=== PATIENT | male | born 1980 | race Caucasian/White ===

== ENCOUNTER → 2020-05-17 | Outpatient (CLI) | payer OTHER ==
[~2020-05-17] MED LIST: BUTA50TA PO; GABA400C PO; HYDR-3363 PO; HYDR7.5T38 PO; LUNE1TAB PO; LUNE2TAB PO; NEXI1CAP3 PO; NICO14DI3 TD; PRAZ2CAP PO; PRAZ5CAP PO; PRAZOSIN PO; PROZAC PO; STRATTERA PO; TOPI200T7 PO; TOPIPOW3 PO; VENL75CA PO; VIAG100T PO; VICO5TAB OR; [UNRECOGNIZED DRUG - OTHER] PO; compound cream TD
== END ==
LOC: M PAIN 08:28
PROVIDERS: ATTEND Family Medicine
DX: M47.817 Spondylosis without myelopathy or radiculopathy, lumbosacral region (principal); F17.200 Nicotine dependence, unspecified, uncomplicated; Z88.6 Allergy status to analgesic agent; Z79.899 Other long term (current) drug therapy

== ENCOUNTER → 2020-05-27 | Outpatient (CLI) | payer OTHER | LOC: M LABSMTC 09:41 | PROVIDERS: ATTEND Anesthesiology | DX: Z11.59 Encounter for screening for other viral diseases (principal) | CPT/HCPCS: C9803; U0003 ==

== ENCOUNTER → 2020-06-01 | Outpatient (CLI) | payer OTHER ==
[~2020-06-01] MED LIST changes: +BUPIVACAINE HCL 0.25% 30ML VIAL As Ordered ONE; +ISOVUE-M 300 61% 15ML VIAL As Ordered ONE; +LIDOCAINE 1% SDV 30ML VIAL As Ordered ONE; +TRIAMCINOLONE ACETONIDE SUSP 40 MG/ML VIAL (J3301) As Ordered ONE; +diazePAM 5 MG TAB As Ordered ONE; +diphenhydrAMINE 25MG CAP As Ordered ONE; +oxyCODONE 5MG TAB As Ordered ONE
--- NOTE | 2020-06-02 16:36 | ECWPNPC ---
PATIENT NAME: AB TURNER : 1980 GENDER: MALE VISIT DATE: 06/01/2020 DISCHARGE DATE: 06/01/20 1122 VISIT LOCKED DATE TIME: PHYSICIAN: CLEMENCIA WU MD RESOURCE: CLEMENCIA WU MD REASON FOR APPOINTMENT 1. BILATERAL LFBT L4-L5,L5-S1 HISTORY OF PRESENT ILLNESS GENERAL: -. FALL RISK SCREENING: SCREENING :TWO OR MORE FALLS WITHOUT INJURY IN THE PAST YEAR PATIENT REPORTS MULTIPLE FALLS WITHOUT INJURY, "KNEES GIVING OUT" 3 WEEKS AGO PAIN SCREENING: PATIENT HAS A COMPLAINT OF ACUTE OR CHRONIC PAIN :YES LOCATION OF PAIN:LOW BACK INTENSITY OF PAIN (SCALE OF 1 TO 10):8 WHAT DOES YOUR PAIN FEEL LIKE:ACHING, SHARP, THROBBING DURATION:CONTINOUS, ALL DAY, AWAKENS FROM SLEEP PAIN IS INCREASED BY:ACTIVITIES, PROLONGED STANDING PAIN IS DECREASED BY:USE OF PAIN MEDICATIONS NURSING NOTE: DISCUSSED RECENT VACCINATIONS OF PNEUMONIA AND INFLUENZA WITHIN LAST TWO WEEKS WITH DR. WU, PROVIDER AWARE AND OKAY WITH PROCEEDING WITH PROCEDURE. PAIN CENTER INTAKE QUESTIONS: DO YOU HAVE A HISTORY OF MRSA? :NO DO YOU TAKE A BLOOD THINNERS? :NO DO YOU HAVE ANY BLEEDING DISORDERS? :NO ANY NEW NUMBNESS OR WEAKNESS IN YOUR LEGS OR ARMS? :NO ANY PACEMAKER,DEFIBRILLATOR, OR DORSAL COLUMN STIMULATOR? :NO DO YOU HAVE ANY RASHES OR OPEN SORES? :YES FRAGILE SKIN ON LEGS, SKIN TEARS SCABBED OVER ARE YOU ALLERGIC TO IV DYE? :NO ARE YOU DIABETIC? :YES BORDERLINE ANY NEW PROBLEMS WITH YOUR MEDICATIONS? :NO HAVE YOU RECEIVED A VACCINE IN THE PAST 30 DAYS? :YES IF SO WHAT VACCINE AND WHEN? 2 WEEKS AGO PNEUMONIA AND INFLUENZA VACCINE (AT [facility] IN [place]) DO YOU PLAN TO RECEIVE A VACCINE IN THE NEXT 21 DAYS? :NO DO YOU TAKE ANY IMMUNOSUPPRESSIVE MEDICATIONS? :NO ANY HISTORY OF SEIZURES? :NO ANY HISTORY OF CARDIAC ISSUES OR EVENTS? :NO DO YOU HAVE SLEEP APNEA? :YES DO YOU WEAR A CPAP?NO BIPAP WITH 3LPM BLEED IN ANY RECENT HEAD INJURY? :NO DO YOU HAVE ANY NEW INFECTIONS? :NO IS THERE A CHANCE YOU COULD BE ? :NO ARE YOU BREAST FEEDING? :NO WHEN DID YOU LAST EAT? : 06/01/2020 0030 WHEN DID YOU LAST DRINK? : 06/01/2020 0400 WHAT DID YOU LAST DRINK? : WATER NAME OF PERSON DRIVING YOU HOME? : ABBIE TURNER (MOTHER) DO YOU HAVE ANY OTHER QUESTIONS OR CONCERNS? : NO CURRENT MEDICATIONS TAKING ARIPIPRAZOLE 20 MG TABLET 1 TABLET ORALLY ONCE A DAY, NOTES: 05/31/2020 0800 TAKING HYDROXYZINE HCL 25 MG TABLET 1 TABLET NEEDED ORALLY EVERY 8 HRS, NOTES: FEW DAYS AGO TAKING SERTRALINE HCL 100 MG TABLET 2 TABLET ORALLY ONCE A DAY, NOTES: 05/31/2020 0800 TAKING BUPROPION HCL ER (SR) 150 MG TABLET EXTENDED RELEASE 12 HOUR 1 TABLET IN THE MORNING ORALLY ONCE A DAY, NOTES: 05/31/2020 0800 TAKING PRAZOSIN HCL 2 MG CAPSULE 4 CAPSULE AT BEDTIME ORALLY ONCE A DAY, NOTES: 05/31/2020 2200 TAKING PREGABALIN 75 MG CAPSULE 1 CAPSULE ORALLY BID, NOTES: 05/31/2020 1400 TAKING ALBUTEROL SULFATE HFA 108 (90 BASE) MCG/ACT AEROSOL SOLUTION 2 PUFFS NEEDED INHALATION EVERY 4 HRS, NOTES: NONE RECENT TAKING CARISOPRODOL 350 MG TABLET 1 TABLET NEEDED ORALLY BID, NOTES: 05/31/2020 1800 TAKING TIOTROPIUM BROMIDE MONOHYDRATE 2.5 MCG/ACT AEROSOL SOLUTION 2 PUFFS INHALATION ONCE A DAY, NOTES: 05/31/2020 0800 TAKING RIBOFLAVIN 100 MG CAPSULE 2 CAPSULES ORALLY BID, NOTES: 05/31/2020 1300 TAKING SILDENAFIL CITRATE 100 MG TABLET 1 TABLET NEEDED ORALLY ONCE A DAY, NOTES: NONE RECENT TAKING OXYCODONE HCL 5 MG TABLET 1 TABLET NEEDED ORALLY BID MDD 2, NOTES: 05/31/2020 2100 TAKING EPINEPHRINE PF 1 MG/ML SOLUTION DIRECTED INJECTION , NOTES: NONE RECENT TAKING MULTIVITAMIN - TABLET 1 TABLET ORALLY ONCE A DAY, NOTES: 05/31/2020 0800 TAKING NICORETTE 2 MG GUM 1 PIECE FOR 30 MINUTE NEEDED MOUTH/THROAT 24 TIME(S) A DAY, NOTES: NONE RECENT TAKING BUDESONIDE-FORMOTEROL FUMARATE 160-4.5 MCG/ACT AEROSOL 2 PUFFS INHALATION TWICE A DAY, NOTES: 05/31/2020 1400 TAKING FAMOTIDINE 20 MG TABLET 1 TABLET AT BEDTIME NEEDED ORALLY ONCE A DAY, NOTES: NONE RECENT TAKING CARBOXYMETHYLCELLULOSE SODIUM 0.5 % SOLUTION 1 DROP OPHTHALMIC TID, NOTES: NONE RECENT TAKING ESZOPICLONE 2 MG TABLET 1 TABLET IMMEDIATELY BEFORE BEDTIME ORALLY ONCE A DAY, NOTES: 05/31/2020 2100 TAKING MAGNESIUM OXIDE 400 MG TABLET 1 TABLET NEEDED ORALLY ONCE A DAY, NOTES: 05/31/2020 0800 TAKING VITAMIN B COMPLEX - TABLET DIRECTED ORALLY DAILY, NOTES: 05/31/2020 0800 NOT-TAKING ZOLOFT 100 MG TABLET 1 TABLET ORALLY ONCE A DAY, NOTES: DUPLICATE MEDICATION LIST REVIEWED AND RECONCILED WITH THE PATIENT PAST MEDICAL HISTORY PTSD BORDERLINE DIABETIC TBI (2010, 2008, 2006) GANESH WITH BIPAP WITH 3 LITER BLEED IN DEPRESSION ANXIETY INSOMNIA ED (DUE TO MEDICATIONS) HYPOXIA (CO2 RETENTION) SECONDARY TO GANESH; TOXIN EXPOSURE WHILE DEPLOYED ALLERGIES KETOROLAC TROMETHAMINE: HIVES - ALLERGY LATEX (FOR ALLERGY USE ONLY): HIVES - ALLERGY WHEAT: HIVES - ALLERGY SURGICAL HISTORY CHEST TUBE PLACEMENT 02/1980 UMBILICAL HERNIA REPAIR 02/1980 APPENDECTOMY 2000 RIGHT INGUINAL HERNAI REPAIR 2012 GALLBLADDER REMOVED 2011 BOTTOM WISDOM TEETH REMOVED 2010 FAMILY HISTORY FATHER: 66 YRS, DIAGNOSED WITH UNSPECIFIED HEART DISEASE MOTHER: ALIVE, HYPERTENSION, UNSPECIFIED HEART DISEASE, DIABETES SIBLINGS: ALIVE SON(S): ALIVE DAUGHTER(S): ALIVE 2019 YRS 4 SONS AND 1 DAUGHTER, ALIVE AND WELL. SOCIAL HISTORY GENERAL: TOBACCO USE ARE YOU A:CURRENT SMOKER ARE YOU INTERESTED IN QUITTING?THINKING ABOUT QUITTING PREVIOUS QUIT ATTEMPTS?YES, WITHIN THE LAST 6 MONTHS. COUNSELED THE PATIENT ON SMOKING CESSATION, EDUCATION [id number]/2020 HOW MANY CIGARETTES A DAY DO YOU SMOKE?5 OR LESS HOW SOON AFTER YOU WAKE UP DO YOU SMOKE YOUR FIRST CIGARETTE?31-60 MIN HOW OFTEN DO YOU SMOKE CIGARETTES?EVERY DAY PATIENT COUNSELED ON THE DANGERS OF TOBACCO USE AND URGED TO QUIT:06/01/2020 LATEX QUESTIONNAIRE LATEX ALLERGY : HAVE YOU EVER DEVELOPED ANY TYPE OF REACTION AFTER HANDLING LATEX PRODUCTS SUCH RUBBER GLOVES, CONDOMS, DIAPHRAGMS, BALLOONS, SOCKS, OR UNDERWEAR?YES - PLEASE INDICATE :RUBBER GLOVES, CONDOMS LATEX ALLERGY : HAVE YOU EVER DEVELOPED ANY TYPE OF REACTION DURING OR AFTER DENTAL APPOINTMENT, VAGINAL/RECTAL EXAMINATION, SURGICAL PROCEDURE, OR ANY OTHER EXPOSURE?NO LATEX RISK : HAVE YOU EVER HAD ANY DIFFICULTY BREATHING OR HIVES AFTER EATING OR HANDLING ANY FRUITS, OR VEGETABLES; SUCH KIWI, BANANAS, STONE FRUITS, OR CHESTNUTSNO LATEX RISK : DO YOU HAVE A PREVIOUS PERSONAL HISTORY OF MORE THAN NINE SURGERIES, SPINA BIFIDA, OR REPEATED CATHERIZATIONS? NO LATEX RISK : ARE YOU FREQUENTLY EXPOSED TO LATEX PRODUCTS IN YOUR OCCUPATION?NO DATE ASKED : 05/31/2020 LUNG CANCER SCREENING SMOKING STATUS:CURRENT SMOKER IS THE PATIENT BETWEEN THE AGE OF 55 AND 77?NO ALCOHOL SCREENING DID YOU HAVE A DRINK CONTAINING ALCOHOL IN THE PAST YEAR?YES HOW OFTEN DID YOU HAVE A DRINK CONTAINING ALCOHOL IN THE PAST YEAR?MONTHLY OR LESS (1 POINT) HOW MANY DRINKS DID YOU HAVE ON A TYPICAL DAY WHEN YOU WERE DRINKING IN THE PAST YEAR?1 OR 2 (0 POINTS) HOW OFTEN DID YOU HAVE SIX OR MORE DRINKS ON ONE OCCASION IN THE PAST YEAR?NEVER (0 POINTS) POINTS1 INTERPRETATIONNEGATIVE RECREATIONAL DRUG USE DRUG USE?NO CAFFEINE CAFFEINE USE?YES 2-3 DAILY LANGUAGE LANGUAGES SPOKEN:SUDANESE LEARNING BARRIERS / SPECIAL NEEDS BARRIERS TO LEARNING?NO HEARING IMPAIRED?YES MINOR HEARING LOSS DUE TO VISION IMPAIRED?YES :CORRECTIVE LENSES COGNITIVELY IMPAIRED?NO READINESS TO LEARN?YES LEARNING PREFERENCES?YES :HANDOUTS, DEMONSTRATION/VERBAL INSTRUCTION, OTHER (PLEASE COMMENT) HANDS ON LEARNING CAPABILITIES PRESENT?YES EMOTIONAL BARRIERS?YES COMMENTSDOCUMENTED IN NOTES SECTION> PTSD SPECIAL DEVICES?YES :CANE SURVEY RESEARCH CENTER DIRECTOR NEEDED?NO DOMESTIC VIOLENCE STATUS: DO YOU FEEL SAFE IN YOUR ENVIRONMENT?YES OCCUPATION: COMBAT , 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 EXERCISE: WALKS, DAILY. MARITAL STATUS: . OTHERS AT HOME: SPOUSE, CHILDREN, MOTHER. PAIN CLINIC PFS, CLERGY, PUBLIC HEALTH REFERRALS HAS THE PATIENT BEEN EDUCATED REGARDING HIS/HER PLAN OF CARE?YES HAS THE PATIENT BEEN EDUCATED REGARDING PAIN, THE RISK FOR PAIN, THE IMPORTANCE OF EFFECTIVE PAIN MANAGEMENT, AND THE PAIN ASSESSMENT PROCESS?YES ADVANCE DIRECTIVE ADVANCE DIRECTIVE DISCUSSED WITH PATIENT:YES PATIENT DENIES ANY ADVANCED DIRECTIVES 05/31/20 REVIEWED WITH PATIENT 06/01/2020 0927 XIAO. HOSPITALIZATION/MAJOR DIAGNOSTIC PROCEDURE FOUR WEEKS VOLUNTARY ADMISSION TO SOLDIERS AND SAILORS [facility] 2011 VITAL SIGNS WT 185.4 LBS, HT 60 IN, BMI 36.20 INDEX, BP 121/69 MM HG, HR 85 /MIN, RR 18 /MIN, TEMP 98.0 F, OXYGEN SAT % 97%, SAFE IN ENV? (Y/N) Y, NA INITIALS AW 0859, REVIEWED BY: XIAO. EXAMINATION GENERAL EXAMINATION: THE PATIENT IS ALERT, ORIENTED TIMES THREE AND COOPERATIVE. HEART SHOWS REGULAR RHYTHM, NO MURMURS AND NO GALLOPS. LUNGS ARE CLEAR TO AUSCULTATION. ASSESSMENTS SPONDYLOSIS WITHOUT MYELOPATHY OR RADICULOPATHY, LUMBAR REGION - M47.816 (PRIMARY) SPONDYLOSIS WITHOUT MYELOPATHY OR RADICULOPATHY, LUMBOSACRAL REGION - M47.817 TREATMENT SPONDYLOSIS WITHOUT MYELOPATHY OR RADICULOPATHY, LUMBAR REGION SMC FACET BLOCK (PAIN)[id number] PROCEDURES PN LUMBAR FACET BLOCK THERAPEUTIC PRE PROCEDURE DIAGNOSIS LUMBAR SPONDYLOSIS, LUMBOSACRAL SPONDYLOSIS POST PROCEDURE DIAGNOSIS LUMBAR SPONDYLOSIS, LUMBOSACRAL SPONDYLOSIS PROCEDURE BILATERAL L4-L5 AND BILATERAL L5-S1 LUMBAR FACET THERAPEUTIC BLOCK SURGEON DR. CLEMENCIA WU LAUNDRY AGENT NONE ANESTHESIA LOCAL PRE PROCEDURE NOTE THE PATIENT HAS A HISTORY OF CHRONIC LOW BACK PAIN. I EVALUATED THE PATIENT AND REVIEWED THE CHART. I WENT OVER THE RISKS, ALTERNATIVES, AND BENEFITS ASSOCIATED WITH THIS PROCEDURE. I DISCUSSED THAT THE USE OF STEROIDS MAY CONTRIBUTE TO IMMUNOSUPPRESSION OF THE PATIENT'S BODY AGAINST INFECTIONS SUCH COVID-19. THE PATIENT IS AWARE OF THE POTENTIAL COMPLICATIONS ASSOCIATED WITH THIS VIRUS, INCLUDING, BUT NOT LIMITED TO, . THE PATIENT WOULD LIKE TO PROCEED AND GIVES CONSENT TO PERFORM THE PROCEDURE. THE PATIENT DENIES UNEXPLAINABLE WEIGHT LOSS, FEVER, CHILLS, OR NEW CHANGES IN URINARY OR BOWEL CONTROL. THE PATIENT IS COVID-19 NEGATIVE DESCRIPTION OF PROCEDURE THE PATIENT WAS BROUGHT TO THE PROCEDURE ROOM AND PLACED IN THE PRONE POSITION. THE LUMBOSACRAL AREA WAS CLEANED WITH CHLORAPREP SOLUTION AND DRAPED ASEPTICALLY. THE PROCEDURE WAS DONE UNDER STERILE CONDITIONS. A TIMEOUT WAS PERFORMED WHERE LATERALITY AND THE SITE OF THE PROCEDURE WERE CHECKED AND CONFIRMED WITH EVERYONE IN THE ROOM. UNDER FLUOROSCOPIC GUIDANCE, THE TARGET POINT WAS SELECTED AT THE RIGHT AND LEFT L4-L5 AND RIGHT AND LEFT L5-S1 FACET JOINTS. TARGET POINT WAS SELECTED AFTER LATERAL ROTATION AND TILT OF THE MAGNIFIER OF THE C-ARM. I CONFIRMED AGAIN WITH EVERYONE IN THE ROOM THE LATERALITY OF THE TARGET. LIDOCAINE 0.5% WAS USED TO NUMB THE SKIN AND THE SUBCUTANEOUS TISSUE BELOW IT. SPINAL NEEDLES, 22-GAUGE, WERE ADVANCED UNDER FLUOROSCOPIC GUIDANCE AND FOLLOWING PATIENT FEEDBACK UNTIL THE TARGETS WERE TOUCHED. THE POSITION OF THE NEEDLES WAS VERIFIED WITH AP AND LATERAL VIEWS. AFTER PROPER POSITION OF THE NEEDLES WAS ACHIEVED, ISOVUE-M DYE 30%, 0.1 ML, WAS INJECTED SHOWING ADEQUATE SPREAD OF THE DYE. KENALOG 20 MG WAS INJECTED AT EACH SITE. THEN, A SOLUTION OF 1.0 ML OF BUPIVACAINE 0.125% OF WAS USED TO FLUSH EACH SITE. THE MEDICATION WAS VERIFIED WITH THE NURSE. THERE WAS NO EVIDENCE OF BLOOD, PARESTHESIA OR CEREBROSPINAL FLUID DURING THE PROCEDURE. THE PATIENT WAS SENT TO THE RECOVERY ROOM. THE PATIENT WAS MOVING THE EXTREMITIES AND DOING WELL. THERE WERE NO COMPLICATIONS DURING THE PROCEDURE. ESTIMATED BLOOD LOSS WAS LESS THAN 5 ML. FLUOROSCOPY TIME WAS 33 SECONDS POST PROCEDURE NOTE IN THE RECOVERY ROOM, THE PATIENT ATE SALTINE CRACKERS AND THEN REMEMBERED HE HAS ALLERY TO WHEAT. THE PATIENT WAS GIVEN BENADRYL AND KEPT FOR OBSERVATION FOR A WHILE. THE PATIENT WILL BE SEEN IN A FOLLOW UP IN THE NEXT FEW WEEKS. I AM LOOKING FOR LONG LASTING RELIEF FOR THE PATIENT WITH THIS INTERVENTION. INSTRUCTIONS WERE GIVEN, QUESTIONS WERE ANSWERED, AND THE PATIENT EXPRESSED UNDERSTANDING AND AGREES WITH THE PLAN. I, ROGERS DONALD, DOCUMENTED THE ABOVE INFORMATION ACTING A SCRIBE FOR DR. WU. I HAVE REVIEWED THE ABOVE DOCUMENT, WRITTEN BY ROGERS DONALD, FIRE INVESTIGATION LIEUTENANT, AND I VERIFY THAT IT IS ACCURATE PROCEDURE CODES 46133 INJ PARAVERT F JNT L/S 1 LEV, MODIFIERS: 50 [id number] INJ PARAVERT F JNT L/S 2 LEV, MODIFIERS: 50 DISPOSITION & COMMUNICATION FOLLOW UP FOLLOW UP WITH GUN STOCK CHECKER (REASON: POST BILATERAL THERAPEUTIC FACET BLOCK L4-L5, L5-S1) ELECTRONICALLY SIGNED BY CLEMENCIA WU MD, MD ON 06/02/2020 AT 04:34 PM EDT DISCLAIMER : THIS IS A VISIT SUMMARY EXTRACTED FROM THE [employer] CHART. IT IS NOT A COPY OF THE [employer] PROGRESS NOTE. MTDD
--- NOTE | 2020-06-08 12:59 | REP ---
PARTIAL LUMBAR SPINE SERIES: 2-VIEWS HISTORY: Bilateral lumbar facet injection for pain. 33 seconds of fluoroscopy time is reported. FINDINGS: A sequence of two [id number] fluoroscopically obtained spot radiographs of the lumbar spine document various needle positions associated with lumbar facet injection procedure. MTDD
== END ==
LOC: M PAIN 08:30
PROVIDERS: ATTEND Anesthesiology
DX: M47.816 Spondylosis without myelopathy or radiculopathy, lumbar region (principal); M47.817 Spondylosis without myelopathy or radiculopathy, lumbosacral region; G47.33 Obstructive sleep apnea (adult) (pediatric); G47.00 Insomnia, unspecified; F17.210 Nicotine dependence, cigarettes, uncomplicated; Z86.59 Personal history of other mental and behavioral disorders; Z87.820 Personal history of traumatic brain injury; Z88.6 Allergy status to analgesic agent; Z91.018 Allergy to other foods; Z91.040 Latex allergy status; Z79.899 Other long term (current) drug therapy
CPT/HCPCS: 64493; 64494; J3301; Q9967

== ENCOUNTER → 2020-06-22 | Outpatient (CLI) | payer OTHER ==
[~2020-06-22] MED LIST changes: -BUPIVACAINE HCL 0.25% 30ML VIAL As Ordered ONE; -ISOVUE-M 300 61% 15ML VIAL As Ordered ONE; -LIDOCAINE 1% SDV 30ML VIAL As Ordered ONE; -TRIAMCINOLONE ACETONIDE SUSP 40 MG/ML VIAL (J3301) As Ordered ONE; -diazePAM 5 MG TAB As Ordered ONE; -diphenhydrAMINE 25MG CAP As Ordered ONE; -oxyCODONE 5MG TAB As Ordered ONE
--- NOTE | 2020-06-23 09:40 | ECWPNPC ---
PATIENT NAME: AB TURNER : 1980 GENDER: MALE VISIT DATE: 06/22/2020 DISCHARGE DATE: 06/22/20 0959 VISIT LOCKED DATE TIME: PHYSICIAN: AUGUST HUTCHINS RESOURCE: AUGUST HUTCHINS REASON FOR APPOINTMENT 1. POST BILATERAL THERAPEUTIC FACET BLOCK L4-L5, L5-S1 HISTORY OF PRESENT ILLNESS GENERAL: - 40-YEAR-OLD MALE IN FOR POST FACET BLOCK FOLLOW-UP. PATIENT FEELS THE PROCEDURE HELPED HIM FOR APPROXIMATELY 2 WEEKS. HE RATES HIS PAIN CURRENTLY AT A 7 OUT OF 10 AND DESCRIBES IT ACHING, SHARP, STABBING, AND TENDER. FALL RISK SCREENING: SCREENING :ONE FALL WITHOUT INJURY IN THE PAST YEAR PATEINT FELL IN 2019. PATIENT STATES HIS KNEES GAVE OUT. BRENDA DID NOT SEEK MEDICAL TREATMENT. PAIN SCREENING: PATIENT HAS A COMPLAINT OF ACUTE OR CHRONIC PAIN :YES LOCATION OF PAIN:LOW BACK INTENSITY OF PAIN (SCALE OF 1 TO 10):7 WHAT DOES YOUR PAIN FEEL LIKE:ACHING, SHARP, STABBING, TENDER DURATION:CONSTANT PAIN IS INCREASED BY:ACTIVITIES, PROLONGED STANDING PAIN IS DECREASED BY:USE OF PAIN MEDICATIONS, OTHERS PAIN MEDS , HEAT AND REST HELPS TO REDUCE PAIN. NURSING NOTE: -. PAIN CENTER INTAKE QUESTIONS: DO YOU HAVE A HISTORY OF MRSA? :NO DO YOU TAKE A BLOOD THINNERS? :NO DO YOU HAVE ANY BLEEDING DISORDERS? :NO ANY NEW NUMBNESS OR WEAKNESS IN YOUR LEGS OR ARMS? :NO ANY PACEMAKER,DEFIBRILLATOR, OR DORSAL COLUMN STIMULATOR? :NO DO YOU HAVE ANY RASHES OR OPEN SORES? :NO ARE YOU ALLERGIC TO IV DYE? :NO ARE YOU DIABETIC? :NO ANY NEW PROBLEMS WITH YOUR MEDICATIONS? :NO HAVE YOU RECEIVED A VACCINE IN THE PAST 30 DAYS? :NO DO YOU PLAN TO RECEIVE A VACCINE IN THE NEXT 21 DAYS? :NO DO YOU NEED ANY PRESCRIPTION? :NO DO YOU TAKE ANY IMMUNOSUPPRESSIVE MEDICATIONS? :NO IS THERE A CHANCE YOU COULD BE ? :NO ARE YOU BREAST FEEDING? :NO CURRENT MEDICATIONS TAKING ZOLOFT 100 MG TABLET 1 TABLET ORALLY ONCE A DAY, NOTES: DUPLICATE TAKING ARIPIPRAZOLE 20 MG TABLET 1 TABLET ORALLY ONCE A DAY, NOTES: 05/31/2020 0800 TAKING HYDROXYZINE HCL 25 MG TABLET 1 TABLET NEEDED ORALLY EVERY 8 HRS, NOTES: FEW DAYS AGO TAKING SERTRALINE HCL 100 MG TABLET 2 TABLET ORALLY ONCE A DAY, NOTES: 05/31/2020 0800 TAKING BUPROPION HCL ER (SR) 150 MG TABLET EXTENDED RELEASE 12 HOUR 1 TABLET IN THE MORNING ORALLY ONCE A DAY, NOTES: 05/31/2020 0800 TAKING PRAZOSIN HCL 2 MG CAPSULE 4 CAPSULE AT BEDTIME ORALLY ONCE A DAY, NOTES: 05/31/2020 2200 TAKING PREGABALIN 75 MG CAPSULE 1 CAPSULE ORALLY BID, NOTES: 05/31/2020 1400 TAKING ALBUTEROL SULFATE HFA 108 (90 BASE) MCG/ACT AEROSOL SOLUTION 2 PUFFS NEEDED INHALATION EVERY 4 HRS, NOTES: NONE RECENT TAKING CARISOPRODOL 350 MG TABLET 1 TABLET NEEDED ORALLY BID, NOTES: 05/31/2020 1800 TAKING TIOTROPIUM BROMIDE MONOHYDRATE 2.5 MCG/ACT AEROSOL SOLUTION 2 PUFFS INHALATION ONCE A DAY, NOTES: 05/31/2020 0800 TAKING RIBOFLAVIN 100 MG CAPSULE 2 CAPSULES ORALLY BID, NOTES: 05/31/2020 1300 TAKING SILDENAFIL CITRATE 100 MG TABLET 1 TABLET NEEDED ORALLY ONCE A DAY, NOTES: NONE RECENT TAKING OXYCODONE HCL 5 MG TABLET 1 TABLET NEEDED ORALLY BID MDD 2, NOTES: 05/31/2020 2100 TAKING EPINEPHRINE PF 1 MG/ML SOLUTION DIRECTED INJECTION , NOTES: NONE RECENT TAKING MULTIVITAMIN - TABLET 1 TABLET ORALLY ONCE A DAY, NOTES: 05/31/2020 0800 TAKING NICORETTE 2 MG GUM 1 PIECE FOR 30 MINUTE NEEDED MOUTH/THROAT 24 TIME(S) A DAY, NOTES: NONE RECENT TAKING BUDESONIDE-FORMOTEROL FUMARATE 160-4.5 MCG/ACT AEROSOL 2 PUFFS INHALATION TWICE A DAY, NOTES: 05/31/2020 1400 TAKING FAMOTIDINE 20 MG TABLET 1 TABLET AT BEDTIME NEEDED ORALLY ONCE A DAY, NOTES: NONE RECENT TAKING CARBOXYMETHYLCELLULOSE SODIUM 0.5 % SOLUTION 1 DROP OPHTHALMIC TID, NOTES: NONE RECENT TAKING ESZOPICLONE 2 MG TABLET 1 TABLET IMMEDIATELY BEFORE BEDTIME ORALLY ONCE A DAY, NOTES: 05/31/2020 2100 TAKING MAGNESIUM OXIDE 400 MG TABLET 1 TABLET NEEDED ORALLY ONCE A DAY, NOTES: 05/31/2020 0800 TAKING VITAMIN B COMPLEX - TABLET DIRECTED ORALLY DAILY, NOTES: 05/31/2020 0800 MEDICATION LIST REVIEWED AND RECONCILED WITH THE PATIENT PAST MEDICAL HISTORY PTSD BORDERLINE DIABETIC TBI (2010, 2008, 2006) GANESH WITH BIPAP WITH 3 LITER BLEED IN DEPRESSION ANXIETY INSOMNIA ED (DUE TO MEDICATIONS) HYPOXIA (CO2 RETENTION) SECONDARY TO GANESH; TOXIN EXPOSURE WHILE DEPLOYED ALLERGIES KETOROLAC TROMETHAMINE: HIVES - ALLERGY LATEX (FOR ALLERGY USE ONLY): HIVES - ALLERGY WHEAT: HIVES - ALLERGY SURGICAL HISTORY CHEST TUBE PLACEMENT 02/1980 UMBILICAL HERNIA REPAIR 02/1980 APPENDECTOMY 2000 RIGHT INGUINAL HERNAI REPAIR 2012 GALLBLADDER REMOVED 2011 BOTTOM WISDOM TEETH REMOVED 2010 FAMILY HISTORY FATHER: 66 YRS, DIAGNOSED WITH UNSPECIFIED HEART DISEASE MOTHER: ALIVE, HYPERTENSION, UNSPECIFIED HEART DISEASE, DIABETES SIBLINGS: ALIVE SON(S): ALIVE DAUGHTER(S): ALIVE 2019 YRS 4 SONS AND 1 DAUGHTER, ALIVE AND WELL. SOCIAL HISTORY GENERAL: TOBACCO USE ARE YOU A:CURRENT SMOKER ARE YOU INTERESTED IN QUITTING?THINKING ABOUT QUITTING PREVIOUS QUIT ATTEMPTS?YES, WITHIN THE LAST 6 MONTHS. COUNSELED THE PATIENT ON SMOKING CESSATION, EDUCATION [id number]/2020 HOW MANY CIGARETTES A DAY DO YOU SMOKE?5 OR LESS HOW SOON AFTER YOU WAKE UP DO YOU SMOKE YOUR FIRST CIGARETTE?31-60 MIN HOW OFTEN DO YOU SMOKE CIGARETTES?EVERY DAY PATIENT COUNSELED ON THE DANGERS OF TOBACCO USE AND URGED TO QUIT:06/22/2020 LATEX QUESTIONNAIRE LATEX ALLERGY : HAVE YOU EVER DEVELOPED ANY TYPE OF REACTION AFTER HANDLING LATEX PRODUCTS SUCH RUBBER GLOVES, CONDOMS, DIAPHRAGMS, BALLOONS, SOCKS, OR UNDERWEAR?YES - PLEASE INDICATE :RUBBER GLOVES, CONDOMS LATEX ALLERGY : HAVE YOU EVER DEVELOPED ANY TYPE OF REACTION DURING OR AFTER DENTAL APPOINTMENT, VAGINAL/RECTAL EXAMINATION, SURGICAL PROCEDURE, OR ANY OTHER EXPOSURE?NO LATEX RISK : HAVE YOU EVER HAD ANY DIFFICULTY BREATHING OR HIVES AFTER EATING OR HANDLING ANY FRUITS, OR VEGETABLES; SUCH KIWI, BANANAS, STONE FRUITS, OR CHESTNUTSNO LATEX RISK : DO YOU HAVE A PREVIOUS PERSONAL HISTORY OF MORE THAN NINE SURGERIES, SPINA BIFIDA, OR REPEATED CATHERIZATIONS? NO LATEX RISK : ARE YOU FREQUENTLY EXPOSED TO LATEX PRODUCTS IN YOUR OCCUPATION?NO DATE ASKED : 06/22/2020 LUNG CANCER SCREENING SMOKING STATUS:CURRENT SMOKER IS THE PATIENT BETWEEN THE AGE OF 55 AND 77?NO ALCOHOL SCREENING DID YOU HAVE A DRINK CONTAINING ALCOHOL IN THE PAST YEAR?YES HOW OFTEN DID YOU HAVE A DRINK CONTAINING ALCOHOL IN THE PAST YEAR?MONTHLY OR LESS (1 POINT) HOW MANY DRINKS DID YOU HAVE ON A TYPICAL DAY WHEN YOU WERE DRINKING IN THE PAST YEAR?1 OR 2 (0 POINTS) HOW OFTEN DID YOU HAVE SIX OR MORE DRINKS ON ONE OCCASION IN THE PAST YEAR?NEVER (0 POINTS) POINTS1 INTERPRETATIONNEGATIVE RECREATIONAL DRUG USE DRUG USE?NO CAFFEINE CAFFEINE USE?YES 2-3 DAILY LANGUAGE LANGUAGES SPOKEN:GEORGIAN LEARNING BARRIERS / SPECIAL NEEDS BARRIERS TO LEARNING?NO HEARING IMPAIRED?YES MINOR HEARING LOSS DUE TO VISION IMPAIRED?YES COGNITIVELY IMPAIRED?NO :CORRECTIVE LENSES READINESS TO LEARN?YES LEARNING PREFERENCES?YES :HANDOUTS, DEMONSTRATION/VERBAL INSTRUCTION, OTHER (PLEASE COMMENT) HANDS ON LEARNING CAPABILITIES PRESENT?YES EMOTIONAL BARRIERS?YES COMMENTSDOCUMENTED IN NOTES SECTION> PTSD SPECIAL DEVICES?YES :CANE ASSEMBLY ASSOCIATE NEEDED?NO DOMESTIC VIOLENCE STATUS: DO YOU FEEL SAFE IN YOUR ENVIRONMENT?YES OCCUPATION: COMBAT , 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 EXERCISE: WALKS, DAILY. MARITAL STATUS: . OTHERS AT HOME: SPOUSE, CHILDREN, MOTHER. PAIN CLINIC PFS, CLERGY, PUBLIC HEALTH REFERRALS HAS THE PATIENT BEEN EDUCATED REGARDING HIS/HER PLAN OF CARE?YES HAS THE PATIENT BEEN EDUCATED REGARDING PAIN, THE RISK FOR PAIN, THE IMPORTANCE OF EFFECTIVE PAIN MANAGEMENT, AND THE PAIN ASSESSMENT PROCESS?YES ADVANCE DIRECTIVE ADVANCE DIRECTIVE DISCUSSED WITH PATIENT:YES PATIENT DENIES ANY ADVANCED DIRECTIVES 05/31/20 REVIEWED WITH PATIENT 06/01/2020 0927 JS. HOSPITALIZATION/MAJOR DIAGNOSTIC PROCEDURE FOUR WEEKS VOLUNTARY ADMISSION TO SOLDIERS AND SAILORS [facility] 2011 REVIEW OF SYSTEMS CONSTITUTIONAL: ANY RECENT FEVER NO . CHILLS NO . WEIGHT CHANGE OF UNKNOWN REASONS NO . GASTROENTEROLOGY: NEW UNEXPLAINABLE CHANGES IN BOWEL CONTROL NO . CONSTIPATION NO . GENITOURINARY: ANY NEW CHANGE IN BLADDER CONTROL? NO . NEUROLOGY: NEW ONSET DIZZINESS OR NEUROLOGICAL CHANGES NOT MENTIONED NO . NEW NUMBNESS OR PAIN PATTERNS NOT MENTIONED AND PERTINENT TO TODAY'S VISIT NO . CARDIOLOGY: NEW CHEST PRESSURE NO . NEW CHEST PAIN NO . RESPIRATORY: UNEXPLAINABLE COUGH NO . NEW SHORTNESS OF BREATH NO . VITAL SIGNS WT 179.8 LBS, HT 60 IN, BMI 35.11 INDEX, BP 120/75 MM HG, HR 95 /MIN, RR 18 /MIN, TEMP 97.6 F, OXYGEN SAT % 96%, SAFE IN ENV? (Y/N) YES, NA INITIALS AW 0923, REVIEWED BY: DM. EXAMINATION GENERAL EXAMINATION: GENERALNO ACUTE DISTRESS, WELL NOURISHED AND HYDRATED. PSYCHAPPROPRIATE MOOD AND AFFECT . LUNGS:CLEAR TO AUSCULTATION BILATERALLY, NO WHEEZES, RHONCHI, RALES. HEART:NO MURMURS, REGULAR RATE AND RHYTHM. BACK:POINT TENDER ALONG LUMBAR SPINE, SURROUNDING SKIN SHOWS NO ERYTHEMA, ECCHYMOSIS, INCREASED WARMTH, AND/OR SKIN ERUPTIONS NOTED. PATIENT DOES ENDORSE INCREASED PAIN WITH FACET LOADING. . ASSESSMENTS SPONDYLOSIS OF LUMBOSACRAL REGION WITHOUT MYELOPATHY OR RADICULOPATHY - M47.817 (PRIMARY) OTHER CHRONIC PAIN - G89.29 TREATMENT SPONDYLOSIS OF LUMBOSACRAL REGION WITHOUT MYELOPATHY OR RADICULOPATHY PAIN PROCEDURE LOGDATE OF MTXYRIINP27/30/2020PROCEDURE:BILATERAL THERAPEUTIC FACET BLOCK L4-L5, L5-S1NYYPLW OF PRE SEDATEVALIUM 10MG, OXYCODONE 10MG CLINICAL NOTES: 40-YEAR-OLD MALE IN FOR POST BILATERAL THERAPEUTIC LUMBAR FACET BLOCK FOLLOW-UP. GIVEN PRESENTING SYMPTOMS AND RESULTS OF PHYSICAL EXAMINATION RECOMMENDED BILATERAL THERAPEUTIC LUMBAR FACET BLOCK L4-L5 L5-S1 WITH POSTPROCEDURAL FOLLOW-UP. PATIENT HAS EXPRESSED UNDERSTANDING OF AND WAS IN AGREEMENT WITH TREATMENT PLAN. GIVEN TIME TO ASK QUESTIONS AND EXPRESS CONCERNS. PREVENTIVE MEDICINE PAIN CLINIC TEACHING: THE PATIENT HAS BEEN EDUCATED REGARDING PAIN, THE RISK FOR PAIN, THE IMPORTANCE OF EFFECTIVE PAIN MANAGEMENT, AND THE PAIN ASSESSMENT PROCESS. : DISCUSSED PRE PROCEDURE INSTRUCTIONS, PATIENT CARE PLAN, AND TEACHING FOR: BILATERAL THERAPEUTIC LUMBAR FACET BLOCK L4-L5 L5-S1, PATIENT VERBALIZES UNDERSTANDING. PROCEDURE CODES FA211 ESTABILISHED PATIENT [facility] FAC[facility] CHARGE DISPOSITION & COMMUNICATION FOLLOW UP POSTPROCEDURE (REASON: BILATERAL THERAPEUTIC LUMBAR FACET BLOCK L4-L5 L5-S1) ELECTRONICALLY SIGNED BY REDDY RAE ON 06/23/2020 AT 08:41 AM EDT DISCLAIMER : THIS IS A VISIT SUMMARY EXTRACTED FROM THE [facility] CHART. IT IS NOT A COPY OF THE [facility] PROGRESS NOTE. MTDD
== END ==
LOC: M PAIN 09:30
PROVIDERS: ATTEND Family Medicine
DX: G89.29 Other chronic pain (principal); M47.817 Spondylosis without myelopathy or radiculopathy, lumbosacral region; F43.10 Post-traumatic stress disorder, unspecified; R73.03 Prediabetes; G47.33 Obstructive sleep apnea (adult) (pediatric); F32.9 Major depressive disorder, single episode, unspecified; F41.9 Anxiety disorder, unspecified; F17.210 Nicotine dependence, cigarettes, uncomplicated; Z79.899 Other long term (current) drug therapy; Z91.040 Latex allergy status; Z91.018 Allergy to other foods; Z88.8 Allergy status to other drugs, medicaments and biological substances

== ENCOUNTER → 2020-07-08 | Outpatient (CLI) | payer OTHER | LOC: M LABSMTC 11:02 | PROVIDERS: ATTEND Anesthesiology | DX: Z20.828 Contact with and (suspected) exposure to other viral communicable diseases (principal) | CPT/HCPCS: C9803; U0003 ==

== ENCOUNTER → 2020-07-13 | Outpatient (CLI) | payer OTHER ==
[~2020-07-13] MED LIST changes: +BUPIVACAINE HCL 0.25% 30ML VIAL As Ordered ONE; +ISOVUE-M 300 61% 15ML VIAL As Ordered ONE; +LIDOCAINE 1% SDV 30ML VIAL As Ordered ONE; +TRIAMCINOLONE ACETONIDE SUSP 40 MG/ML VIAL (J3301) As Ordered ONE; +diazePAM 5 MG TAB As Ordered ONE; +oxyCODONE 5MG TAB As Ordered ONE
--- NOTE | 2020-07-13 15:40 | REP ---
INDICATION: BILATERAL THERAPEUTIC LUMBAR FACET BLOCK. COMPARISON: 06/01/2020 TECHNIQUE: Two images from C-arm fluoroscopy provided for the Pain [facility] and bilateral lumbar facet injections. FINDINGS: A single oblique image of for approach reviewed side shows a needle at the L4-5 and L5-S1 facets with contrast adjacent. Both right and left sides were injected at these levels. Fluoroscopy time: 35.4 seconds. IMPRESSION: Status post bilateral lower lumbar facet steroid injection. <Electronically signed by Asher Royal > 07/13/20 [id number]
--- NOTE | 2020-07-19 02:22 | ECWPNPC ---
PATIENT NAME: AB TURNER : 1980 GENDER: MALE VISIT DATE: 07/13/2020 DISCHARGE DATE: 07/13/20 155 VISIT LOCKED DATE TIME: PHYSICIAN: CLEMENCIA WU MD RESOURCE: CLEMENCIA WU MD REASON FOR APPOINTMENT 1. BILAT THERA LUMBAR FACET BLK L4-L5 L5-S1 HISTORY OF PRESENT ILLNESS GENERAL: -. FALL RISK SCREENING: SCREENING :TWO OR MORE FALLS WITHOUT INJURY IN THE PAST YEAR STATES HE FALLS ALMOST DAILY DUE TO KNEES GIVING OUT ON HIM PAIN SCREENING: PATIENT HAS A COMPLAINT OF ACUTE OR CHRONIC PAIN :YES LOCATION OF PAIN:LOW BACK INTENSITY OF PAIN (SCALE OF 1 TO 10):6 AVERAGE 7-04/11 WHAT DOES YOUR PAIN FEEL LIKE:ACHING, BURNING, CONTINOUS, SHARP, TENDER, THROBBING, SORE, SHOOTING OCCASSIONAL SHOOTING DURATION:CONTINOUS PAIN IS INCREASED BY: EVERYTHING PAIN IS DECREASED BY: HEAT HELPS A LITTLE, PAIN MEDS, LYING DOWN WITH HEATED BLANKET NURSING NOTE: -. PAIN CENTER INTAKE QUESTIONS: DO YOU HAVE A HISTORY OF MRSA? :NO DO YOU TAKE A BLOOD THINNERS? :NO DO YOU HAVE ANY BLEEDING DISORDERS? :NO ANY NEW NUMBNESS OR WEAKNESS IN YOUR LEGS OR ARMS? :NO ANY PACEMAKER,DEFIBRILLATOR, OR DORSAL COLUMN STIMULATOR? :NO DO YOU HAVE ANY RASHES OR OPEN SORES? :NO ARE YOU ALLERGIC TO IV DYE? :NO ARE YOU DIABETIC? :YES PRE-DIABETIC ANY NEW PROBLEMS WITH YOUR MEDICATIONS? :NO HAVE YOU RECEIVED A VACCINE IN THE PAST 30 DAYS? :NO DO YOU PLAN TO RECEIVE A VACCINE IN THE NEXT 21 DAYS? :NO DO YOU TAKE ANY IMMUNOSUPPRESSIVE MEDICATIONS? :NO ANY HISTORY OF SEIZURES? :NO ANY HISTORY OF CARDIAC ISSUES OR EVENTS? :NO DO YOU HAVE SLEEP APNEA? :YES DO YOU WEAR A CPAP? BIPAP WITH 3L O2 BLED INTO IT ANY RECENT HEAD INJURY? :NO DO YOU HAVE ANY NEW INFECTIONS? :NO IS THERE A CHANCE YOU COULD BE ? :NO ARE YOU BREAST FEEDING? :NO WHEN DID YOU LAST EAT? : 07/13 530 WHEN DID YOU LAST DRINK? : 07/13 730 WHAT DID YOU LAST DRINK? : WATER NAME OF PERSON DRIVING YOU HOME? : ABBIE-MOM DO YOU HAVE ANY OTHER QUESTIONS OR CONCERNS? : NONE CURRENT MEDICATIONS TAKING ZOLOFT 100 MG TABLET 1 TABLET ORALLY ONCE A DAY, NOTES: 07/13 730 TAKING ARIPIPRAZOLE 20 MG TABLET 1 TABLET ORALLY ONCE A DAY, NOTES: 07/13 730 TAKING HYDROXYZINE HCL 25 MG TABLET 1 TABLET NEEDED ORALLY EVERY 8 HRS, NOTES: 2 WEEKS AGO TAKING SERTRALINE HCL 100 MG TABLET 2 TABLET ORALLY ONCE A DAY, NOTES: 07/13 730 TAKING BUPROPION HCL ER (SR) 150 MG TABLET EXTENDED RELEASE 12 HOUR 1 TABLET IN THE MORNING ORALLY ONCE A DAY, NOTES: 07/13 730 TAKING PRAZOSIN HCL 2 MG CAPSULE 4 CAPSULE AT BEDTIME ORALLY ONCE A DAY, NOTES: 07/12 2200 TAKING PREGABALIN 75 MG CAPSULE 1 CAPSULE ORALLY BID, NOTES: 07/13 730 TAKING ALBUTEROL SULFATE HFA 108 (90 BASE) MCG/ACT AEROSOL SOLUTION 2 PUFFS NEEDED INHALATION EVERY 4 HRS, NOTES: 07/12 2000 TAKING CARISOPRODOL 350 MG TABLET 1 TABLET NEEDED ORALLY BID, NOTES: 07/12 2200 TAKING TIOTROPIUM BROMIDE MONOHYDRATE 2.5 MCG/ACT AEROSOL SOLUTION 2 PUFFS INHALATION ONCE A DAY, NOTES: 07/12 2000 TAKING RIBOFLAVIN 100 MG CAPSULE 2 CAPSULES ORALLY BID, NOTES: 07/13 730 TAKING SILDENAFIL CITRATE 100 MG TABLET 1 TABLET NEEDED ORALLY ONCE A DAY, NOTES: NONE RECENT TAKING OXYCODONE HCL 5 MG TABLET 1 TABLET NEEDED ORALLY BID MDD 2, NOTES: 07/13 730 TAKING EPINEPHRINE PF 1 MG/ML SOLUTION DIRECTED INJECTION , NOTES: NEVER TAKING MULTIVITAMIN - TABLET 1 TABLET ORALLY ONCE A DAY, NOTES: 07/13 730 TAKING NICORETTE 2 MG GUM 1 PIECE FOR 30 MINUTE NEEDED MOUTH/THROAT 24 TIME(S) A DAY, NOTES: 2 WEEKS AGO TAKING BUDESONIDE-FORMOTEROL FUMARATE 160-4.5 MCG/ACT AEROSOL 2 PUFFS INHALATION TWICE A DAY, NOTES: 07/13 730 TAKING FAMOTIDINE 20 MG TABLET 1 TABLET AT BEDTIME NEEDED ORALLY ONCE A DAY, NOTES: 07/12 2200 TAKING CARBOXYMETHYLCELLULOSE SODIUM 0.5 % SOLUTION 1 DROP OPHTHALMIC TID, NOTES: LAST WEEK TAKING ESZOPICLONE 2 MG TABLET 1 TABLET IMMEDIATELY BEFORE BEDTIME ORALLY ONCE A DAY, NOTES: 07/12 2200 TAKING MAGNESIUM OXIDE 400 MG TABLET 1 TABLET NEEDED ORALLY ONCE A DAY, NOTES: 11/11 0730 TAKING VITAMIN B COMPLEX - TABLET DIRECTED ORALLY DAILY, NOTES: 07/13 730 MEDICATION LIST REVIEWED AND RECONCILED WITH THE PATIENT PAST MEDICAL HISTORY PTSD BORDERLINE DIABETIC TBI (2010, 2008, 2006) GANESH WITH BIPAP WITH 3 LITER BLEED IN DEPRESSION ANXIETY INSOMNIA ED (DUE TO MEDICATIONS) HYPOXIA (CO2 RETENTION) SECONDARY TO GANESH; TOXIN EXPOSURE WHILE DEPLOYED LOW BACK PAIN ALLERGIES KETOROLAC TROMETHAMINE: HIVES - ALLERGY LATEX (FOR ALLERGY USE ONLY): HIVES - ALLERGY WHEAT: HIVES - ALLERGY SURGICAL HISTORY CHEST TUBE PLACEMENT 02/1980 UMBILICAL HERNIA REPAIR 02/1980 APPENDECTOMY 2000 RIGHT INGUINAL HERNAI REPAIR 2012 GALLBLADDER REMOVED 2011 BOTTOM WISDOM TEETH REMOVED 2010 FAMILY HISTORY FATHER: 66 YRS, DIAGNOSED WITH UNSPECIFIED HEART DISEASE MOTHER: ALIVE, HYPERTENSION, UNSPECIFIED HEART DISEASE, DIABETES SIBLINGS: ALIVE SON(S): ALIVE DAUGHTER(S): ALIVE 2019 YRS 4 SONS AND 1 DAUGHTER, ALIVE AND WELL. SOCIAL HISTORY GENERAL: TOBACCO USE ARE YOU A:CURRENT SMOKER ARE YOU INTERESTED IN QUITTING?THINKING ABOUT QUITTING PREVIOUS QUIT ATTEMPTS?YES, WITHIN THE LAST 6 MONTHS. COUNSELED THE PATIENT ON SMOKING CESSATION, EDUCATION [id number]/21/2020 HOW MANY CIGARETTES A DAY DO YOU SMOKE?5 OR LESS HOW SOON AFTER YOU WAKE UP DO YOU SMOKE YOUR FIRST CIGARETTE?31-60 MIN HOW OFTEN DO YOU SMOKE CIGARETTES?EVERY DAY PATIENT COUNSELED ON THE DANGERS OF TOBACCO USE AND URGED TO QUIT:07/12/2020 LATEX QUESTIONNAIRE LATEX ALLERGY : HAVE YOU EVER DEVELOPED ANY TYPE OF REACTION AFTER HANDLING LATEX PRODUCTS SUCH RUBBER GLOVES, CONDOMS, DIAPHRAGMS, BALLOONS, SOCKS, OR UNDERWEAR?YES - PLEASE INDICATE :RUBBER GLOVES, CONDOMS LATEX ALLERGY : HAVE YOU EVER DEVELOPED ANY TYPE OF REACTION DURING OR AFTER DENTAL APPOINTMENT, VAGINAL/RECTAL EXAMINATION, SURGICAL PROCEDURE, OR ANY OTHER EXPOSURE?NO LATEX RISK : HAVE YOU EVER HAD ANY DIFFICULTY BREATHING OR HIVES AFTER EATING OR HANDLING ANY FRUITS, OR VEGETABLES; SUCH KIWI, BANANAS, STONE FRUITS, OR CHESTNUTSNO LATEX RISK : DO YOU HAVE A PREVIOUS PERSONAL HISTORY OF MORE THAN NINE SURGERIES, SPINA BIFIDA, OR REPEATED CATHERIZATIONS? NO LATEX RISK : ARE YOU FREQUENTLY EXPOSED TO LATEX PRODUCTS IN YOUR OCCUPATION?NO DATE ASKED : 07/12/2020 LUNG CANCER SCREENING SMOKING STATUS:CURRENT SMOKER IS THE PATIENT BETWEEN THE AGE OF 55 AND 77?NO ALCOHOL SCREENING DID YOU HAVE A DRINK CONTAINING ALCOHOL IN THE PAST YEAR?YES HOW OFTEN DID YOU HAVE SIX OR MORE DRINKS ON ONE OCCASION IN THE PAST YEAR?NEVER (0 POINTS) HOW MANY DRINKS DID YOU HAVE ON A TYPICAL DAY WHEN YOU WERE DRINKING IN THE PAST YEAR?1 OR 2 (0 POINTS) HOW OFTEN DID YOU HAVE A DRINK CONTAINING ALCOHOL IN THE PAST YEAR?MONTHLY OR LESS (1 POINT) POINTS1 INTERPRETATIONNEGATIVE RECREATIONAL DRUG USE DRUG USE?NO CAFFEINE CAFFEINE USE?YES 2-3 DAILY LANGUAGE LANGUAGES SPOKEN:EGYPTIAN LEARNING BARRIERS / SPECIAL NEEDS BARRIERS TO LEARNING?NO HEARING IMPAIRED?YES MINOR HEARING LOSS DUE TO VISION IMPAIRED?YES :CORRECTIVE LENSES COGNITIVELY IMPAIRED?NO READINESS TO LEARN?YES LEARNING PREFERENCES?YES :HANDOUTS, DEMONSTRATION/VERBAL INSTRUCTION, OTHER (PLEASE COMMENT) HANDS ON LEARNING CAPABILITIES PRESENT?YES EMOTIONAL BARRIERS?YES COMMENTSDOCUMENTED IN NOTES SECTION> PTSD SPECIAL DEVICES?YES :CANE TRAUMA MANAGER NEEDED?NO DOMESTIC VIOLENCE STATUS: DO YOU FEEL SAFE IN YOUR ENVIRONMENT?YES OCCUPATION: COMBAT , 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 EXERCISE: WALKS, DAILY. MARITAL STATUS: . OTHERS AT HOME: SPOUSE, CHILDREN, MOTHER. PAIN CLINIC PFS, CLERGY, PUBLIC HEALTH REFERRALS HAS THE PATIENT BEEN EDUCATED REGARDING HIS/HER PLAN OF CARE?YES HAS THE PATIENT BEEN EDUCATED REGARDING PAIN, THE RISK FOR PAIN, THE IMPORTANCE OF EFFECTIVE PAIN MANAGEMENT, AND THE PAIN ASSESSMENT PROCESS?YES ADVANCE DIRECTIVE ADVANCE DIRECTIVE DISCUSSED WITH PATIENT:YES 07/13/2020 PT STATES HE DOES NOT HAVE ANY ADVANCED DIRECTIVES AND HE DECLINES INFORMATION ON HCP AT THIS TIME. AD HOSPITALIZATION/MAJOR DIAGNOSTIC PROCEDURE FOUR WEEKS VOLUNTARY ADMISSION TO [facility] 2011 VITAL SIGNS WT 180.4 LBS, HT 60 IN, BMI 35.23 INDEX, BP 130/76 MM HG, HR 86 /MIN, RR 18 /MIN, TEMP 96.8 F, OXYGEN SAT % 96%, SAFE IN ENV? (Y/N) Y, NA INITIALS AW 1400, REVIEWED BY: ALLY BOLES 1412. EXAMINATION GENERAL EXAMINATION: THE PATIENT IS ALERT, ORIENTED TIMES THREE AND COOPERATIVE. HEART SHOWS REGULAR RHYTHM, NO MURMURS AND NO GALLOPS. LUNGS ARE CLEAR TO AUSCULTATION. ASSESSMENTS SPONDYLOSIS WITHOUT MYELOPATHY OR RADICULOPATHY, LUMBAR REGION - M47.816 (PRIMARY) SPONDYLOSIS WITHOUT MYELOPATHY OR RADICULOPATHY, LUMBOSACRAL REGION - M47.817 TREATMENT SPONDYLOSIS WITHOUT MYELOPATHY OR RADICULOPATHY, LUMBAR REGION [facility] FACET BLOCK (PAIN)[id number] MEDICATION: VALIUM TAB 10MG ORALLY (DIAZEPAM)GADIEL LERMA 07/13/2020 2:35:11 PM > LOT # [id number] EXP 12/2020 COURTNEY ARANA 07/13/2020 2:37:01 PM > VERIFIED GADIEL LERMA 07/13/2020 2:40:14 PM > ADMINISTERED MEDICATION: OXYCODONE HCL TAB 10MG ORALLYCOURTNEY ARANA 07/13/2020 2:37:55 PM > VERIFIED LOT [id number] COURTNEY ARANA 07/13/2020 2:38:13 PM > EXP 10/2021 GADIEL LERMA 07/13/2020 2:40:43 PM > ADMINISTERED OTHERS NOTES: 07/12/2020 1516 PRE-PROCEDURE CALL COMPLETED. Dorota LERMA RN. PROCEDURES PAIN NURSING RECORD PRE-PROCEDURE IV SITE N/A, PRE-PROCEDURE ORAL MEDICATIONS SEE MEDICATIONS ORDER : IV SITE N/A, PRE-PROCEDURE ORAL MEDICATIONS SEE MEDICATIONS ORDER PROCEDURE IN ROOM 1500, PHYSICIAN IN ROOM 1517, START 1522, FINISH 1528, PHYSICIAN OUT OF ROOM 1529, OUT OF ROOM 1535, STEROID KENALOG, O2 RA, ECG NORMAL SINUS, PATIENT SHIELDED YES, SAFETY STRAP YES, PREP CHLOROPREP BY Radha ARANA RN, IV INFUSED N/A, DRESSING TEGADERM BY DR. WU LOC: GADIEL LERMA 07/13/2020 2:43:41 PM > 1. ALERT, ORIENTED MARIA GUADALUPEGADIEL 07/13/2020 3:49:24 PM > 1. ALERT, ORIENTED RESP: GADIEL LERMA 07/13/2020 2:43:44 PM > 1. REGULAR, NO DYSPNEA GADIEL LERMA 07/13/2020 3:49:43 PM > 1. REGULAR, NO DYSPNEA COLOR: GADIEL LERMA 07/13/2020 2:43:48 PM > 1. PINK MARIA GUADALUPEGADIEL 07/13/2020 3:49:50 PM > 1. PINK SKIN: GADIEL LERMA 07/13/2020 2:43:58 PM > 1. WARM, DRY FORREST LERMAITA 07/13/2020 3:49:57 PM > 1. WARM, DRY POSITION: GADIEL LERMA 07/13/2020 3:01:52 PM > 1. PRONE GADIEL LERMA 07/13/2020 3:50:05 PM > 4. OTHER-SITTING VITALS: GADIEL LERMA 07/13/2020 3:02:04 PM > 133/85,80,16,96% GADIEL LERMA 07/13/2020 3:16:04 PM > 138/82,82,16,97% GADIEL LERMA 07/13/2020 3:31:18 PM > 139/86,81,16,95% GADIEL LERMA 07/13/2020 3:50:19 PM > 120/79,81,16,99% DISCHARGE: POST PAIN 0, DRESSING SITE DRY AND INTACT, IV N/A, GAIT STEADY, TEACHING COMPLETED, PATIENT ACKNOWLEDGES UNDERSTANDING YES, PATIENT DISCHARGED AT 1551 PN LUMBAR FACET BLOCK THERAPEUTIC PRE PROCEDURE DIAGNOSIS LUMBAR SPONDYLOSIS, LUMBOSACRAL SPONDYLOSIS POST PROCEDURE DIAGNOSIS LUMBAR SPONDYLOSIS, LUMBOSACRAL SPONDYLOSIS PROCEDURE BILATERAL L4-L5 AND BILATERAL L5-S1 LUMBAR FACET THERAPEUTIC BLOCK SURGEON DR. CLEMENCIA WU CLOUD ADMINISTRATOR NONE ANESTHESIA LOCAL PRE PROCEDURE NOTE THE PATIENT HAS A HISTORY OF CHRONIC LOW BACK PAIN. I EVALUATED THE PATIENT AND REVIEWED THE CHART. I WENT OVER THE RISKS, ALTERNATIVES, AND BENEFITS ASSOCIATED WITH THIS PROCEDURE. I DISCUSSED THAT THE USE OF STEROIDS MAY CONTRIBUTE TO IMMUNOSUPPRESSION OF THE PATIENT'S BODY AGAINST INFECTIONS SUCH COVID-19. THE PATIENT IS AWARE OF THE POTENTIAL COMPLICATIONS ASSOCIATED WITH THIS VIRUS, INCLUDING, BUT NOT LIMITED TO, . THE PATIENT WOULD LIKE TO PROCEED AND GIVES CONSENT TO PERFORM THE PROCEDURE. THE PATIENT DENIES UNEXPLAINABLE WEIGHT LOSS, FEVER, CHILLS, OR NEW CHANGES IN URINARY OR BOWEL CONTROL. THE PATIENT IS COVID-19 NEGATIVE DESCRIPTION OF PROCEDURE THE PATIENT WAS BROUGHT TO THE PROCEDURE ROOM AND PLACED IN THE PRONE POSITION. THE LUMBOSACRAL AREA WAS CLEANED WITH CHLORAPREP SOLUTION AND DRAPED ASEPTICALLY. THE PROCEDURE WAS DONE UNDER STERILE CONDITIONS. A TIMEOUT WAS PERFORMED WHERE LATERALITY AND THE SITE OF THE PROCEDURE WERE CHECKED AND CONFIRMED WITH EVERYONE IN THE ROOM. UNDER FLUOROSCOPIC GUIDANCE, THE TARGET POINT WAS SELECTED AT THE RIGHT AND LEFT L4-L5 AND RIGHT AND LEFT L5-S1 FACET JOINTS. TARGET POINT WAS SELECTED AFTER LATERAL ROTATION AND TILT OF THE MAGNIFIER OF THE C-ARM. I CONFIRMED AGAIN WITH EVERYONE IN THE ROOM THE LATERALITY OF THE TARGET. LIDOCAINE 0.5% WAS USED TO NUMB THE SKIN AND THE SUBCUTANEOUS TISSUE BELOW IT. SPINAL NEEDLES, 22-GAUGE, WERE ADVANCED UNDER FLUOROSCOPIC GUIDANCE AND FOLLOWING PATIENT FEEDBACK UNTIL THE TARGETS WERE TOUCHED. THE POSITION OF THE NEEDLES WAS VERIFIED WITH AP AND LATERAL VIEWS. AFTER PROPER POSITION OF THE NEEDLES WAS ACHIEVED, ISOVUE-M DYE 30%, 0.1 ML, WAS INJECTED SHOWING ADEQUATE SPREAD OF THE DYE. KENALOG 20 MG WAS INJECTED AT EACH SITE. THEN, A SOLUTION OF 1.0 ML OF BUPIVACAINE 0.125% OF WAS USED TO FLUSH EACH SITE. THE MEDICATION WAS VERIFIED WITH THE NURSE. THERE WAS NO EVIDENCE OF BLOOD, PARESTHESIA OR CEREBROSPINAL FLUID DURING THE PROCEDURE. THE PATIENT WAS SENT TO THE RECOVERY ROOM. THE PATIENT WAS MOVING THE EXTREMITIES AND DOING WELL. THERE WERE NO COMPLICATIONS DURING THE PROCEDURE. ESTIMATED BLOOD LOSS WAS LESS THAN 5 ML. FLUOROSCOPY TIME WAS 35 SECONDS POST PROCEDURE NOTE DEPENDING ON THE RESULTS, WE CAN CONSIDER DOING DIAGNOSTIC FACET BLOCKS TO CONSIDER RADIOFREQUENCY. THE PATIENT WILL BE SEEN IN A FOLLOW UP IN THE NEXT FEW WEEKS. I AM LOOKING FOR LONG LASTING RELIEF FOR THE PATIENT WITH THIS INTERVENTION. INSTRUCTIONS WERE GIVEN, QUESTIONS WERE ANSWERED, AND THE PATIENT EXPRESSED UNDERSTANDING AND AGREES WITH THE PLAN. I, ROGERS DONALD, DOCUMENTED THE ABOVE INFORMATION ACTING A SCRIBE FOR DR. WU. I HAVE REVIEWED THE ABOVE DOCUMENT, WRITTEN BY ROGERS DONALD, ULTRASONIC SOLDERER, AND I VERIFY THAT IT IS ACCURATE PROCEDURE CODES 78459 INJ PARAVERT F JNT L/S 1 LEV, MODIFIERS: 50 [id number] INJ PARAVERT F JNT L/S 2 LEV, MODIFIERS: 50 DISPOSITION & COMMUNICATION FOLLOW UP FOLLOW UP WITH STEWARD/STEWARDESS (REASON: POST THERAPEUTIC BILATERAL L4-L5, L5-S1 ) ELECTRONICALLY SIGNED BY CLEMENCIA WU MD, MD ON 07/18/2020 AT 02:11 PM EST DISCLAIMER : THIS IS A VISIT SUMMARY EXTRACTED FROM THE [employer] CHART. IT IS NOT A COPY OF THE [employer] PROGRESS NOTE. NEIL
== END ==
LOC: M PAIN 14:00
PROVIDERS: ATTEND Anesthesiology
DX: M47.816 Spondylosis without myelopathy or radiculopathy, lumbar region (principal); M47.817 Spondylosis without myelopathy or radiculopathy, lumbosacral region; F43.10 Post-traumatic stress disorder, unspecified; R73.03 Prediabetes; G47.33 Obstructive sleep apnea (adult) (pediatric); F32.9 Major depressive disorder, single episode, unspecified; F41.9 Anxiety disorder, unspecified; G47.00 Insomnia, unspecified; N52.2 Drug-induced erectile dysfunction; F17.210 Nicotine dependence, cigarettes, uncomplicated; Z79.899 Other long term (current) drug therapy; Z88.8 Allergy status to other drugs, medicaments and biological substances; Z91.040 Latex allergy status; Z91.018 Allergy to other foods
CPT/HCPCS: 64493; 64494; J3301; Q9967

== ENCOUNTER → 2020-07-27 | Outpatient (CLI) | payer OTHER ==
[~2020-07-27] MED LIST changes: -BUPIVACAINE HCL 0.25% 30ML VIAL As Ordered ONE; -ISOVUE-M 300 61% 15ML VIAL As Ordered ONE; -LIDOCAINE 1% SDV 30ML VIAL As Ordered ONE; -TRIAMCINOLONE ACETONIDE SUSP 40 MG/ML VIAL (J3301) As Ordered ONE; -diazePAM 5 MG TAB As Ordered ONE; -oxyCODONE 5MG TAB As Ordered ONE
--- NOTE | 2020-08-02 09:30 | ECWPNPC ---
PATIENT NAME: AB TURNER : 1980 GENDER: MALE VISIT DATE: 07/27/2020 DISCHARGE DATE: 07/27/20 1008 VISIT LOCKED DATE TIME: PHYSICIAN: AUGUST HUTCHINS RESOURCE: AUGUST HUTCHINS REASON FOR APPOINTMENT 1. POST BILAT THERA LUMBAR FACET BLK L4-L5 L5-S1 HISTORY OF PRESENT ILLNESS FALL RISK SCREENING: SCREENING :TWO OR MORE FALLS WITHOUT INJURY IN THE PAST YEAR 40-YEAR-OLD MALE IN FOR POST BILATERAL THERAPEUTIC LUMBAR FACET BLOCK HE RATES HIS PAIN CURRENTLY AT A 4 OUT OF 10. AND DESCRIBES IT ACHING, SHARP, AND STABBING. HE FEELS THE PROCEDURE WORKED WELL OVERALL RATING HIS PAIN PREPROCEDURE AT A 7-8 OUT OF 10 AND POSTPROCEDURE AT A 3-4 OUT OF 10. PAIN SCREENING: PATIENT HAS A COMPLAINT OF ACUTE OR CHRONIC PAIN :YES LOCATION OF PAIN:LOW BACK INTENSITY OF PAIN (SCALE OF 1 TO 10):4 WHAT DOES YOUR PAIN FEEL LIKE:ACHING, SHARP, STABBING DURATION:CONTINOUS, CONSTANT, STEADY, ALL DAY PAIN IS INCREASED BY:ACTIVITIES, PROLONGED STANDING WALKING IN [place] PAIN IS DECREASED BY:USE OF PAIN MEDICATIONS, OTHERS HEAT, INJECTIONS NURSING NOTE: - -. PAIN CENTER INTAKE QUESTIONS: DO YOU HAVE A HISTORY OF MRSA? :NO DO YOU TAKE A BLOOD THINNERS? :NO DO YOU HAVE ANY BLEEDING DISORDERS? :NO ANY NEW NUMBNESS OR WEAKNESS IN YOUR LEGS OR ARMS? :NO ANY PACEMAKER,DEFIBRILLATOR, OR DORSAL COLUMN STIMULATOR? :NO DO YOU HAVE ANY RASHES OR OPEN SORES? :NO ARE YOU ALLERGIC TO IV DYE? :NO ARE YOU DIABETIC? :NO BORDERLINE ANY NEW PROBLEMS WITH YOUR MEDICATIONS? :NO HAVE YOU RECEIVED A VACCINE IN THE PAST 30 DAYS? :NO DO YOU PLAN TO RECEIVE A VACCINE IN THE NEXT 21 DAYS? :NO DO YOU NEED ANY PRESCRIPTION? :NO DO YOU TAKE ANY IMMUNOSUPPRESSIVE MEDICATIONS? :NO IS THERE A CHANCE YOU COULD BE ? :NO ARE YOU BREAST FEEDING? :NO CURRENT MEDICATIONS TAKING ZOLOFT 100 MG TABLET 1 TABLET ORALLY ONCE A DAY TAKING ARIPIPRAZOLE 20 MG TABLET 1 TABLET ORALLY ONCE A DAY TAKING HYDROXYZINE HCL 25 MG TABLET 1 TABLET NEEDED ORALLY EVERY 8 HRS TAKING SERTRALINE HCL 100 MG TABLET 2 TABLET ORALLY ONCE A DAY TAKING BUPROPION HCL ER (SR) 150 MG TABLET EXTENDED RELEASE 12 HOUR 1 TABLET IN THE MORNING ORALLY ONCE A DAY TAKING PRAZOSIN HCL 2 MG CAPSULE 4 CAPSULE AT BEDTIME ORALLY ONCE A DAY TAKING PREGABALIN 75 MG CAPSULE 1 CAPSULE ORALLY BID TAKING ALBUTEROL SULFATE HFA 108 (90 BASE) MCG/ACT AEROSOL SOLUTION 2 PUFFS NEEDED INHALATION EVERY 4 HRS TAKING CARISOPRODOL 350 MG TABLET 1 TABLET NEEDED ORALLY BID TAKING TIOTROPIUM BROMIDE MONOHYDRATE 2.5 MCG/ACT AEROSOL SOLUTION 2 PUFFS INHALATION ONCE A DAY TAKING RIBOFLAVIN 100 MG CAPSULE 2 CAPSULES ORALLY BID TAKING SILDENAFIL CITRATE 100 MG TABLET 1 TABLET NEEDED ORALLY ONCE A DAY TAKING OXYCODONE HCL 5 MG TABLET 1 TABLET NEEDED ORALLY BID MDD 2 TAKING EPINEPHRINE PF 1 MG/ML SOLUTION DIRECTED INJECTION , NOTES: NEVER TAKING MULTIVITAMIN - TABLET 1 TABLET ORALLY ONCE A DAY TAKING BUDESONIDE-FORMOTEROL FUMARATE 160-4.5 MCG/ACT AEROSOL 2 PUFFS INHALATION TWICE A DAY TAKING FAMOTIDINE 20 MG TABLET 1 TABLET AT BEDTIME NEEDED ORALLY ONCE A DAY TAKING CARBOXYMETHYLCELLULOSE SODIUM 0.5 % SOLUTION 1 DROP OPHTHALMIC TID TAKING ESZOPICLONE 2 MG TABLET 1 TABLET IMMEDIATELY BEFORE BEDTIME ORALLY ONCE A DAY TAKING MAGNESIUM OXIDE 400 MG TABLET 1 TABLET NEEDED ORALLY ONCE A DAY TAKING VITAMIN B COMPLEX - TABLET DIRECTED ORALLY DAILY TAKING PENICILLIN V POTASSIUM 250 MG TABLET 1 TABLET ORALLY QID, NOTES: JAW INFECTION NOT-TAKING NICORETTE 2 MG GUM 1 PIECE FOR 30 MINUTE NEEDED MOUTH/THROAT 24 TIME(S) A DAY MEDICATION LIST REVIEWED AND RECONCILED WITH THE PATIENT PAST MEDICAL HISTORY PTSD BORDERLINE DIABETIC TBI (2010, 2008, 2006) GANESH WITH BIPAP WITH 3 LITER BLEED IN DEPRESSION ANXIETY INSOMNIA ED (DUE TO MEDICATIONS) HYPOXIA (CO2 RETENTION) SECONDARY TO GANESH; TOXIN EXPOSURE WHILE DEPLOYED LOW BACK PAIN ALLERGIES KETOROLAC TROMETHAMINE: HIVES - ALLERGY LATEX (FOR ALLERGY USE ONLY): HIVES - ALLERGY WHEAT: HIVES - ALLERGY SURGICAL HISTORY CHEST TUBE PLACEMENT 02/1980 UMBILICAL HERNIA REPAIR 02/1980 APPENDECTOMY 2000 RIGHT INGUINAL HERNAI REPAIR 2012 GALLBLADDER REMOVED 2011 BOTTOM WISDOM TEETH REMOVED 2010 FAMILY HISTORY FATHER: 66 YRS, DIAGNOSED WITH UNSPECIFIED HEART DISEASE MOTHER: ALIVE, HYPERTENSION, DIABETES, UNSPECIFIED HEART DISEASE SIBLINGS: ALIVE SON(S): ALIVE DAUGHTER(S): ALIVE 2019 YRS 4 SONS AND 1 DAUGHTER, ALIVE AND WELL. SOCIAL HISTORY GENERAL: TOBACCO USE ARE YOU A:CURRENT SMOKER ARE YOU INTERESTED IN QUITTING?THINKING ABOUT QUITTING PREVIOUS QUIT ATTEMPTS?YES, WITHIN THE LAST 6 MONTHS. COUNSELED THE PATIENT ON SMOKING CESSATION, EDUCATION [id number]/21/2020 HOW MANY CIGARETTES A DAY DO YOU SMOKE?5 OR LESS HOW SOON AFTER YOU WAKE UP DO YOU SMOKE YOUR FIRST CIGARETTE?31-60 MIN HOW OFTEN DO YOU SMOKE CIGARETTES?EVERY DAY PATIENT COUNSELED ON THE DANGERS OF TOBACCO USE AND URGED TO QUIT:07/12/2020 LATEX QUESTIONNAIRE LATEX ALLERGY : HAVE YOU EVER DEVELOPED ANY TYPE OF REACTION AFTER HANDLING LATEX PRODUCTS SUCH RUBBER GLOVES, CONDOMS, DIAPHRAGMS, BALLOONS, SOCKS, OR UNDERWEAR?YES - PLEASE INDICATE :RUBBER GLOVES, CONDOMS LATEX ALLERGY : HAVE YOU EVER DEVELOPED ANY TYPE OF REACTION DURING OR AFTER DENTAL APPOINTMENT, VAGINAL/RECTAL EXAMINATION, SURGICAL PROCEDURE, OR ANY OTHER EXPOSURE?NO LATEX RISK : HAVE YOU EVER HAD ANY DIFFICULTY BREATHING OR HIVES AFTER EATING OR HANDLING ANY FRUITS, OR VEGETABLES; SUCH KIWI, BANANAS, STONE FRUITS, OR CHESTNUTSNO LATEX RISK : DO YOU HAVE A PREVIOUS PERSONAL HISTORY OF MORE THAN NINE SURGERIES, SPINA BIFIDA, OR REPEATED CATHERIZATIONS? NO LATEX RISK : ARE YOU FREQUENTLY EXPOSED TO LATEX PRODUCTS IN YOUR OCCUPATION?NO DATE ASKED : 07/12/2020 LATEX ALLERGY LUNG CANCER SCREENING SMOKING STATUS:CURRENT SMOKER IS THE PATIENT BETWEEN THE AGE OF 55 AND 77?NO ALCOHOL SCREENING DID YOU HAVE A DRINK CONTAINING ALCOHOL IN THE PAST YEAR?YES HOW OFTEN DID YOU HAVE SIX OR MORE DRINKS ON ONE OCCASION IN THE PAST YEAR?NEVER (0 POINTS) HOW MANY DRINKS DID YOU HAVE ON A TYPICAL DAY WHEN YOU WERE DRINKING IN THE PAST YEAR?1 OR 2 (0 POINTS) HOW OFTEN DID YOU HAVE A DRINK CONTAINING ALCOHOL IN THE PAST YEAR?MONTHLY OR LESS (1 POINT) POINTS1 INTERPRETATIONNEGATIVE RECREATIONAL DRUG USE DRUG USE?NO CAFFEINE CAFFEINE USE?YES 2-3 DAILY LANGUAGE LANGUAGES SPOKEN:ROMANIAN LEARNING BARRIERS / SPECIAL NEEDS CHANGE FROM LAST VISIT?NO BARRIERS TO LEARNING?NO HEARING IMPAIRED?YES MINOR HEARING LOSS DUE TO VISION IMPAIRED?YES :CORRECTIVE LENSES COGNITIVELY IMPAIRED?NO READINESS TO LEARN?YES LEARNING PREFERENCES?YES :HANDOUTS, DEMONSTRATION/VERBAL INSTRUCTION, OTHER (PLEASE COMMENT) HANDS ON LEARNING CAPABILITIES PRESENT?YES EMOTIONAL BARRIERS?YES COMMENTSDOCUMENTED IN NOTES SECTION> PTSD SPECIAL DEVICES?YES :CANE BENCH LOOM WEAVER NEEDED?NO DOMESTIC VIOLENCE STATUS: DO YOU FEEL SAFE IN YOUR ENVIRONMENT?YES OCCUPATION: COMBAT , 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 EXERCISE: WALKS, DAILY. MARITAL STATUS: . OTHERS AT HOME: SPOUSE, CHILDREN, MOTHER. PAIN CLINIC PFS, CLERGY, PUBLIC HEALTH REFERRALS HAS THE PATIENT BEEN EDUCATED REGARDING HIS/HER PLAN OF CARE?YES HAS THE PATIENT BEEN EDUCATED REGARDING PAIN, THE RISK FOR PAIN, THE IMPORTANCE OF EFFECTIVE PAIN MANAGEMENT, AND THE PAIN ASSESSMENT PROCESS?YES ADVANCE DIRECTIVE ADVANCE DIRECTIVE DISCUSSED WITH PATIENT:YES PT STATES HE DOES NOT HAVE ANY ADVANCED DIRECTIVES AND HE DECLINES INFORMATION ON HCP AT THIS TIME. HOSPITALIZATION/MAJOR DIAGNOSTIC PROCEDURE FOUR WEEKS VOLUNTARY ADMISSION TO [facility] 2011 REVIEW OF SYSTEMS CONSTITUTIONAL: ANY RECENT FEVER NO . CHILLS NO . WEIGHT CHANGE OF UNKNOWN REASONS NO . GASTROENTEROLOGY: NEW UNEXPLAINABLE CHANGES IN BOWEL CONTROL NO . CONSTIPATION NO . GENITOURINARY: ANY NEW CHANGE IN BLADDER CONTROL? NO . NEUROLOGY: NEW ONSET DIZZINESS OR NEUROLOGICAL CHANGES NOT MENTIONED NO . NEW NUMBNESS OR PAIN PATTERNS NOT MENTIONED AND PERTINENT TO TODAY'S VISIT NO . CARDIOLOGY: NEW CHEST PRESSURE NO . NEW CHEST PAIN NO . RESPIRATORY: UNEXPLAINABLE COUGH NO . NEW SHORTNESS OF BREATH NO . VITAL SIGNS WT 182.4 LBS, HT 60 IN, BMI 35.62 INDEX, BP 130/73 MM HG, HR 85 /MIN, RR 18 /MIN, TEMP 97.7 F, OXYGEN SAT % 97%, SAFE IN ENV? (Y/N) Y, NA INITIALS LA 09:41, REVIEWED BY: JSJ. CLAUS RN. EXAMINATION GENERAL EXAMINATION: GENERALNO ACUTE DISTRESS, WELL NOURISHED AND HYDRATED. PSYCHAPPROPRIATE MOOD AND AFFECT . LUNGS:CLEAR TO AUSCULTATION BILATERALLY, NO WHEEZES, RHONCHI, RALES. HEART:NO MURMURS, REGULAR RATE AND RHYTHM. ASSESSMENTS OTHER CHRONIC PAIN - G89.29 (PRIMARY) SPONDYLOSIS WITHOUT MYELOPATHY OR RADICULOPATHY, LUMBOSACRAL REGION - M47.817 TREATMENT OTHER CHRONIC PAIN PAIN PROCEDURE LOGDATE OF [id number]/11/20PROCEDURE:BILATERAL LUMBAR L4-5, L5-S1 FACET BLOCK THERAPEUTICAMOUNT OF PRE SEDATEVALIUM 10 MG & OXYCODONE 10 MG NOTES: 40-YEAR-OLD MALE IN FOR POST LUMBAR FACET BLOCK FOLLOW-UP. GIVEN PRESENTING SYMPTOMS RECOMMEND FOLLOW-UP IN 2 MONTHS. PATIENT HAS EXPRESSED UNDERSTANDING OF AND WAS IN AGREEMENT WITH TREATMENT PLAN. GIVEN TIME TO ASK QUESTIONS AND EXPRESS CONCERNS. PROCEDURE CODES FA211 ESTABILISHED PATIENT [facility] CHARGE DISPOSITION & COMMUNICATION FOLLOW UP 2 MONTHS (REASON: BACK PAIN) ELECTRONICALLY SIGNED BY REDDY RAE ON 08/01/2020 AT 08:34 AM EST DISCLAIMER : THIS IS A VISIT SUMMARY EXTRACTED FROM THE [employer] CHART. IT IS NOT A COPY OF THE [employer] PROGRESS NOTE. MTDD
== END ==
LOC: M PAIN 09:30
PROVIDERS: ATTEND Family Medicine
DX: G89.29 Other chronic pain (principal); M47.817 Spondylosis without myelopathy or radiculopathy, lumbosacral region; F43.10 Post-traumatic stress disorder, unspecified; R73.03 Prediabetes; G47.33 Obstructive sleep apnea (adult) (pediatric); F32.9 Major depressive disorder, single episode, unspecified; F41.9 Anxiety disorder, unspecified; G47.00 Insomnia, unspecified; N52.2 Drug-induced erectile dysfunction; F17.210 Nicotine dependence, cigarettes, uncomplicated; Z79.891 Long term (current) use of opiate analgesic; Z79.899 Other long term (current) drug therapy; Z88.8 Allergy status to other drugs, medicaments and biological substances; Z91.040 Latex allergy status; Z91.018 Allergy to other foods

== ENCOUNTER → 2020-09-26 | Outpatient (CLI) | payer OTHER ==
--- NOTE | 2020-09-28 04:11 | ECWPNPC ---
PATIENT NAME: AB TURNER : 1980 GENDER: MALE VISIT DATE: 09/26/2020 DISCHARGE DATE: 09/26/20 1019 VISIT LOCKED DATE TIME: PHYSICIAN: AUGUST HUTCHINS RESOURCE: AUGUST HUTCHINS REASON FOR APPOINTMENT 1. 2 MONTHS-BACK PAIN HISTORY OF PRESENT ILLNESS DEPRESSION SCREENIN-YEAR-OLD MALE IN FOR CHRONIC PAIN FOLLOW-UP. HE RATES HIS PAIN CURRENTLY AT A 7 OUT OF 10 AND DESCRIBES IT SHARP, AND STABBING. PATIENT HAS HAD BILATERAL THERAPEUTIC LUMBAR FACET BLOCKS IN THE PAST WITH GOOD RELIEF AND WE WILL DISCUSS REPEAT PROCEDURES TODAY. PHQ-9 LITTLE INTEREST OR PLEASURE IN DOING THINGSNEARLY EVERY DAY FEELING DOWN, DEPRESSED, OR HOPELESSMORE THAN HALF THE DAYS TROUBLE FALLING OR STAYING ASLEEP, OR SLEEPING TOO MUCHNEARLY EVERY DAY FEELING TIRED OR HAVING LITTLE ENERGYMORE THAN HALF THE DAYS POOR APPETITE OR OVEREATING NOT AT ALL FEELING BAD ABOUT YOURSELF-OR THAT YOU ARE A FAILURE OR HAVE LET YOURSELF OR YOUR FAMILY DOWN MORE THAN HALF THE DAYS TROUBLE CONCENTRATING ON THINGS, SUCH READING THE NEWSPAPER OR WATCHING TELEVISION MORE THAN HALF THE DAYS MOVING OR SPEAKING SO SLOWLY THAT OTHER PEOPLE COULD HAVE NOTICED. OR THE OPPOSITE- BEING SO FIDGETY OR RESTLESS THAT YOU HAVE BEEN MOVING AROUND A LOT MORE THAN USUALNOT AT ALL THOUGHTS THAT YOU WOULD BE BETTER OFF , OR OF HURTING YOURSELF IN SOME WAY?NOT AT ALL TOTAL SCORE:14 INTERPRETATIONMODERATE DEPRESSION PHQ-2 (2015 EDITION) LITTLE INTEREST OR PLEASURE IN DOING THINGS?NEARLY EVERY DAY FEELING DOWN, DEPRESSED, OR HOPELESS?MORE THAN HALF THE DAYS TOTAL SCORE5 GENERAL: -. FALL RISK SCREENING: SCREENING :ONE FALL WITH INJURY IN THE PAST YEAR WENT TO ER AND GOT SEND HOME PAIN SCREENING: PATIENT HAS A COMPLAINT OF ACUTE OR CHRONIC PAIN :YES LOCATION OF PAIN:LOW BACK INTENSITY OF PAIN (SCALE OF 1 TO 10):7 WHAT DOES YOUR PAIN FEEL LIKE:SHARP, STABBING DURATION:CONTINOUS, CONSTANT, ALL DAY PAIN IS INCREASED BY:ACTIVITIES LIFTING AND CLIMBING THE STAIRS PAIN IS DECREASED BY:USE OF PAIN MEDICATIONS TREATMENT/MEDICATIONS USED TO MANAGE PAIN:OPIOIDS LEVEL OF RELIEF FROM PAIN TREATMENTS IN THE PAST:50% PAIN HAS INTERFERED WITH THE FOLLOWING:BATHING/DRESSING, WALKING ABILITY NURSING NOTE: -. PAIN CENTER INTAKE QUESTIONS: DO YOU HAVE A HISTORY OF MRSA? :NO DO YOU TAKE A BLOOD THINNERS? :NO DO YOU HAVE ANY BLEEDING DISORDERS? :NO ANY NEW NUMBNESS OR WEAKNESS IN YOUR LEGS OR ARMS? :NO ANY PACEMAKER,DEFIBRILLATOR, OR DORSAL COLUMN STIMULATOR? :NO DO YOU HAVE ANY RASHES OR OPEN SORES? :NO ARE YOU ALLERGIC TO IV DYE? :NO ARE YOU DIABETIC? :NO BORDERLINE ANY NEW PROBLEMS WITH YOUR MEDICATIONS? :NO HAVE YOU RECEIVED A VACCINE IN THE PAST 30 DAYS? :NO DO YOU PLAN TO RECEIVE A VACCINE IN THE NEXT 21 DAYS? :NO DO YOU NEED ANY PRESCRIPTION? :NO DO YOU TAKE ANY IMMUNOSUPPRESSIVE MEDICATIONS? :NO IS THERE A CHANCE YOU COULD BE ? :NO ARE YOU BREAST FEEDING? :NO CURRENT MEDICATIONS TAKING ZOLOFT 100 MG TABLET 1 TABLET ORALLY ONCE A DAY TAKING ARIPIPRAZOLE 20 MG TABLET 1 TABLET ORALLY ONCE A DAY TAKING HYDROXYZINE HCL 25 MG TABLET 1 TABLET NEEDED ORALLY EVERY 8 HRS TAKING SERTRALINE HCL 100 MG TABLET 2 TABLET ORALLY ONCE A DAY TAKING BUPROPION HCL ER (SR) 150 MG TABLET EXTENDED RELEASE 12 HOUR 1 TABLET IN THE MORNING ORALLY ONCE A DAY TAKING PRAZOSIN HCL 2 MG CAPSULE 4 CAPSULE AT BEDTIME ORALLY ONCE A DAY TAKING PREGABALIN 75 MG CAPSULE 1 CAPSULE ORALLY BID TAKING ALBUTEROL SULFATE HFA 108 (90 BASE) MCG/ACT AEROSOL SOLUTION 2 PUFFS NEEDED INHALATION EVERY 4 HRS TAKING CARISOPRODOL 350 MG TABLET 1 TABLET NEEDED ORALLY BID TAKING TIOTROPIUM BROMIDE MONOHYDRATE 2.5 MCG/ACT AEROSOL SOLUTION 2 PUFFS INHALATION ONCE A DAY TAKING RIBOFLAVIN 100 MG CAPSULE 2 CAPSULES ORALLY BID TAKING SILDENAFIL CITRATE 100 MG TABLET 1 TABLET NEEDED ORALLY ONCE A DAY TAKING OXYCODONE HCL 5 MG TABLET 1 TABLET NEEDED ORALLY BID MDD 2 TAKING EPINEPHRINE PF 1 MG/ML SOLUTION DIRECTED INJECTION TAKING MULTIVITAMIN - TABLET 1 TABLET ORALLY ONCE A DAY TAKING BUDESONIDE-FORMOTEROL FUMARATE 160-4.5 MCG/ACT AEROSOL 2 PUFFS INHALATION TWICE A DAY TAKING FAMOTIDINE 20 MG TABLET 1 TABLET AT BEDTIME NEEDED ORALLY ONCE A DAY TAKING CARBOXYMETHYLCELLULOSE SODIUM 0.5 % SOLUTION 1 DROP OPHTHALMIC TID TAKING ESZOPICLONE 2 MG TABLET 1 TABLET IMMEDIATELY BEFORE BEDTIME ORALLY ONCE A DAY TAKING MAGNESIUM OXIDE 400 MG TABLET 1 TABLET NEEDED ORALLY ONCE A DAY TAKING VITAMIN B COMPLEX - TABLET DIRECTED ORALLY DAILY TAKING PENICILLIN V POTASSIUM 250 MG TABLET 1 TABLET ORALLY QID TAKING NICORETTE 2 MG GUM 1 PIECE FOR 30 MINUTE NEEDED MOUTH/THROAT 24 TIME(S) A DAY MEDICATION LIST REVIEWED AND RECONCILED WITH THE PATIENT ALLERGIES NO[ALLERGIES VERIFIED] SOCIAL HISTORY GENERAL: TOBACCO USE ARE YOU A:CURRENT SMOKER ARE YOU INTERESTED IN QUITTING?THINKING ABOUT QUITTING PREVIOUS QUIT ATTEMPTS?YES, WITHIN THE LAST 6 MONTHS. COUNSELED THE PATIENT ON SMOKING CESSATION, EDUCATION [id number]/25/2021 HOW MANY CIGARETTES A DAY DO YOU SMOKE?5 OR LESS HOW SOON AFTER YOU WAKE UP DO YOU SMOKE YOUR FIRST CIGARETTE?31-60 MIN HOW OFTEN DO YOU SMOKE CIGARETTES?EVERY DAY PATIENT COUNSELED ON THE DANGERS OF TOBACCO USE AND URGED TO QUIT:07/12/2020 LATEX QUESTIONNAIRE LATEX ALLERGY : HAVE YOU EVER DEVELOPED ANY TYPE OF REACTION AFTER HANDLING LATEX PRODUCTS SUCH RUBBER GLOVES, CONDOMS, DIAPHRAGMS, BALLOONS, SOCKS, OR UNDERWEAR?YES - PLEASE INDICATE :RUBBER GLOVES, CONDOMS LATEX ALLERGY : HAVE YOU EVER DEVELOPED ANY TYPE OF REACTION DURING OR AFTER DENTAL APPOINTMENT, VAGINAL/RECTAL EXAMINATION, SURGICAL PROCEDURE, OR ANY OTHER EXPOSURE?NO LATEX RISK : HAVE YOU EVER HAD ANY DIFFICULTY BREATHING OR HIVES AFTER EATING OR HANDLING ANY FRUITS, OR VEGETABLES; SUCH KIWI, BANANAS, STONE FRUITS, OR CHESTNUTSNO LATEX RISK : DO YOU HAVE A PREVIOUS PERSONAL HISTORY OF MORE THAN NINE SURGERIES, SPINA BIFIDA, OR REPEATED CATHERIZATIONS? NO LATEX RISK : ARE YOU FREQUENTLY EXPOSED TO LATEX PRODUCTS IN YOUR OCCUPATION?NO DATE ASKED : 09/26/2020 LATEX ALLERGY, AND TTARDOL LUNG CANCER SCREENING SMOKING STATUS:CURRENT SMOKER IS THE PATIENT BETWEEN THE AGE OF 55 AND 77?NO ALCOHOL SCREENING DID YOU HAVE A DRINK CONTAINING ALCOHOL IN THE PAST YEAR?YES HOW OFTEN DID YOU HAVE SIX OR MORE DRINKS ON ONE OCCASION IN THE PAST YEAR?NEVER (0 POINTS) HOW MANY DRINKS DID YOU HAVE ON A TYPICAL DAY WHEN YOU WERE DRINKING IN THE PAST YEAR?1 OR 2 (0 POINTS) HOW OFTEN DID YOU HAVE A DRINK CONTAINING ALCOHOL IN THE PAST YEAR?MONTHLY OR LESS (1 POINT) POINTS1 INTERPRETATIONNEGATIVE RECREATIONAL DRUG USE DRUG USE?NO CAFFEINE CAFFEINE USE?YES 2-3 DAILY LANGUAGE LANGUAGES SPOKEN:CENTRAL AFRICAN LEARNING BARRIERS / SPECIAL NEEDS CHANGE FROM LAST VISIT?NO BARRIERS TO LEARNING?NO HEARING IMPAIRED?YES MINOR HEARING LOSS DUE TO VISION IMPAIRED?YES :CORRECTIVE LENSES COGNITIVELY IMPAIRED?NO READINESS TO LEARN?YES LEARNING PREFERENCES?YES :HANDOUTS, DEMONSTRATION/VERBAL INSTRUCTION, OTHER (PLEASE COMMENT) HANDS ON LEARNING CAPABILITIES PRESENT?YES EMOTIONAL BARRIERS?YES COMMENTSDOCUMENTED IN NOTES SECTION> PTSD SPECIAL DEVICES?YES :CANE MODELING ANALYST NEEDED?NO DOMESTIC VIOLENCE STATUS: DO YOU FEEL SAFE IN YOUR ENVIRONMENT?YES OCCUPATION: COMBAT , 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 EXERCISE: WALKS, DAILY. MARITAL STATUS: . OTHERS AT HOME: SPOUSE, CHILDREN, MOTHER. - HAS THE PATIENT BEEN EDUCATED REGARDING HIS/HER PLAN OF CARE?YES HAS THE PATIENT BEEN EDUCATED REGARDING PAIN, THE RISK FOR PAIN, THE IMPORTANCE OF EFFECTIVE PAIN MANAGEMENT, AND THE PAIN ASSESSMENT PROCESS?YES ADVANCE DIRECTIVE ADVANCE DIRECTIVE DISCUSSED WITH PATIENT:YES PT STATES HE DOES NOT HAVE ANY ADVANCED DIRECTIVES AND HE DECLINES INFORMATION ON HCP AT THIS TIME. REVIEW OF SYSTEMS CONSTITUTIONAL: ANY RECENT FEVER NO . CHILLS NO . WEIGHT CHANGE OF UNKNOWN REASONS NO . GASTROENTEROLOGY: NEW UNEXPLAINABLE CHANGES IN BOWEL CONTROL NO . CONSTIPATION NO . GENITOURINARY: ANY NEW CHANGE IN BLADDER CONTROL? NO . NEUROLOGY: NEW ONSET DIZZINESS OR NEUROLOGICAL CHANGES NOT MENTIONED NO . NEW NUMBNESS OR PAIN PATTERNS NOT MENTIONED AND PERTINENT TO TODAY'S VISIT NO . CARDIOLOGY: NEW CHEST PRESSURE NO . NEW CHEST PAIN NO . RESPIRATORY: UNEXPLAINABLE COUGH NO . NEW SHORTNESS OF BREATH NO . VITAL SIGNS WT 189 LBS, HT 60 IN, BMI 36.91 INDEX, BP 121/65 MM HG, HR 85 /MIN, RR 18 /MIN, TEMP 98.1 F, OXYGEN SAT % 97, SAFE IN ENV? (Y/N) YEST.JYOTSNA ARITA. EXAMINATION GENERAL EXAMINATION: GENERALNO ACUTE DISTRESS, WELL NOURISHED AND HYDRATED. PSYCHAPPROPRIATE MOOD AND AFFECT . LUNGS:CLEAR TO AUSCULTATION BILATERALLY, NO WHEEZES, RHONCHI, RALES. HEART:NO MURMURS, REGULAR RATE AND RHYTHM. BACK:POINT TENDER L4-L5 RIGHT SIDE, STARTING SKIN SHOWS NO ERYTHEMA, ECCHYMOSIS, INCREASED WARMTH, AND/OR SKIN ERUPTIONS NOTED. PATIENT DOES ENDORSE INCREASED PAIN WITH FACET LOADING. . ASSESSMENTS OTHER CHRONIC PAIN - G89.29 (PRIMARY) SPONDYLOSIS WITHOUT MYELOPATHY OR RADICULOPATHY, LUMBOSACRAL REGION - M47.817, RISK: (NULL) TREATMENT OTHER CHRONIC PAIN PAIN PROCEDURE LOGRESULT:PRE-7-8/10 POST NOTES: 40-YEAR-OLD MALE IN FOR CHRONIC PAIN FOLLOW-UP. GIVEN PRESENTING SYMPTOMS AND RESULTS OF PHYSICAL EXAMINATION RECOMMEND BILATERAL THERAPEUTIC LUMBAR FACET BLOCK L4-L5 L5-S1 WITH POST PROCEDURAL FOLLOW-UP. PATIENT HAS EXPRESSED UNDERSTANDING OF AND WAS IN AGREEMENT WITH TREATMENT PLAN. GIVEN TIME TO ASK QUESTIONS AND EXPRESS CONCERNS. PROCEDURE CODES FA211 ESTABILISHED PATIENT NEW [facility] CHARGE DISPOSITION & COMMUNICATION FOLLOW UP POST PROCEDURE (REASON: BILATERAL LUMBAR FACET BLOCK L4-L5,L5-S1) ELECTRONICALLY SIGNED BY REDDY RAE ON 09/27/2020 AT 12:54 PM EST DISCLAIMER : THIS IS A VISIT SUMMARY EXTRACTED FROM THE AIT CHART. IT IS NOT A COPY OF THE AIT PROGRESS NOTE. NEIL
== END ==
LOC: M PAIN 09:45
PROVIDERS: ATTEND Family Medicine
DX: G89.29 Other chronic pain (principal); M47.817 Spondylosis without myelopathy or radiculopathy, lumbosacral region; F17.210 Nicotine dependence, cigarettes, uncomplicated; Z79.891 Long term (current) use of opiate analgesic

== ENCOUNTER → 2020-10-21 | Outpatient (CLI) | payer OTHER | LOC: M LABSMTC 10:20 | PROVIDERS: ATTEND Anesthesiology | DX: Z20.822 Contact with and (suspected) exposure to COVID-19 (principal) ==

== ENCOUNTER → 2020-10-26 | Outpatient (CLI) | payer OTHER ==
[~2020-10-26] MED LIST changes: +BUPIVACAINE HCL 0.25% 30ML VIAL As Ordered ONE; +ISOVUE-M 300 61% 15ML VIAL As Ordered ONE; +LIDOCAINE 1% SDV 30ML VIAL As Ordered ONE; +TRIAMCINOLONE ACETONIDE SUSP 40 MG/ML VIAL (J3301) As Ordered ONE; +diazePAM 5MG TABLET As Ordered ONE; +diphenhydrAMINE 25MG CAP As Ordered ONE; +oxyCODONE 5MG TAB As Ordered ONE
--- NOTE | 2020-10-26 12:01 | REP ---
INDICATION: BILATERAL LUMBAR THERAPEUTIC FACET BLOCK. COMPARISON: 07/13/2020. TECHNIQUE: Two C-arm views lower lumbar spine performed. FINDINGS: Gifford are seen along the lower lumbar facet joints bilaterally. A small amount of contrast is injected. IMPRESSION: 40 seconds fluoroscopy time utilized. <Electronically signed by Khurram Givens > 10/26/20 1157
--- NOTE | 2020-10-28 00:09 | ECWPNPC ---
PATIENT NAME: AB TURNER : 1980 GENDER: MALE VISIT DATE: 10/26/2020 DISCHARGE DATE: 10/26/20 1139 VISIT LOCKED DATE TIME: PHYSICIAN: CLEMENCIA WU MD RESOURCE: CLEMENCIA WU MD REASON FOR APPOINTMENT 1. BILATERAL THERAPEUTIC LUMBAR FACET BLOCK L4-L5,L5-S1 HISTORY OF PRESENT ILLNESS GENERAL: -. FALL RISK SCREENING: SCREENING :TWO OR MORE FALLS WITHOUT INJURY IN THE PAST YEAR STATES HE FALLS FREQUENTLY-HIS KNEES GIVE OUT CAUSING HIM TO FALL PAIN SCREENING: PATIENT HAS A COMPLAINT OF ACUTE OR CHRONIC PAIN :YES LOCATION OF PAIN:NECK, BOTH SHOULDERS, UPPER BACK, MID BACK, LOW BACK, LEG(S), KNEES INTENSITY OF PAIN (SCALE OF 1 TO 10):8 AVERAGE 7-8 WHAT DOES YOUR PAIN FEEL LIKE:ACHING, BURNING, CONTINOUS, SHARP, THROBBING, SORE DURATION:CONTINOUS, CONSTANT PAIN IS INCREASED BY:ACTIVITIES, OTHERS PROLONGED SITTING PAIN IS DECREASED BY:USE OF PAIN MEDICATIONS, OTHERS HEAT, SLEEP PAIN HAS INTERFERED WITH THE FOLLOWING: EVERYTHING NURSING NOTE: -. PAIN CENTER INTAKE QUESTIONS: DO YOU HAVE A HISTORY OF MRSA? :NO DO YOU TAKE A BLOOD THINNERS? :NO DO YOU HAVE ANY BLEEDING DISORDERS? :NO ANY NEW NUMBNESS OR WEAKNESS IN YOUR LEGS OR ARMS? :NO ANY PACEMAKER,DEFIBRILLATOR, OR DORSAL COLUMN STIMULATOR? :NO DO YOU HAVE ANY RASHES OR OPEN SORES? :NO ARE YOU ALLERGIC TO IV DYE? :NO ARE YOU DIABETIC? :YES BORDERLINE, WILL CK FSBS PRIOR TO COMING IN FOR HIS APPOINTMENT ANY NEW PROBLEMS WITH YOUR MEDICATIONS? :NO HAVE YOU RECEIVED A VACCINE IN THE PAST 30 DAYS? :NO DO YOU PLAN TO RECEIVE A VACCINE IN THE NEXT 21 DAYS? :YES IF SO WHAT VACCINE AND WHEN? COVID 1ST INJECTION 11/05/20 DISCUSSED WAITING AT LEAST 2 WEEKS AFTER THE PROCEDURE DUE TO THE STEROID DO YOU TAKE ANY IMMUNOSUPPRESSIVE MEDICATIONS? :NO ANY HISTORY OF SEIZURES? :NO ANY HISTORY OF CARDIAC ISSUES OR EVENTS? :NO DO YOU HAVE SLEEP APNEA? :YES DO YOU WEAR A CPAP? BYPAP WITH 3L O2 BLED IN ANY RECENT HEAD INJURY? :NO DO YOU HAVE ANY NEW INFECTIONS? :NO IS THERE A CHANCE YOU COULD BE ? :NO ARE YOU BREAST FEEDING? :NO WHEN DID YOU LAST EAT? : 10/25/2020 1800 WHEN DID YOU LAST DRINK? : 10/26/2020 0530 WHAT DID YOU LAST DRINK? : COFFEE NAME OF PERSON DRIVING YOU HOME? : ABBIE-MOTHER DO YOU HAVE ANY OTHER QUESTIONS OR CONCERNS? : NONE CURRENT MEDICATIONS TAKING ZOLOFT 100 MG TABLET 1 TABLET ORALLY ONCE A DAY TAKING ARIPIPRAZOLE 20 MG TABLET 1 TABLET ORALLY ONCE A DAY TAKING HYDROXYZINE HCL 25 MG TABLET 1 TABLET NEEDED ORALLY EVERY 8 HRS TAKING SERTRALINE HCL 100 MG TABLET 2 TABLET ORALLY ONCE A DAY TAKING BUPROPION HCL ER (SR) 150 MG TABLET EXTENDED RELEASE 12 HOUR 1 TABLET IN THE MORNING ORALLY ONCE A DAY TAKING PRAZOSIN HCL 2 MG CAPSULE 4 CAPSULE AT BEDTIME ORALLY ONCE A DAY TAKING PREGABALIN 75 MG CAPSULE 1 CAPSULE ORALLY BID TAKING ALBUTEROL SULFATE HFA 108 (90 BASE) MCG/ACT AEROSOL SOLUTION 2 PUFFS NEEDED INHALATION EVERY 4 HRS TAKING CARISOPRODOL 350 MG TABLET 1 TABLET NEEDED ORALLY BID, NOTES: 10/25/20202199 TAKING TIOTROPIUM BROMIDE MONOHYDRATE 2.5 MCG/ACT AEROSOL SOLUTION 2 PUFFS INHALATION ONCE A DAY TAKING RIBOFLAVIN 100 MG CAPSULE 2 CAPSULES ORALLY BID TAKING SILDENAFIL CITRATE 100 MG TABLET 1 TABLET NEEDED ORALLY ONCE A DAY TAKING OXYCODONE HCL 5 MG TABLET 1 TABLET NEEDED ORALLY BID MDD 2, NOTES: 10/25/20202199 TAKING EPINEPHRINE PF 1 MG/ML SOLUTION DIRECTED INJECTION TAKING MULTIVITAMIN - TABLET 1 TABLET ORALLY ONCE A DAY TAKING BUDESONIDE-FORMOTEROL FUMARATE 160-4.5 MCG/ACT AEROSOL 2 PUFFS INHALATION TWICE A DAY TAKING FAMOTIDINE 20 MG TABLET 1 TABLET AT BEDTIME NEEDED ORALLY ONCE A DAY TAKING ESZOPICLONE 2 MG TABLET 1 TABLET IMMEDIATELY BEFORE BEDTIME ORALLY ONCE A DAY TAKING MAGNESIUM OXIDE 400 MG TABLET 1 TABLET NEEDED ORALLY ONCE A DAY TAKING VITAMIN B COMPLEX - TABLET DIRECTED ORALLY DAILY NOT-TAKING CARBOXYMETHYLCELLULOSE SODIUM 0.5 % SOLUTION 1 DROP OPHTHALMIC TID NOT-TAKING PENICILLIN V POTASSIUM 250 MG TABLET 1 TABLET ORALLY QID NOT-TAKING NICORETTE 2 MG GUM 1 PIECE FOR 30 MINUTE NEEDED MOUTH/THROAT 24 TIME(S) A DAY MEDICATION LIST REVIEWED AND RECONCILED WITH THE PATIENT PAST MEDICAL HISTORY PTSD BORDERLINE DIABETIC TBI (2010, 2008, 2006) GANESH WITH BIPAP WITH 3 LITER BLEED IN DEPRESSION ANXIETY INSOMNIA ED (DUE TO MEDICATIONS) HYPOXIA (CO2 RETENTION) SECONDARY TO GANESH; TOXIN EXPOSURE WHILE DEPLOYED LOW BACK PAIN ALLERGIES KETOROLAC TROMETHAMINE: HIVES - ALLERGY LATEX (FOR ALLERGY USE ONLY): HIVES - ALLERGY WHEAT: HIVES - ALLERGY SOCIAL HISTORY GENERAL: TOBACCO USE ARE YOU A:CURRENT SMOKER ARE YOU INTERESTED IN QUITTING?NOT READY TO QUIT HOW MANY CIGARETTES A DAY DO YOU SMOKE?5 OR LESS HOW SOON AFTER YOU WAKE UP DO YOU SMOKE YOUR FIRST CIGARETTE?31-60 MIN HOW OFTEN DO YOU SMOKE CIGARETTES?EVERY DAY PATIENT COUNSELED ON THE DANGERS OF TOBACCO USE AND URGED TO QUIT:10/25/2020 LATEX QUESTIONNAIRE LATEX ALLERGY : HAVE YOU EVER DEVELOPED ANY TYPE OF REACTION AFTER HANDLING LATEX PRODUCTS SUCH RUBBER GLOVES, CONDOMS, DIAPHRAGMS, BALLOONS, SOCKS, OR UNDERWEAR?YES LATEX ALLERGY : HAVE YOU EVER DEVELOPED ANY TYPE OF REACTION DURING OR AFTER DENTAL APPOINTMENT, VAGINAL/RECTAL EXAMINATION, SURGICAL PROCEDURE, OR ANY OTHER EXPOSURE?NO - PLEASE INDICATE :RUBBER GLOVES, CONDOMS DATE ASKED : 09/26/2020 LATEX ALLERGY, AND TTARDOL LATEX RISK : HAVE YOU EVER HAD ANY DIFFICULTY BREATHING OR HIVES AFTER EATING OR HANDLING ANY FRUITS, OR VEGETABLES; SUCH KIWI, BANANAS, STONE FRUITS, OR CHESTNUTSNO LATEX RISK : DO YOU HAVE A PREVIOUS PERSONAL HISTORY OF MORE THAN NINE SURGERIES, SPINA BIFIDA, OR REPEATED CATHERIZATIONS? NO LATEX RISK : ARE YOU FREQUENTLY EXPOSED TO LATEX PRODUCTS IN YOUR OCCUPATION?NO LUNG CANCER SCREENING SMOKING STATUS:CURRENT SMOKER IS THE PATIENT BETWEEN THE AGE OF 55 AND 77?NO ALCOHOL SCREENING DID YOU HAVE A DRINK CONTAINING ALCOHOL IN THE PAST YEAR?YES HOW OFTEN DID YOU HAVE SIX OR MORE DRINKS ON ONE OCCASION IN THE PAST YEAR?NEVER (0 POINTS) HOW MANY DRINKS DID YOU HAVE ON A TYPICAL DAY WHEN YOU WERE DRINKING IN THE PAST YEAR?1 OR 2 (0 POINTS) HOW OFTEN DID YOU HAVE A DRINK CONTAINING ALCOHOL IN THE PAST YEAR?MONTHLY OR LESS (1 POINT) POINTS1 INTERPRETATIONNEGATIVE RECREATIONAL DRUG USE DRUG USE?NO CAFFEINE CAFFEINE USE?YES 2-3 DAILY LANGUAGE LANGUAGES SPOKEN:BULGARIAN LEARNING BARRIERS / SPECIAL NEEDS CHANGE FROM LAST VISIT?NO BARRIERS TO LEARNING?NO HEARING IMPAIRED?YES MINOR HEARING LOSS DUE TO VISION IMPAIRED?YES :CORRECTIVE LENSES COGNITIVELY IMPAIRED?NO READINESS TO LEARN?YES LEARNING PREFERENCES?YES :HANDOUTS, DEMONSTRATION/VERBAL INSTRUCTION, OTHER (PLEASE COMMENT) HANDS ON LEARNING CAPABILITIES PRESENT?YES EMOTIONAL BARRIERS?YES COMMENTSDOCUMENTED IN NOTES SECTION> PTSD SPECIAL DEVICES?YES :CANE ACCOUNTANT BUDGET NEEDED?NO DOMESTIC VIOLENCE STATUS: DO YOU FEEL SAFE IN YOUR ENVIRONMENT?YES OCCUPATION: COMBAT , 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 EXERCISE: WALKS, DAILY. MARITAL STATUS: . OTHERS AT HOME: SPOUSE, CHILDREN, MOTHER. - HAS THE PATIENT BEEN EDUCATED REGARDING HIS/HER PLAN OF CARE?YES HAS THE PATIENT BEEN EDUCATED REGARDING PAIN, THE RISK FOR PAIN, THE IMPORTANCE OF EFFECTIVE PAIN MANAGEMENT, AND THE PAIN ASSESSMENT PROCESS?YES ADVANCE DIRECTIVE ADVANCE DIRECTIVE DISCUSSED WITH PATIENT:YES PT STATES HE DOES NOT HAVE ANY ADVANCED DIRECTIVES AND HE DECLINES INFORMATION ON HCP AT THIS TIME. VITAL SIGNS WT 193.6 LBS, HT 60 IN, BMI 37.81 INDEX, BP 134/77 MM HG, HR 93 /MIN, RR 18 /MIN, TEMP 97.3 F, OXYGEN SAT % 93%, BLOOD GLUCOSE LEVEL 92, SAFE IN ENV? (Y/N) YES, NA INITIALS AW 1014, REVIEWED BY: Vikash LEA RN. EXAMINATION GENERAL EXAMINATION: THE PATIENT IS ALERT, ORIENTED TIMES THREE AND COOPERATIVE. LUNGS ARE CLEAR TO AUSCULTATION. HEART SHOWS REGULAR RHYTHM, NO MURMURS AND NO GALLOPS. ASSESSMENTS SPONDYLOSIS WITHOUT MYELOPATHY OR RADICULOPATHY, LUMBAR REGION - M47.816 (PRIMARY) SPONDYLOSIS OF LUMBOSACRAL REGION WITHOUT MYELOPATHY OR RADICULOPATHY - M47.817 TREATMENT SPONDYLOSIS WITHOUT MYELOPATHY OR RADICULOPATHY, LUMBAR REGION [facility] FACET BLOCK (PAIN)[id number] MEDICATION: VALIUM TAB 10MG ORALLY (DIAZEPAM)CAROL ANN ELLINGTON 10/26/2020 10:38:14 AM > VERIFIED LUCAS SYLVESTER 10/26/2020 10:42:34 AM > ADMINISTERED MEDICATION: OXYCODONE HCL TAB 10MG ORALLYCAROL ANN ELLINGTON 10/26/2020 10:38:29 AM > VERIFIED LUCAS SYLVESTER 10/26/2020 10:42:56 AM > ADMINISTERED COMPLETION OF PROCEDURAL VISIT WHEN MEETS CRITERIALUCAS SYLVESTER 10/26/2020 11:40:40 AM > CRITERIA MET MED: PAIN BENADRYL TAB 25MG ORALLY DIPHENHYDRAMINECAROL ANN ELLINGTON 10/26/2020 10:38:40 AM > VERIFIED LUCAS SYLVESTER 10/26/2020 10:43:14 AM > ADMINISTERED OTHERS NOTES: 10/25/20 1823 PRE-PROCEDURE CALL COMPLETED. PT. DENIES CHANGES IN SURGICAL, HOSPITALIZATION OR FAMILY MEDICAL HISTORY. Dorota LERMA RN. PROCEDURES PAIN NURSING RECORD PROCEDURE IN ROOM 1056, PHYSICIAN IN ROOM 1107, START 1112, FINISH 1117, PHYSICIAN OUT OF ROOM 1118, OUT OF ROOM 1125, ECG NORMAL SINUS, PATIENT SHIELDED YES, SAFETY STRAP YES, PREP CHLOROPREP BY Vikash LEA RN, DRESSING TEGADERM BY DR WU LOC: LUCAS SYLVESTER 10/26/2020 11:06:09 AM > , 1. ALERT, ORIENTED RESP: LUCAS SYLVESTER 10/26/2020 11:06:13 AM > , 1. REGULAR, NO DYSPNEA COLOR: LUCAS SYLVESTER 10/26/2020 11:06:16 AM > , 1. PINK SKIN: LUCAS SYLVESTER 10/26/2020 11:06:20 AM > , 1. WARM, DRY POSITION: LUCAS SYLVESTER 10/26/2020 11:06:23 AM > , 1. PRONE VITALS: LUCAS SYLVESTER 10/26/2020 11:06:26 AM > 128/72-90-18-96% , LUCAS SYLVESTER 10/26/2020 11:15:13 AM > 127/62-87-18-97% , LUCAS SYLVESTER 10/26/2020 11:38:49 AM > 142/86-94-18-96% NOTES Justo LEA RN COMPLETION OF PROCEDURE APPOINTMENT: POST PAIN 4 BILATERAL LOW BACK, DRESSING SITE NO DRESSING BILATERAL LOW BACK, IV N/A, GAIT STEADY, TEACHING COMPLETED, PATIENT ACKNOWLEDGES UNDERSTANDING YES PATIENT VERBALIZES UNDERSTANDING OF POST PROCEDURE INSTRUCTIONS REVIEWED, PROCEDURE APPOINTMENT COMPLETED AT 1140 BY: Justo LEA RN PN LUMBAR FACET BLOCK THERAPEUTIC PRE PROCEDURE DIAGNOSIS LUMBAR SPONDYLOSIS, LUMBOSACRAL SPONDYLOSIS POST PROCEDURE DIAGNOSIS LUMBAR SPONDYLOSIS, LUMBOSACRAL SPONDYLOSIS PROCEDURE BILATERAL L4-L5 AND BILATERAL L5-S1 LUMBAR FACET THERAPEUTIC BLOCK SURGEON DR. CLEMENCIA WU NUMERICAL CONTROL DRILL PRESS OPERATOR NONE ANESTHESIA LOCAL PRE PROCEDURE NOTE THE PATIENT HAS A HISTORY OF CHRONIC LOW BACK PAIN. I EVALUATED THE PATIENT AND REVIEWED THE CHART. I WENT OVER THE RISKS, ALTERNATIVES, AND BENEFITS ASSOCIATED WITH THIS PROCEDURE. THE PATIENT WOULD LIKE TO PROCEED AND GIVES CONSENT TO PERFORM THE PROCEDURE. THE PATIENT DENIES UNEXPLAINABLE WEIGHT LOSS, FEVER, CHILLS, OR NEW CHANGES IN URINARY OR BOWEL CONTROL. PATIENT IS COVID-19 NEGATIVE. DESCRIPTION OF PROCEDURE THE PATIENT WAS BROUGHT TO THE PROCEDURE ROOM AND PLACED IN THE PRONE POSITION. THE LUMBOSACRAL AREA WAS CLEANED WITH CHLORAPREP SOLUTION AND DRAPED ASEPTICALLY. THE PROCEDURE WAS DONE UNDER STERILE CONDITIONS. A TIMEOUT WAS PERFORMED WHERE THE CONSENTED SITE WAS VERIFIED WITH EVERYONE IN THE ROOM. UNDER FLUOROSCOPIC GUIDANCE, THE TARGET POINT WAS SELECTED AT THE RIGHT AND LEFT L4-L5 AND RIGHT AND LEFT L5-S1 FACET JOINTS. TARGET POINT WAS SELECTED AFTER LATERAL ROTATION AND TILT OF THE MAGNIFIER OF THE C-ARM. I CONFIRMED AGAIN THE SITE OF TARGET. LIDOCAINE 0.5% WAS USED TO NUMB THE SKIN AND THE SUBCUTANEOUS TISSUE BELOW IT. SPINAL NEEDLES, 22-GAUGE, WERE ADVANCED UNDER FLUOROSCOPIC GUIDANCE AND FOLLOWING PATIENT FEEDBACK UNTIL THE TARGETS WERE TOUCHED. THE POSITION OF THE NEEDLES WAS VERIFIED WITH AP AND LATERAL VIEWS. AFTER PROPER POSITION OF THE NEEDLES WAS ACHIEVED, ISOVUE-M DYE 30%, 0.1 ML, WAS INJECTED SHOWING ADEQUATE SPREAD OF THE DYE. KENALOG 10 MG WAS INJECTED AT EACH SITE. THEN, A SOLUTION OF 1.0 ML OF BUPIVACAINE 0.125% OF WAS USED TO FLUSH EACH SITE. THE MEDICATION WAS VERIFIED WITH THE NURSE. THERE WAS NO EVIDENCE OF BLOOD, PARESTHESIA OR CEREBROSPINAL FLUID DURING THE PROCEDURE. THE PATIENT WAS SENT TO THE RECOVERY ROOM. THE PATIENT WAS MOVING THE EXTREMITIES AND DOING WELL. THERE WERE NO COMPLICATIONS DURING THE PROCEDURE. ESTIMATED BLOOD LOSS WAS LESS THAN 5 ML. FLUOROSCOPY TIME WAS 40 SECONDS. POST PROCEDURE NOTE THE PATIENT WILL BE SEEN IN A FOLLOW UP IN THE NEXT FEW WEEKS. I AM LOOKING FOR LONG LASTING RELIEF FOR THE PATIENT WITH THIS INTERVENTION. INSTRUCTIONS WERE GIVEN, QUESTIONS WERE ANSWERED, AND THE PATIENT EXPRESSED UNDERSTANDING AND AGREES WITH THE PLAN. I, ROGERS DONALD, DOCUMENTED THE ABOVE INFORMATION ACTING A SCRIBE FOR DR. UW. I HAVE REVIEWED THE ABOVE DOCUMENT, WRITTEN BY ROGERS DONALD, PROCESS CONTROL TECH, AND I VERIFY THAT IT IS ACCURATE PROCEDURE CODES 85616 INJ PARAVERT F JNT L/S 1 LEV, MODIFIERS: 50 [id number] INJ PARAVERT F JNT L/S 2 LEV, MODIFIERS: 50 DISPOSITION & COMMUNICATION FOLLOW UP FOLLOW UP APPOINTMENT WITH DIRECTOR PAYMENT (REASON: POST BILATERAL THERAPEUTIC LUMBAR FACET BLOCK L4-L5, L5-S1) ELECTRONICALLY SIGNED BY CLEMENCIA WU MD, ON 10/27/2020 AT 11:48 AM EST DISCLAIMER : THIS IS A VISIT SUMMARY EXTRACTED FROM THE [employer] CHART. IT IS NOT A COPY OF THE [employer] PROGRESS NOTE. MTDD
== END ==
LOC: M PAIN 10:20
PROVIDERS: ATTEND Anesthesiology
DX: M47.816 Spondylosis without myelopathy or radiculopathy, lumbar region (principal); M47.817 Spondylosis without myelopathy or radiculopathy, lumbosacral region; G47.33 Obstructive sleep apnea (adult) (pediatric); G47.00 Insomnia, unspecified; F17.210 Nicotine dependence, cigarettes, uncomplicated; Z86.59 Personal history of other mental and behavioral disorders; Z87.820 Personal history of traumatic brain injury; Z88.6 Allergy status to analgesic agent; Z91.018 Allergy to other foods; Z91.040 Latex allergy status; Z79.899 Other long term (current) drug therapy
CPT/HCPCS: 64493; 64494; J3301; Q9967

== ENCOUNTER → 2020-11-11 | Outpatient (CLI) | payer OTHER ==
[~2020-11-11] MED LIST changes: -BUPIVACAINE HCL 0.25% 30ML VIAL As Ordered ONE; -ISOVUE-M 300 61% 15ML VIAL As Ordered ONE; -LIDOCAINE 1% SDV 30ML VIAL As Ordered ONE; -TRIAMCINOLONE ACETONIDE SUSP 40 MG/ML VIAL (J3301) As Ordered ONE; -diazePAM 5MG TABLET As Ordered ONE; -diphenhydrAMINE 25MG CAP As Ordered ONE; -oxyCODONE 5MG TAB As Ordered ONE
--- NOTE | 2020-11-16 04:23 | ECWPNPC ---
PATIENT NAME: AB TURNER : 1980 GENDER: MALE VISIT DATE: 11/11/2020 DISCHARGE DATE: 11/11/20 1333 VISIT LOCKED DATE TIME: PHYSICIAN: AUGUST HUTCHINS RESOURCE: AUGUST HUTCHINS REASON FOR APPOINTMENT 1. POST BILATERAL THERAPEUTIC LUMBAR FACET BLOCK L4-L5,L5-S1 HISTORY OF PRESENT ILLNESS GENERAL: - 40-YEAR-OLD MALE IN FOR POST BILATERAL THERAPEUTIC LUMBAR FACET BLOCK FOLLOW-UP. PATIENT FEELS THE PROCEDURE WAS INEFFECTIVE. HE RATES HIS PAIN CURRENTLY AT A 7 OUT OF 10 AND DESCRIBES IT BURNING, STABBING, AND DULL. FALL RISK SCREENING: SCREENING MULTIPLE FALLS REPORTED IN THE LAST YEAR WITHOUT INJURY.. PAIN SCREENING: PATIENT HAS A COMPLAINT OF ACUTE OR CHRONIC PAIN :YES LOCATION OF PAIN:LOW BACK INTENSITY OF PAIN (SCALE OF 1 TO 10):7 WHAT DOES YOUR PAIN FEEL LIKE:BURNING, STABBING, OTHER DULL DURATION:CONTINOUS, CONSTANT PAIN IS INCREASED BY:ACTIVITIES, PROLONGED STANDING PAIN IS DECREASED BY:USE OF PAIN MEDICATIONS, SITTING NURSING NOTE: -. PAIN CENTER INTAKE QUESTIONS: DO YOU HAVE A HISTORY OF MRSA? :NO DO YOU TAKE A BLOOD THINNERS? :NO DO YOU HAVE ANY BLEEDING DISORDERS? :NO ANY NEW NUMBNESS OR WEAKNESS IN YOUR LEGS OR ARMS? :NO ANY PACEMAKER,DEFIBRILLATOR, OR DORSAL COLUMN STIMULATOR? :NO DO YOU HAVE ANY RASHES OR OPEN SORES? :NO ARE YOU ALLERGIC TO IV DYE? :NO ARE YOU DIABETIC? :NO BORDERLINE ANY NEW PROBLEMS WITH YOUR MEDICATIONS? :NO HAVE YOU RECEIVED A VACCINE IN THE PAST 30 DAYS? :YES IF SO WHAT VACCINE AND WHEN? 1ST COVID VACCINATION 11/05/2020 DO YOU PLAN TO RECEIVE A VACCINE IN THE NEXT 21 DAYS? :YES IF SO WHAT VACCINE AND WHEN? SECOND COVID VACCINATION SCHEDULED AROUND 12/06/20 DO YOU NEED ANY PRESCRIPTION? :NO DO YOU TAKE ANY IMMUNOSUPPRESSIVE MEDICATIONS? :NO DO YOU HAVE ANY KIDNEY OR LIVER DISEASE? :NO IS THERE A CHANCE YOU COULD BE ? :NO ARE YOU BREAST FEEDING? :NO CURRENT MEDICATIONS TAKING ZOLOFT 100 MG TABLET 1 TABLET ORALLY ONCE A DAY TAKING ARIPIPRAZOLE 20 MG TABLET 1 TABLET ORALLY ONCE A DAY TAKING HYDROXYZINE HCL 25 MG TABLET 1 TABLET NEEDED ORALLY EVERY 8 HRS TAKING SERTRALINE HCL 100 MG TABLET 2 TABLET ORALLY ONCE A DAY TAKING BUPROPION HCL ER (SR) 150 MG TABLET EXTENDED RELEASE 12 HOUR 1 TABLET IN THE MORNING ORALLY ONCE A DAY TAKING PRAZOSIN HCL 2 MG CAPSULE 4 CAPSULE AT BEDTIME ORALLY ONCE A DAY TAKING PREGABALIN 75 MG CAPSULE 1 CAPSULE ORALLY BID TAKING ALBUTEROL SULFATE HFA 108 (90 BASE) MCG/ACT AEROSOL SOLUTION 2 PUFFS NEEDED INHALATION EVERY 4 HRS TAKING CARISOPRODOL 350 MG TABLET 1 TABLET NEEDED ORALLY BID, NOTES: 10/25/20202199 TAKING TIOTROPIUM BROMIDE MONOHYDRATE 2.5 MCG/ACT AEROSOL SOLUTION 2 PUFFS INHALATION ONCE A DAY TAKING RIBOFLAVIN 100 MG CAPSULE 2 CAPSULES ORALLY BID TAKING SILDENAFIL CITRATE 100 MG TABLET 1 TABLET NEEDED ORALLY ONCE A DAY TAKING OXYCODONE HCL 5 MG TABLET 1 TABLET NEEDED ORALLY BID MDD 2, NOTES: 10/25/20202199 TAKING EPINEPHRINE PF 1 MG/ML SOLUTION DIRECTED INJECTION TAKING MULTIVITAMIN - TABLET 1 TABLET ORALLY ONCE A DAY TAKING BUDESONIDE-FORMOTEROL FUMARATE 160-4.5 MCG/ACT AEROSOL 2 PUFFS INHALATION TWICE A DAY TAKING ESZOPICLONE 2 MG TABLET 1 TABLET IMMEDIATELY BEFORE BEDTIME ORALLY ONCE A DAY TAKING MAGNESIUM OXIDE 400 MG TABLET 1 TABLET NEEDED ORALLY ONCE A DAY TAKING VITAMIN B COMPLEX - TABLET DIRECTED ORALLY DAILY NOT-TAKING FAMOTIDINE 20 MG TABLET 1 TABLET AT BEDTIME NEEDED ORALLY ONCE A DAY UNKNOWN CARBOXYMETHYLCELLULOSE SODIUM 0.5 % SOLUTION 1 DROP OPHTHALMIC TID UNKNOWN PENICILLIN V POTASSIUM 250 MG TABLET 1 TABLET ORALLY QID UNKNOWN NICORETTE 2 MG GUM 1 PIECE FOR 30 MINUTE NEEDED MOUTH/THROAT 24 TIME(S) A DAY MEDICATION LIST REVIEWED AND RECONCILED WITH THE PATIENT PAST MEDICAL HISTORY PTSD BORDERLINE DIABETIC TBI (2010, 2008, 2006) GANESH WITH BIPAP WITH 3 LITER BLEED IN DEPRESSION ANXIETY INSOMNIA ED (DUE TO MEDICATIONS) HYPOXIA (CO2 RETENTION) SECONDARY TO GANESH; TOXIN EXPOSURE WHILE DEPLOYED LOW BACK PAIN ALLERGIES KETOROLAC TROMETHAMINE: HIVES - ALLERGY LATEX (FOR ALLERGY USE ONLY): HIVES - ALLERGY WHEAT: HIVES - ALLERGY SOCIAL HISTORY GENERAL: TOBACCO USE ARE YOU A:CURRENT SMOKER HOW OFTEN DO YOU SMOKE CIGARETTES?EVERY DAY HOW SOON AFTER YOU WAKE UP DO YOU SMOKE YOUR FIRST CIGARETTE?31-60 MIN HOW MANY CIGARETTES A DAY DO YOU SMOKE?5 OR LESS ARE YOU INTERESTED IN QUITTING?NOT READY TO QUIT PATIENT COUNSELED ON THE DANGERS OF TOBACCO USE AND URGED TO QUIT:10/25/2020 LATEX QUESTIONNAIRE LATEX ALLERGY : HAVE YOU EVER DEVELOPED ANY TYPE OF REACTION AFTER HANDLING LATEX PRODUCTS SUCH RUBBER GLOVES, CONDOMS, DIAPHRAGMS, BALLOONS, SOCKS, OR UNDERWEAR?YES - PLEASE INDICATE :RUBBER GLOVES, CONDOMS LATEX ALLERGY : HAVE YOU EVER DEVELOPED ANY TYPE OF REACTION DURING OR AFTER DENTAL APPOINTMENT, VAGINAL/RECTAL EXAMINATION, SURGICAL PROCEDURE, OR ANY OTHER EXPOSURE?NO LATEX RISK : HAVE YOU EVER HAD ANY DIFFICULTY BREATHING OR HIVES AFTER EATING OR HANDLING ANY FRUITS, OR VEGETABLES; SUCH KIWI, BANANAS, STONE FRUITS, OR CHESTNUTSNO LATEX RISK : DO YOU HAVE A PREVIOUS PERSONAL HISTORY OF MORE THAN NINE SURGERIES, SPINA BIFIDA, OR REPEATED CATHERIZATIONS? NO LATEX RISK : ARE YOU FREQUENTLY EXPOSED TO LATEX PRODUCTS IN YOUR OCCUPATION?NO DATE ASKED : 11/11/2020 LATEX ALLERGY, AND TTARDOL ALCOHOL USE: NO. LUNG CANCER SCREENING SMOKING STATUS:CURRENT SMOKER IS THE PATIENT BETWEEN THE AGE OF 55 AND 77?NO ALCOHOL SCREENING DID YOU HAVE A DRINK CONTAINING ALCOHOL IN THE PAST YEAR?YES HOW OFTEN DID YOU HAVE SIX OR MORE DRINKS ON ONE OCCASION IN THE PAST YEAR?NEVER (0 POINTS) HOW MANY DRINKS DID YOU HAVE ON A TYPICAL DAY WHEN YOU WERE DRINKING IN THE PAST YEAR?1 OR 2 (0 POINTS) HOW OFTEN DID YOU HAVE A DRINK CONTAINING ALCOHOL IN THE PAST YEAR?MONTHLY OR LESS (1 POINT) POINTS1 INTERPRETATIONNEGATIVE RECREATIONAL DRUG USE DRUG USE?NO CAFFEINE CAFFEINE USE?YES 2-3 DAILY LANGUAGE LANGUAGES SPOKEN:THAI LEARNING BARRIERS / SPECIAL NEEDS CHANGE FROM LAST VISIT?NO BARRIERS TO LEARNING?NO HEARING IMPAIRED?YES MINOR HEARING LOSS DUE TO VISION IMPAIRED?YES :CORRECTIVE LENSES COGNITIVELY IMPAIRED?NO READINESS TO LEARN?YES LEARNING PREFERENCES?YES :HANDOUTS, DEMONSTRATION/VERBAL INSTRUCTION, OTHER (PLEASE COMMENT) HANDS ON LEARNING CAPABILITIES PRESENT?YES EMOTIONAL BARRIERS?YES COMMENTSDOCUMENTED IN NOTES SECTION> PTSD SPECIAL DEVICES?YES :CANE RIGHT OF WAY WORKER NEEDED?NO DOMESTIC VIOLENCE STATUS: DO YOU FEEL SAFE IN YOUR ENVIRONMENT?YES OCCUPATION: COMBAT , 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 EXERCISE: WALKS, DAILY. MARITAL STATUS: . OTHERS AT HOME: SPOUSE, CHILDREN, MOTHER. - HAS THE PATIENT BEEN EDUCATED REGARDING HIS/HER PLAN OF CARE?YES HAS THE PATIENT BEEN EDUCATED REGARDING PAIN, THE RISK FOR PAIN, THE IMPORTANCE OF EFFECTIVE PAIN MANAGEMENT, AND THE PAIN ASSESSMENT PROCESS?YES ADVANCE DIRECTIVE ADVANCE DIRECTIVE DISCUSSED WITH PATIENT:YES PT STATES HE DOES NOT HAVE ANY ADVANCED DIRECTIVES AND HE DECLINES INFORMATION ON HCP AT THIS TIME. REVIEW OF SYSTEMS CONSTITUTIONAL: ANY RECENT FEVER NO, NO . CHILLS NO, NO . WEIGHT CHANGE OF UNKNOWN REASONS NO, NO . GASTROENTEROLOGY: NEW UNEXPLAINABLE CHANGES IN BOWEL CONTROL NO, NO . CONSTIPATION NO, NO . GENITOURINARY: ANY NEW CHANGE IN BLADDER CONTROL? NO, NO . NEUROLOGY: NEW ONSET DIZZINESS OR NEUROLOGICAL CHANGES NOT MENTIONED NO, NO . NEW NUMBNESS OR PAIN PATTERNS NOT MENTIONED AND PERTINENT TO TODAY'S VISIT NO, NO . CARDIOLOGY: NEW CHEST PRESSURE NO, NO . PATIENT DENIES NO, NO . RESPIRATORY: UNEXPLAINABLE COUGH NO, NO . NEW SHORTNESS OF BREATH NO, NO . VITAL SIGNS WT 190.6 LBS, HT 60 IN, BMI 37.22 INDEX, BP 149/82 MM HG, HR 79 /MIN, RR 18 /MIN, TEMP 98.6 F, OXYGEN SAT % 97%, SAFE IN ENV? (Y/N) YES, REVIEWED BY: TALIB GRESHAM MA. EXAMINATION GENERAL EXAMINATION: GENERALNO ACUTE DISTRESS, WELL NOURISHED AND HYDRATED. PSYCHAPPROPRIATE MOOD AND AFFECT . LUNGS:CLEAR TO AUSCULTATION BILATERALLY, NO WHEEZES, RHONCHI, RALES. HEART:NO MURMURS, REGULAR RATE AND RHYTHM. ASSESSMENTS OTHER CHRONIC PAIN - G89.29 (PRIMARY) SPONDYLOSIS WITHOUT MYELOPATHY OR RADICULOPATHY, LUMBOSACRAL REGION - M47.817 TREATMENT OTHER CHRONIC PAIN PAIN PROCEDURE LOGDATE OF PROCEDURE10/26/20PROCEDURE:BILATERAL THERAPEUTIC LUMBAR FACET BLOCK L4-L5, L5-L4EDADQS OF PRE SEDATEVALIUM 10MG, OXYCODONE 10MG, BENADRYL 25MGRESULT:INEFFECTIVE NOTES: 40-YEAR-OLD MALE IN FOR POST BILATERAL THERAPEUTIC LUMBAR FACET BLOCK FOLLOW-UP. GIVEN PRESENTING SYMPTOMS RECOMMEND FOLLOW-UP IN 2 MONTHS. PATIENT HAS EXPRESSED UNDERSTANDING OF AND WAS IN AGREEMENT WITH TREATMENT PLAN. GIVEN TIME TO ASK QUESTIONS AND EXPRESS CONCERNS. PROCEDURE CODES FA211 ESTABILISHED [facility] CHARGE DISPOSITION & COMMUNICATION FOLLOW UP 2 MONTHS (REASON: BACK PAIN ) ELECTRONICALLY SIGNED BY REDDY RAE ON 11/15/2020 AT 08:29 AM EDT DISCLAIMER : THIS IS A VISIT SUMMARY EXTRACTED FROM THE [employer] CHART. IT IS NOT A COPY OF THE [employer] PROGRESS NOTE. NEIL
== END ==
LOC: M PAIN 13:15
PROVIDERS: ATTEND Family Medicine
DX: M47.817 Spondylosis without myelopathy or radiculopathy, lumbosacral region (principal); G89.29 Other chronic pain; G47.33 Obstructive sleep apnea (adult) (pediatric); G47.00 Insomnia, unspecified; F17.210 Nicotine dependence, cigarettes, uncomplicated; Z87.820 Personal history of traumatic brain injury; Z86.59 Personal history of other mental and behavioral disorders; Z88.6 Allergy status to analgesic agent; Z91.018 Allergy to other foods; Z91.040 Latex allergy status; Z79.899 Other long term (current) drug therapy

== ENCOUNTER → 2021-01-11 | Outpatient (CLI) | payer OTHER ==
--- NOTE | 2021-01-14 05:49 | ECWPNPC ---
PATIENT NAME: AB TURNER : 1980 GENDER: MALE VISIT DATE: 01/11/2021 DISCHARGE DATE: 01/11/21 1424 VISIT LOCKED DATE TIME: PHYSICIAN: AUGUST HUTCHINS RESOURCE: AUGUST HUTCHINS REASON FOR APPOINTMENT 1. BACK PAIN HISTORY OF PRESENT ILLNESS GENERAL: HPI 40-YEAR-OLD MALE IN FOR CHRONIC PAIN FOLLOW-UP. HE RATES PAIN CURRENTLY AT A 6 OUT OF 10 AND DESCRIBES IT ACHING, SHARP, AND STABBING. PATIENT HAS HAD BILATERAL THERAPEUTIC LUMBAR FACET BLOCKS IN THE PAST WITH GOOD RESULTS AND WE WILL DISCUSS REPEAT PROCEDURES TODAY. GOOD RESULTS WERE EVIDENCED BY DECREASED PAIN AND INCREASED FUNCTIONALITY.. -. FALL RISK SCREENING: SCREENING : ONE FALL REPORTED IN THE LAST YEAR. PAIN SCREENING: PATIENT HAS A COMPLAINT OF ACUTE OR CHRONIC PAIN :YES LOCATION OF PAIN:NECK, BOTH SHOULDERS, LOW BACK INTENSITY OF PAIN (SCALE OF 1 TO 10):6 WHAT DOES YOUR PAIN FEEL LIKE:ACHING, SHARP, STABBING DURATION:CONTINOUS, CONSTANT PAIN IS INCREASED BY:ACTIVITIES PAIN IS DECREASED BY:USE OF PAIN MEDICATIONS NURSING NOTE: -. PAIN CENTER INTAKE QUESTIONS: DO YOU HAVE A HISTORY OF MRSA? :NO DO YOU TAKE A BLOOD THINNERS? :NO DO YOU HAVE ANY BLEEDING DISORDERS? :NO ANY NEW NUMBNESS OR WEAKNESS IN YOUR LEGS OR ARMS? :NO ANY PACEMAKER,DEFIBRILLATOR, OR DORSAL COLUMN STIMULATOR? :NO DO YOU HAVE ANY RASHES OR OPEN SORES? :NO ARE YOU ALLERGIC TO IV DYE? :NO ARE YOU DIABETIC? :NO ANY NEW PROBLEMS WITH YOUR MEDICATIONS? :NO HAVE YOU RECEIVED A VACCINE IN THE PAST 30 DAYS? :NO DO YOU PLAN TO RECEIVE A VACCINE IN THE NEXT 21 DAYS? :NO DO YOU NEED ANY PRESCRIPTION? :NO DO YOU TAKE ANY IMMUNOSUPPRESSIVE MEDICATIONS? :NO DO YOU HAVE ANY KIDNEY OR LIVER DISEASE? :NO IS THERE A CHANCE YOU COULD BE ? :NO ARE YOU BREAST FEEDING? :NO CURRENT MEDICATIONS TAKING ZOLOFT 100 MG TABLET 1 TABLET ORALLY ONCE A DAY TAKING ARIPIPRAZOLE 20 MG TABLET 1 TABLET ORALLY ONCE A DAY TAKING HYDROXYZINE HCL 25 MG TABLET 1 TABLET NEEDED ORALLY EVERY 8 HRS TAKING SERTRALINE HCL 100 MG TABLET 2 TABLET ORALLY ONCE A DAY TAKING BUPROPION HCL ER (SR) 150 MG TABLET EXTENDED RELEASE 12 HOUR 1 TABLET IN THE MORNING ORALLY ONCE A DAY TAKING PRAZOSIN HCL 2 MG CAPSULE 4 CAPSULE AT BEDTIME ORALLY ONCE A DAY TAKING PREGABALIN 75 MG CAPSULE 1 CAPSULE ORALLY BID TAKING ALBUTEROL SULFATE HFA 108 (90 BASE) MCG/ACT AEROSOL SOLUTION 2 PUFFS NEEDED INHALATION EVERY 4 HRS TAKING CARISOPRODOL 350 MG TABLET 1 TABLET NEEDED ORALLY BID TAKING TIOTROPIUM BROMIDE MONOHYDRATE 2.5 MCG/ACT AEROSOL SOLUTION 2 PUFFS INHALATION ONCE A DAY TAKING RIBOFLAVIN 100 MG CAPSULE 2 CAPSULES ORALLY BID TAKING SILDENAFIL CITRATE 100 MG TABLET 1 TABLET NEEDED ORALLY ONCE A DAY TAKING OXYCODONE HCL 5 MG TABLET 1 TABLET NEEDED ORALLY BID MDD 2 TAKING EPINEPHRINE PF 1 MG/ML SOLUTION DIRECTED INJECTION TAKING MULTIVITAMIN - TABLET 1 TABLET ORALLY ONCE A DAY TAKING BUDESONIDE-FORMOTEROL FUMARATE 160-4.5 MCG/ACT AEROSOL 2 PUFFS INHALATION TWICE A DAY TAKING ESZOPICLONE 2 MG TABLET 1 TABLET IMMEDIATELY BEFORE BEDTIME ORALLY ONCE A DAY TAKING MAGNESIUM OXIDE 400 MG TABLET 1 TABLET NEEDED ORALLY ONCE A DAY TAKING VITAMIN B COMPLEX - TABLET DIRECTED ORALLY DAILY NOT-TAKING FAMOTIDINE 20 MG TABLET 1 TABLET AT BEDTIME NEEDED ORALLY ONCE A DAY UNKNOWN CARBOXYMETHYLCELLULOSE SODIUM 0.5 % SOLUTION 1 DROP OPHTHALMIC TID UNKNOWN PENICILLIN V POTASSIUM 250 MG TABLET 1 TABLET ORALLY QID UNKNOWN NICORETTE 2 MG GUM 1 PIECE FOR 30 MINUTE NEEDED MOUTH/THROAT 24 TIME(S) A DAY MEDICATION LIST REVIEWED AND RECONCILED WITH THE PATIENT PAST MEDICAL HISTORY PTSD BORDERLINE DIABETIC TBI (2010, 2008, 2006) GANESH WITH BIPAP WITH 3 LITER BLEED IN DEPRESSION ANXIETY INSOMNIA ED (DUE TO MEDICATIONS) HYPOXIA (CO2 RETENTION) SECONDARY TO GANESH; TOXIN EXPOSURE WHILE DEPLOYED LOW BACK PAIN ALLERGIES KETOROLAC TROMETHAMINE: HIVES - ALLERGY LATEX (FOR ALLERGY USE ONLY): HIVES - ALLERGY WHEAT: HIVES - ALLERGY SOCIAL HISTORY GENERAL: TOBACCO USE ARE YOU A:CURRENT SMOKER HOW OFTEN DO YOU SMOKE CIGARETTES?EVERY DAY HOW SOON AFTER YOU WAKE UP DO YOU SMOKE YOUR FIRST CIGARETTE?31-60 MIN HOW MANY CIGARETTES A DAY DO YOU SMOKE?5 OR LESS ARE YOU INTERESTED IN QUITTING?NOT READY TO QUIT PATIENT COUNSELED ON THE DANGERS OF TOBACCO USE AND URGED TO QUIT:10/25/2020 LATEX QUESTIONNAIRE LATEX ALLERGY : HAVE YOU EVER DEVELOPED ANY TYPE OF REACTION AFTER HANDLING LATEX PRODUCTS SUCH RUBBER GLOVES, CONDOMS, DIAPHRAGMS, BALLOONS, SOCKS, OR UNDERWEAR?YES LATEX ALLERGY : HAVE YOU EVER DEVELOPED ANY TYPE OF REACTION DURING OR AFTER DENTAL APPOINTMENT, VAGINAL/RECTAL EXAMINATION, SURGICAL PROCEDURE, OR ANY OTHER EXPOSURE?NO - PLEASE INDICATE :RUBBER GLOVES, CONDOMS DATE ASKED : 11/11/2020 LATEX ALLERGY, AND TTARDOL LATEX RISK : HAVE YOU EVER HAD ANY DIFFICULTY BREATHING OR HIVES AFTER EATING OR HANDLING ANY FRUITS, OR VEGETABLES; SUCH KIWI, BANANAS, STONE FRUITS, OR CHESTNUTSNO LATEX RISK : DO YOU HAVE A PREVIOUS PERSONAL HISTORY OF MORE THAN NINE SURGERIES, SPINA BIFIDA, OR REPEATED CATHERIZATIONS? NO LATEX RISK : ARE YOU FREQUENTLY EXPOSED TO LATEX PRODUCTS IN YOUR OCCUPATION?NO ALCOHOL USE: NO. LUNG CANCER SCREENING SMOKING STATUS:CURRENT SMOKER IS THE PATIENT BETWEEN THE AGE OF 55 AND 77?NO ALCOHOL SCREENING DID YOU HAVE A DRINK CONTAINING ALCOHOL IN THE PAST YEAR?YES HOW OFTEN DID YOU HAVE SIX OR MORE DRINKS ON ONE OCCASION IN THE PAST YEAR?NEVER (0 POINTS) HOW MANY DRINKS DID YOU HAVE ON A TYPICAL DAY WHEN YOU WERE DRINKING IN THE PAST YEAR?1 OR 2 (0 POINTS) HOW OFTEN DID YOU HAVE A DRINK CONTAINING ALCOHOL IN THE PAST YEAR?MONTHLY OR LESS (1 POINT) POINTS1 INTERPRETATIONNEGATIVE RECREATIONAL DRUG USE DRUG USE?NO CAFFEINE CAFFEINE USE?YES 2-3 DAILY LANGUAGE LANGUAGES SPOKEN:KYRGYZ LEARNING BARRIERS / SPECIAL NEEDS CHANGE FROM LAST VISIT?NO BARRIERS TO LEARNING?NO HEARING IMPAIRED?YES MINOR HEARING LOSS DUE TO VISION IMPAIRED?YES COGNITIVELY IMPAIRED?NO :CORRECTIVE LENSES READINESS TO LEARN?YES LEARNING PREFERENCES?YES :HANDOUTS, DEMONSTRATION/VERBAL INSTRUCTION, OTHER (PLEASE COMMENT) HANDS ON LEARNING CAPABILITIES PRESENT?YES EMOTIONAL BARRIERS?YES COMMENTSDOCUMENTED IN NOTES SECTION> PTSD SPECIAL DEVICES?YES :[employer] RE[employer]ILIT[employer] SERVICES MANAGER NEEDED?NO DOMESTIC VIOLENCE STATUS: DO YOU FEEL SAFE IN YOUR ENVIRONMENT?YES OCCUPATION: COMBAT , 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 EXERCISE: WALKS, DAILY. MARITAL STATUS: . OTHERS AT HOME: SPOUSE, CHILDREN, MOTHER. - HAS THE PATIENT BEEN EDUCATED REGARDING HIS/HER PLAN OF CARE?YES HAS THE PATIENT BEEN EDUCATED REGARDING PAIN, THE RISK FOR PAIN, THE IMPORTANCE OF EFFECTIVE PAIN MANAGEMENT, AND THE PAIN ASSESSMENT PROCESS?YES ADVANCE DIRECTIVE ADVANCE DIRECTIVE DISCUSSED WITH PATIENT:YES PT STATES HE DOES NOT HAVE ANY ADVANCED DIRECTIVES AND HE DECLINES INFORMATION ON HCP AT THIS TIME. REVIEW OF SYSTEMS CONSTITUTIONAL: ANY RECENT FEVER NO . CHILLS NO . WEIGHT CHANGE OF UNKNOWN REASONS NO . GASTROENTEROLOGY: NEW UNEXPLAINABLE CHANGES IN BOWEL CONTROL NO . CONSTIPATION NO . GENITOURINARY: ANY NEW CHANGE IN BLADDER CONTROL? NO . NEUROLOGY: NEW ONSET DIZZINESS OR NEUROLOGICAL CHANGES NOT MENTIONED NO . NEW NUMBNESS OR PAIN PATTERNS NOT MENTIONED AND PERTINENT TO TODAY'S VISIT NO . CARDIOLOGY: NEW CHEST PRESSURE NO . PATIENT DENIES NO . RESPIRATORY: UNEXPLAINABLE COUGH NO . NEW SHORTNESS OF BREATH NO . VITAL SIGNS WT 193.2 LBS, HT 60 IN, BMI 37.73 INDEX, BP 140/74 MM HG, HR 109 /MIN, RR 18 /MIN, TEMP 98.0 F, OXYGEN SAT % 94%, NA INITIALS AW 1332, REVIEWED BY: EM. EXAMINATION GENERAL EXAMINATION: GENERALNO ACUTE DISTRESS, WELL NOURISHED AND HYDRATED. PSYCHAPPROPRIATE MOOD AND AFFECT . LUNGS:CLEAR TO AUSCULTATION BILATERALLY, NO WHEEZES, RHONCHI, RALES. HEART:NO MURMURS, REGULAR RATE AND RHYTHM. BACK:POINT TENDER ALONG LUMBAR SPINE, SURROUNDING SKIN SHOWS NO ERYTHEMA, ECCHYMOSIS, INCREASED WARMTH, AND/OR SKIN ERUPTIONS NOTED. PATIENT DOES ENDORSE INCREASED PAIN WITH FACET LOADING.. ASSESSMENTS SPONDYLOSIS WITHOUT MYELOPATHY OR RADICULOPATHY, LUMBOSACRAL REGION - M47.817 (PRIMARY) TREATMENT SPONDYLOSIS WITHOUT MYELOPATHY OR RADICULOPATHY, LUMBOSACRAL REGION MEDICATION: VALIUM TAB 10MG ORALLY (DIAZEPAM) (ORDERED FOR 01/18/2021) MEDICATION: OXYCODONE HCL TAB 10MG ORALLY (ORDERED FOR 01/18/2021) NOTES: 40-YEAR-OLD MALE IN FOR CHRONIC PAIN FOLLOW-UP. GIVEN PRESENTING SYMPTOMS AND RESULTS OF PHYSICAL EXAMINATION RECOMMEND BILATERAL THERAPEUTIC LUMBAR FACET BLOCK L4-L5 L5-S1 WITH POST PROCEDURAL FOLLOW-UP. FURTHER RECOMMENDED PATIENT DISCUSS INCREASING LYRICA DOSAGE WITH HIS PRIMARY. PATIENT HAS EXPRESSED UNDERSTANDING OF AND WAS IN AGREEMENT WITH TREATMENT PLAN. GIVEN TIME TO ASK QUESTIONS AND EXPRESS CONCERNS. DISPOSITION & COMMUNICATION FOLLOW UP POST PROCEDURE (REASON: BILATERAL THERAPEUTIC LUMBAR FACET BLOCK L4-L5, L5-S1) ELECTRONICALLY SIGNED BY REDDY RAE ON 01/13/2021 AT 08:48 AM EDT DISCLAIMER : THIS IS A VISIT SUMMARY EXTRACTED FROM THE [employer] CHART. IT IS NOT A COPY OF THE [employer] PROGRESS NOTE. MTDD
== END ==
LOC: M PAIN 13:30
PROVIDERS: ATTEND Family Medicine
DX: M47.817 Spondylosis without myelopathy or radiculopathy, lumbosacral region (principal); G89.29 Other chronic pain; G47.33 Obstructive sleep apnea (adult) (pediatric); G47.00 Insomnia, unspecified; F17.210 Nicotine dependence, cigarettes, uncomplicated; Z87.820 Personal history of traumatic brain injury; Z86.59 Personal history of other mental and behavioral disorders; Z88.6 Allergy status to analgesic agent; Z91.018 Allergy to other foods; Z91.040 Latex allergy status; Z79.899 Other long term (current) drug therapy

== ENCOUNTER → 2021-01-14 | Outpatient (CLI) | payer OTHER | LOC: M LABSMTC 09:28 | PROVIDERS: ATTEND Anesthesiology | DX: Z20.822 Contact with and (suspected) exposure to COVID-19 (principal) ==

== ENCOUNTER → 2021-01-19 | Outpatient (CLI) | payer OTHER ==
[~2021-01-19] MED LIST changes: +BUPIVACAINE HCL 0.25% 30ML VIAL As Ordered ONE; +ISOVUE-M 300 61% 15ML VIAL As Ordered ONE; +LIDOCAINE 1% SDV 30ML VIAL As Ordered ONE; +TRIAMCINOLONE ACETONIDE SUSP 40 MG/ML VIAL (J3301) As Ordered ONE; +diazePAM 5MG TABLET As Ordered ONE; +oxyCODONE 5MG TAB As Ordered ONE
--- NOTE | 2021-01-19 10:36 | REP ---
INDICATION: BILATERAL THERAPEUTIC LUMBAR FACET BLOCK. COMPARISON: 10/26/2020. TECHNIQUE: Two C-arm views lower lumbar spine performed. FINDINGS: Herrick are seen along the lower lumbar facet joints. A small amount of contrast is injected. IMPRESSION: 54 seconds of fluoroscopy time is utilized. <Electronically signed by Khruram Givens > 01/19/21 1030
--- NOTE | 2021-01-25 00:51 | ECWPNPC ---
PATIENT NAME: AB TURNER : 1980 GENDER: MALE VISIT DATE: 01/19/2021 DISCHARGE DATE: 01/19/21 1104 VISIT LOCKED DATE TIME: PHYSICIAN: CLEMENCIA WU MD RESOURCE: CLEMENCIA WU MD REASON FOR APPOINTMENT 1. BILATERAL THERAPEUTIC LUMBAR FACET BLOCK L4-L5, L5-S1 HISTORY OF PRESENT ILLNESS GENERAL: -. FALL RISK SCREENING: SCREENING : MULTIPLE FALLS " WHEN MY KNEES GIVE OUT". NO EVALUATION. PAIN SCREENING: PATIENT HAS A COMPLAINT OF ACUTE OR CHRONIC PAIN :YES LOCATION OF PAIN:LOW BACK INTENSITY OF PAIN (SCALE OF 1 TO 10):8 WHAT DOES YOUR PAIN FEEL LIKE:ACHING, CONTINOUS, SHARP, STABBING DURATION:CONTINOUS, CONSTANT PAIN IS INCREASED BY:ACTIVITIES, PROLONGED STANDING PAIN IS DECREASED BY:USE OF PAIN MEDICATIONS NURSING NOTE: -. PAIN CENTER INTAKE QUESTIONS: DO YOU HAVE A HISTORY OF MRSA? :NO DO YOU TAKE A BLOOD THINNERS? :NO DO YOU HAVE ANY BLEEDING DISORDERS? :NO ANY NEW NUMBNESS OR WEAKNESS IN YOUR LEGS OR ARMS? :NO ANY PACEMAKER,DEFIBRILLATOR, OR DORSAL COLUMN STIMULATOR? :NO DO YOU HAVE ANY RASHES OR OPEN SORES? :NO ARE YOU ALLERGIC TO IV DYE? :NO ARE YOU DIABETIC? :YES FSBS 92 ANY NEW PROBLEMS WITH YOUR MEDICATIONS? :NO HAVE YOU RECEIVED A VACCINE IN THE PAST 30 DAYS? :NO DO YOU PLAN TO RECEIVE A VACCINE IN THE NEXT 21 DAYS? :NO DO YOU TAKE ANY IMMUNOSUPPRESSIVE MEDICATIONS? :NO ANY HISTORY OF SEIZURES? :NO ANY HISTORY OF CARDIAC ISSUES OR EVENTS? :NO DO YOU HAVE ANY KIDNEY OR LIVER DISEASE? :NO DO YOU HAVE SLEEP APNEA? :YES DO YOU WEAR A CPAP?YES BIPAP WITH 3L BLED IN ANY RECENT HEAD INJURY? :NO DO YOU HAVE ANY NEW INFECTIONS? :NO IS THERE A CHANCE YOU COULD BE ? :NO ARE YOU BREAST FEEDING? :NO WHEN DID YOU LAST EAT? : 01/19/21 0015 WHEN DID YOU LAST DRINK? : 01/18/21 2300 WHAT DID YOU LAST DRINK? : ROSI JEAN-BAPTISTE NAME OF PERSON DRIVING YOU HOME? : -MOM CRISTIAN DO YOU HAVE ANY OTHER QUESTIONS OR CONCERNS? : - CURRENT MEDICATIONS TAKING ZOLOFT 100 MG TABLET 1 TABLET ORALLY ONCE A DAY TAKING ARIPIPRAZOLE 20 MG TABLET 1 TABLET ORALLY ONCE A DAY TAKING HYDROXYZINE HCL 25 MG TABLET 1 TABLET NEEDED ORALLY EVERY 8 HRS, NOTES: NONE RECENT TAKING SERTRALINE HCL 100 MG TABLET 2 TABLET ORALLY ONCE A DAY TAKING BUPROPION HCL ER (SR) 150 MG TABLET EXTENDED RELEASE 12 HOUR 1 TABLET IN THE MORNING ORALLY ONCE A DAY TAKING PRAZOSIN HCL 2 MG CAPSULE 4 CAPSULE AT BEDTIME ORALLY ONCE A DAY TAKING PREGABALIN 75 MG CAPSULE 1 CAPSULE ORALLY BID, NOTES: 01/18/21 2100 TAKING ALBUTEROL SULFATE HFA 108 (90 BASE) MCG/ACT AEROSOL SOLUTION 2 PUFFS NEEDED INHALATION EVERY 4 HRS TAKING CARISOPRODOL 350 MG TABLET 1 TABLET NEEDED ORALLY BID, NOTES: 01/18/21 1800 TAKING TIOTROPIUM BROMIDE MONOHYDRATE 2.5 MCG/ACT AEROSOL SOLUTION 2 PUFFS INHALATION ONCE A DAY TAKING RIBOFLAVIN 100 MG CAPSULE 2 CAPSULES ORALLY BID TAKING SILDENAFIL CITRATE 100 MG TABLET 1 TABLET NEEDED ORALLY ONCE A DAY, NOTES: NONE RECENT TAKING OXYCODONE HCL 5 MG TABLET 1 TABLET NEEDED ORALLY BID MDD 2, NOTES: 01/18/21 1800 TAKING EPINEPHRINE PF 1 MG/ML SOLUTION DIRECTED INJECTION TAKING MULTIVITAMIN - TABLET 1 TABLET ORALLY ONCE A DAY TAKING BUDESONIDE-FORMOTEROL FUMARATE 160-4.5 MCG/ACT AEROSOL 2 PUFFS INHALATION TWICE A DAY TAKING ESZOPICLONE 2 MG TABLET 1 TABLET IMMEDIATELY BEFORE BEDTIME ORALLY ONCE A DAY TAKING MAGNESIUM OXIDE 400 MG TABLET 1 TABLET NEEDED ORALLY ONCE A DAY TAKING VITAMIN B COMPLEX - TABLET DIRECTED ORALLY DAILY NOT-TAKING FAMOTIDINE 20 MG TABLET 1 TABLET AT BEDTIME NEEDED ORALLY ONCE A DAY NOT-TAKING CARBOXYMETHYLCELLULOSE SODIUM 0.5 % SOLUTION 1 DROP OPHTHALMIC TID NOT-TAKING PENICILLIN V POTASSIUM 250 MG TABLET 1 TABLET ORALLY QID NOT-TAKING NICORETTE 2 MG GUM 1 PIECE FOR 30 MINUTE NEEDED MOUTH/THROAT 24 TIME(S) A DAY MEDICATION LIST REVIEWED AND RECONCILED WITH THE PATIENT PAST MEDICAL HISTORY PTSD BORDERLINE DIABETIC TBI (2010, 2008, 2006) GANESH WITH BIPAP WITH 3 LITER BLEED IN DEPRESSION ANXIETY INSOMNIA ED (DUE TO MEDICATIONS) HYPOXIA (CO2 RETENTION) SECONDARY TO GANESH; TOXIN EXPOSURE WHILE DEPLOYED LOW BACK PAIN ALLERGIES KETOROLAC TROMETHAMINE: HIVES - ALLERGY LATEX (FOR ALLERGY USE ONLY): HIVES - ALLERGY WHEAT: HIVES - ALLERGY SURGICAL HISTORY CHEST TUBE PLACEMENT 02/1980 UMBILICAL HERNIA REPAIR 02/1980 APPENDECTOMY 2000 RIGHT INGUINAL HERNAI REPAIR 2013 GALLBLADDER REMOVED 2012 BOTTOM WISDOM TEETH REMOVED 2010 FAMILY HISTORY FATHER: 66 YRS, DIAGNOSED WITH UNSPECIFIED HEART DISEASE MOTHER: ALIVE, DIABETES, HYPERTENSION, UNSPECIFIED HEART DISEASE SIBLINGS: ALIVE SON(S): ALIVE DAUGHTER(S): ALIVE 2019 YRS 4 SONS AND 1 DAUGHTER, ALIVE AND WELL. SOCIAL HISTORY GENERAL: TOBACCO USE ARE YOU A:CURRENT SMOKER ARE YOU INTERESTED IN QUITTING?NOT READY TO QUIT HOW MANY CIGARETTES A DAY DO YOU SMOKE?5 OR LESS HOW SOON AFTER YOU WAKE UP DO YOU SMOKE YOUR FIRST CIGARETTE?31-60 MIN HOW OFTEN DO YOU SMOKE CIGARETTES?EVERY DAY PATIENT COUNSELED ON THE DANGERS OF TOBACCO USE AND URGED TO QUIT:10/25/2020 LATEX QUESTIONNAIRE LATEX ALLERGY : HAVE YOU EVER DEVELOPED ANY TYPE OF REACTION AFTER HANDLING LATEX PRODUCTS SUCH RUBBER GLOVES, CONDOMS, DIAPHRAGMS, BALLOONS, SOCKS, OR UNDERWEAR?YES - PLEASE INDICATE :RUBBER GLOVES, CONDOMS LATEX ALLERGY : HAVE YOU EVER DEVELOPED ANY TYPE OF REACTION DURING OR AFTER DENTAL APPOINTMENT, VAGINAL/RECTAL EXAMINATION, SURGICAL PROCEDURE, OR ANY OTHER EXPOSURE?YES LATEX RISK : HAVE YOU EVER HAD ANY DIFFICULTY BREATHING OR HIVES AFTER EATING OR HANDLING ANY FRUITS, OR VEGETABLES; SUCH KIWI, BANANAS, STONE FRUITS, OR CHESTNUTSNO LATEX RISK : DO YOU HAVE A PREVIOUS PERSONAL HISTORY OF MORE THAN NINE SURGERIES, SPINA BIFIDA, OR REPEATED CATHERIZATIONS? NO LATEX RISK : ARE YOU FREQUENTLY EXPOSED TO LATEX PRODUCTS IN YOUR OCCUPATION?NO DATE ASKED : 01/18/2021 ALCOHOL USE: NO. LUNG CANCER SCREENING SMOKING STATUS:CURRENT SMOKER IS THE PATIENT BETWEEN THE AGE OF 55 AND 77?NO ALCOHOL SCREENING DID YOU HAVE A DRINK CONTAINING ALCOHOL IN THE PAST YEAR?YES HOW OFTEN DID YOU HAVE SIX OR MORE DRINKS ON ONE OCCASION IN THE PAST YEAR?NEVER (0 POINTS) HOW MANY DRINKS DID YOU HAVE ON A TYPICAL DAY WHEN YOU WERE DRINKING IN THE PAST YEAR?1 OR 2 (0 POINTS) HOW OFTEN DID YOU HAVE A DRINK CONTAINING ALCOHOL IN THE PAST YEAR?MONTHLY OR LESS (1 POINT) POINTS1 INTERPRETATIONNEGATIVE RECREATIONAL DRUG USE DRUG USE?NO CAFFEINE CAFFEINE USE?YES 2-3 DAILY LANGUAGE LANGUAGES SPOKEN:KYRGYZ LEARNING BARRIERS / SPECIAL NEEDS CHANGE FROM LAST VISIT?NO BARRIERS TO LEARNING?NO HEARING IMPAIRED?YES MINOR HEARING LOSS DUE TO VISION IMPAIRED?YES :CORRECTIVE LENSES COGNITIVELY IMPAIRED?NO READINESS TO LEARN?YES LEARNING PREFERENCES?YES :HANDOUTS, DEMONSTRATION/VERBAL INSTRUCTION, OTHER (PLEASE COMMENT) HANDS ON LEARNING CAPABILITIES PRESENT?YES EMOTIONAL BARRIERS?YES COMMENTSDOCUMENTED IN NOTES SECTION> PTSD SPECIAL DEVICES?YES :CANE ENGINEER THIRD ASSISTANT NEEDED?NO DOMESTIC VIOLENCE STATUS: DO YOU FEEL SAFE IN YOUR ENVIRONMENT?YES OCCUPATION: COMBAT , 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 EXERCISE: WALKS, DAILY. MARITAL STATUS: . OTHERS AT HOME: SPOUSE, CHILDREN, MOTHER. - HAS THE PATIENT BEEN EDUCATED REGARDING HIS/HER PLAN OF CARE?YES HAS THE PATIENT BEEN EDUCATED REGARDING PAIN, THE RISK FOR PAIN, THE IMPORTANCE OF EFFECTIVE PAIN MANAGEMENT, AND THE PAIN ASSESSMENT PROCESS?YES ADVANCE DIRECTIVE ADVANCE DIRECTIVE DISCUSSED WITH PATIENT:YES PT STATES HE DOES NOT HAVE ANY ADVANCED DIRECTIVES AND HE DECLINES INFORMATION ON HCP AT THIS TIME. HOSPITALIZATION/MAJOR DIAGNOSTIC PROCEDURE FOUR WEEKS VOLUNTARY ADMISSION TO [facility] 2011 VITAL SIGNS WT 192.0 LBS, HT 60 IN, BMI 37.49 INDEX, BP 128/75 MM HG, HR 101 /MIN, RR 18 /MIN, TEMP 98.2 F, OXYGEN SAT % 98%, SAFE IN ENV? (Y/N) YES, NA INITIALS AW 0847, REVIEWED BY: Poonam DEVLIN RN. EXAMINATION GENERAL: A HISTORY AND PHYSICAL EXAM ON THE PATIENT WAS DONE ON 01/11/2021 (DATE OF ORIGINAL ASSESSMENT) IN PREPARATION OF SURGERY/PROCEDURE. I HAVE NOW REASSESSED THIS PATIENT'S HEALTH STATUS AND PERFORMED AN UPDATED EXAM TODAY. ALL CHANGES IN THE PATIENT'S HISTORY, PHYSICAL EXAM, PRE-EXISTING CONDITONS, AND INDICATIONS/CONTRAINDICATIONS TO THE PLANNED PROCEDURE AND ANESTHESIA ARE DOCUMENTED AND EVALUATED BELOW. I ATTEST TO THE ADEQUACY AND APPROPRIATENESS OF MY ASSESSMENT, AND CONFIRM THE NECESSITY FOR THE PLANNED PROCEDURE. THE PATIENT IS ALERT, ORIENTED TIMES THREE AND COOPERATIVE. LUNGS ARE CLEAR TO AUSCULTATION. HEART SHOWS REGULAR RHYTHM, NO MURMURS AND NO GALLOPS. ASSESSMENTS SPONDYLOSIS WITHOUT MYELOPATHY OR RADICULOPATHY, LUMBOSACRAL REGION - M47.817 (PRIMARY) SPONDYLOSIS WITHOUT MYELOPATHY OR RADICULOPATHY, LUMBAR REGION - M47.816 TREATMENT SPONDYLOSIS WITHOUT MYELOPATHY OR RADICULOPATHY, LUMBOSACRAL REGION [facility] FACET BLOCK (PAIN)[id number] COMPLETION OF PROCEDURAL VISIT WHEN MEETS MARIEL SCHAEFER 01/19/2021 10:20:57 AM > CRITERIA MET. MEDICATION: VALIUM TAB 10MG ORALLY (DIAZEPAM)DIMITRI DOWELL 01/19/2021 8:46:19 AM > VERIFIED. MARIEL DEVLIN 01/19/2021 8:57:46 AM > ADMINISTERED. MEDICATION: OXYCODONE HCL TAB 10MG ORALLYDIMITRI DOWELL 01/19/2021 8:46:35 AM > VERIFIED MARIEL DEVLIN 01/19/2021 8:58:04 AM > ADMINISTERED. OTHERS NOTES: PAT COMPLETED 01/18/21 M RAOUL BOLES. PROCEDURES PAIN NURSING RECORD PROCEDURE IN ROOM 0916, PHYSICIAN IN ROOM 0945, START 0952, FINISH 1000, PHYSICIAN OUT OF ROOM 1002, OUT OF ROOM 1007, ECG NORMAL SINUS, PATIENT SHIELDED YES, SAFETY STRAP YES, PREP CHLOROPREP Poonam DEVLIN RN, DRESSING TEGADERM DR. WU LOC: MARIEL DEVLIN 01/19/2021 9:53:07 AM > , 1. ALERT, ORIENTED RESP: MARIEL DEVLIN 01/19/2021 9:53:11 AM > , 1. REGULAR, NO DYSPNEA COLOR: MARIEL DEVLIN 01/19/2021 9:53:15 AM > , 1. PINK SKIN: MARIEL DEVLIN 01/19/2021 9:53:18 AM > , 1. WARM, DRY POSITION: MARIEL DEVLIN 01/19/2021 9:53:22 AM > , 1. PRONE VITALS: MARIEL DEVLIN 01/19/2021 9:15:14 AM > 119/67, 91, 18, 96% DARIOMARIEL MATTHEWS 01/19/2021 9:22:29 AM > 135/87, 87, 18, 97% DARIOMARIEL MATTHEWS 01/19/2021 9:28:26 AM > 132/86, 89, 18, 95% DARIOMARIEL MATTHEWS 01/19/2021 9:43:01 AM > 131/79, 87, 16, 94% DARIOMARIEL MATTHEWS L 01/19/2021 9:58:32 AM > 142/89, 85, 16, 96% CLAUSMARIEL 01/19/2021 10:04:31 AM > 128/81, 91, 18, 95% MARIEL DEVLIN 01/19/2021 10:15:18 AM > 135/79, 95, 16, 92% COMPLETION OF PROCEDURE APPOINTMENT: POST PAIN 6, DRESSING SITE DRY AND INTACT, IV N/A, GAIT STEADY, TEACHING COMPLETED, PATIENT ACKNOWLEDGES UNDERSTANDING YES, PROCEDURE APPOINTMENT COMPLETED AT 1025 BY: Poonam DEVLIN RN PN LUMBAR FACET BLOCK THERAPEUTIC PRE PROCEDURE DIAGNOSIS LUMBAR SPONDYLOSIS, LUMBOSACRAL SPONDYLOSIS POST PROCEDURE DIAGNOSIS LUMBAR SPONDYLOSIS, LUMBOSACRAL SPONDYLOSIS PROCEDURE BILATERAL L4-L5 AND BILATERAL L5-S1 LUMBAR FACET THERAPEUTIC BLOCK SURGEON DR. CLEMENCIA WU [employer] SUPERVISOR NONE ANESTHESIA LOCAL PRE PROCEDURE NOTE THE PATIENT HAS A HISTORY OF CHRONIC LOW BACK PAIN. I EVALUATED THE PATIENT AND REVIEWED THE CHART. I WENT OVER THE RISKS, ALTERNATIVES, AND BENEFITS ASSOCIATED WITH THIS PROCEDURE. THE PATIENT WOULD LIKE TO PROCEED AND GIVES CONSENT TO PERFORM THE PROCEDURE. THE PATIENT DENIES UNEXPLAINABLE WEIGHT LOSS, FEVER, CHILLS, OR NEW CHANGES IN URINARY OR BOWEL CONTROL. THE PATIENT IS COVID-19 NEGATIVE DESCRIPTION OF PROCEDURE THE PATIENT WAS BROUGHT TO THE PROCEDURE ROOM AND PLACED IN THE PRONE POSITION. THE LUMBOSACRAL AREA WAS CLEANED WITH CHLORAPREP SOLUTION AND DRAPED ASEPTICALLY. THE PROCEDURE WAS DONE UNDER STERILE CONDITIONS. A TIMEOUT WAS PERFORMED WHERE THE CONSENTED SITE WAS VERIFIED WITH EVERYONE IN THE ROOM. UNDER FLUOROSCOPIC GUIDANCE, THE TARGET POINT WAS SELECTED AT THE RIGHT AND LEFT L4-L5 AND RIGHT AND LEFT L5-S1 FACET JOINTS. TARGET POINT WAS SELECTED AFTER LATERAL ROTATION AND TILT OF THE MAGNIFIER OF THE C-ARM. I CONFIRMED AGAIN THE SITE OF TARGET. LIDOCAINE 0.5% WAS USED TO NUMB THE SKIN AND THE SUBCUTANEOUS TISSUE BELOW IT. SPINAL NEEDLES, 22-GAUGE, WERE ADVANCED UNDER FLUOROSCOPIC GUIDANCE AND FOLLOWING PATIENT FEEDBACK UNTIL THE TARGETS WERE TOUCHED. THE POSITION OF THE NEEDLES WAS VERIFIED WITH AP AND LATERAL VIEWS. AFTER PROPER POSITION OF THE NEEDLES WAS ACHIEVED, ISOVUE-M DYE 30%, 0.1 ML, WAS INJECTED SHOWING ADEQUATE SPREAD OF THE DYE. KENALOG 10 MG WAS INJECTED AT EACH SITE. THEN, A SOLUTION OF 1.0 ML OF BUPIVACAINE 0.125% OF WAS USED TO FLUSH EACH SITE. THE MEDICATION WAS VERIFIED WITH THE NURSE. THERE WAS NO EVIDENCE OF BLOOD, PARESTHESIA OR CEREBROSPINAL FLUID DURING THE PROCEDURE. THE PATIENT WAS SENT TO THE RECOVERY ROOM. THE PATIENT WAS MOVING THE EXTREMITIES AND DOING WELL. THERE WERE NO COMPLICATIONS DURING THE PROCEDURE. ESTIMATED BLOOD LOSS WAS LESS THAN 5 ML. FLUOROSCOPY TIME WAS 54 SECONDS POST PROCEDURE NOTE DEPENDING ON THE RESULTS, CONSIDER GOING BACK TO THE NORMAL DOSE OF STEROIDS. THE PATIENT WILL BE SEEN IN A FOLLOW UP IN THE NEXT FEW WEEKS. I AM LOOKING FOR LONG LASTING RELIEF FOR THE PATIENT WITH THIS INTERVENTION. INSTRUCTIONS WERE GIVEN, QUESTIONS WERE ANSWERED, AND THE PATIENT EXPRESSED UNDERSTANDING AND AGREES WITH THE PLAN. I, ROGERS DONALD, DOCUMENTED THE ABOVE INFORMATION ACTING A SCRIBE FOR DR. WU. I HAVE REVIEWED THE ABOVE DOCUMENT, WRITTEN BY ROGERS DONALD, PROBATION AND PATROL AGENT, AND I VERIFY THAT IT IS ACCURATE PROCEDURE CODES 44546 INJ PARAVERT F JNT L/S 1 LEV, MODIFIERS: 50 [id number] INJ PARAVERT F JNT L/S 2 LEV, MODIFIERS: 50 DISPOSITION & COMMUNICATION FOLLOW UP FOLLOW UP WITH CHUCK BONER (REASON: POST BILATEAL THERAPEUTIC LUMBAR FACET BLOCK L4-L5, L5-S1) ELECTRONICALLY SIGNED BY CLEMENCIA WU MD, MD ON 01/24/2021 AT 11:42 AM EDT DISCLAIMER : THIS IS A VISIT SUMMARY EXTRACTED FROM THE [employer] CHART. IT IS NOT A COPY OF THE [employer] PROGRESS NOTE. MTDD
== END ==
LOC: M PAIN 08:30
PROVIDERS: ATTEND Anesthesiology
DX: M47.817 Spondylosis without myelopathy or radiculopathy, lumbosacral region (principal); M47.816 Spondylosis without myelopathy or radiculopathy, lumbar region; F43.10 Post-traumatic stress disorder, unspecified; R73.03 Prediabetes; G47.33 Obstructive sleep apnea (adult) (pediatric); F32.9 Major depressive disorder, single episode, unspecified; F41.9 Anxiety disorder, unspecified; G47.00 Insomnia, unspecified; N52.2 Drug-induced erectile dysfunction; M54.5 Low back pain; F17.210 Nicotine dependence, cigarettes, uncomplicated; Z79.891 Long term (current) use of opiate analgesic; Z79.899 Other long term (current) drug therapy; Z88.8 Allergy status to other drugs, medicaments and biological substances; Z91.018 Allergy to other foods; Z91.040 Latex allergy status
CPT/HCPCS: 64493; 64494; J3301; Q9967

== ENCOUNTER → 2021-02-02 | Outpatient (CLI) | payer OTHER ==
[~2021-02-02] MED LIST changes: -BUPIVACAINE HCL 0.25% 30ML VIAL As Ordered ONE; -ISOVUE-M 300 61% 15ML VIAL As Ordered ONE; -LIDOCAINE 1% SDV 30ML VIAL As Ordered ONE; -TRIAMCINOLONE ACETONIDE SUSP 40 MG/ML VIAL (J3301) As Ordered ONE; -diazePAM 5MG TABLET As Ordered ONE; -oxyCODONE 5MG TAB As Ordered ONE
--- NOTE | 2021-02-04 04:36 | ECWPNPC ---
PATIENT NAME: AB TURNER : 1980 GENDER: MALE VISIT DATE: 02/02/2021 DISCHARGE DATE: 02/02/21935 VISIT LOCKED DATE TIME: PHYSICIAN: AUGUST HUTCHINS RESOURCE: AUGUST HUTCHINS REASON FOR APPOINTMENT 1. POST BILATERAL THERAPEUTIC LUMBAR FACET BLOCK L4-L5, L5-S1 HISTORY OF PRESENT ILLNESS GENERAL: HPI 40-YEAR-OLD MALE IN FOR POST BILATERAL THERAPEUTIC LUMBAR FACET BLOCK FOLLOW-UP. PATIENT FEELS THE PROCEDURE WAS SUCCESSFUL OVERALL RATING HIS PAIN PREPROCEDURE AT A 7-8 OUT OF 10 AND POSTPROCEDURE AT A 5 OUT OF 10. HE FURTHER STATES THE PROCEDURE CONTINUES TO HELP HIM TODAY RATING HIS PAIN CURRENTLY AT A 5 OUT OF 10.. -. FALL RISK SCREENING: SCREENING FEW FALLS REPORTED IN THE LAST YEAR WITHOUT INJURY.. PAIN SCREENING: PATIENT HAS A COMPLAINT OF ACUTE OR CHRONIC PAIN :YES LOCATION OF PAIN:LOW BACK INTENSITY OF PAIN (SCALE OF 1 TO 10):5 WHAT DOES YOUR PAIN FEEL LIKE:CONTINOUS, SHARP DURATION:CONTINOUS, CONSTANT PAIN IS INCREASED BY:ACTIVITIES, PROLONGED STANDING PAIN IS DECREASED BY:USE OF PAIN MEDICATIONS REPOSITIONING NURSING NOTE: -. PAIN CENTER INTAKE QUESTIONS: DO YOU HAVE A HISTORY OF MRSA? :NO DO YOU TAKE A BLOOD THINNERS? :NO DO YOU HAVE ANY BLEEDING DISORDERS? :NO ANY NEW NUMBNESS OR WEAKNESS IN YOUR LEGS OR ARMS? :NO ANY PACEMAKER,DEFIBRILLATOR, OR DORSAL COLUMN STIMULATOR? :NO DO YOU HAVE ANY RASHES OR OPEN SORES? :NO ARE YOU ALLERGIC TO IV DYE? :NO ARE YOU DIABETIC? :NO ANY NEW PROBLEMS WITH YOUR MEDICATIONS? :NO HAVE YOU RECEIVED A VACCINE IN THE PAST 30 DAYS? :NO SECOND COVID VACCINATION 12/03/2020 DO YOU PLAN TO RECEIVE A VACCINE IN THE NEXT 21 DAYS? :NO DO YOU NEED ANY PRESCRIPTION? :NO DO YOU TAKE ANY IMMUNOSUPPRESSIVE MEDICATIONS? :NO DO YOU HAVE ANY KIDNEY OR LIVER DISEASE? :NO IS THERE A CHANCE YOU COULD BE ? :NO ARE YOU BREAST FEEDING? :NO CURRENT MEDICATIONS TAKING ZOLOFT 100 MG TABLET 1 TABLET ORALLY ONCE A DAY TAKING ARIPIPRAZOLE 20 MG TABLET 1 TABLET ORALLY ONCE A DAY TAKING HYDROXYZINE HCL 25 MG TABLET 1 TABLET NEEDED ORALLY EVERY 8 HRS, NOTES: NONE RECENT TAKING SERTRALINE HCL 100 MG TABLET 2 TABLET ORALLY ONCE A DAY TAKING BUPROPION HCL ER (SR) 150 MG TABLET EXTENDED RELEASE 12 HOUR 1 TABLET IN THE MORNING ORALLY ONCE A DAY TAKING PRAZOSIN HCL 2 MG CAPSULE 4 CAPSULE AT BEDTIME ORALLY ONCE A DAY TAKING PREGABALIN 75 MG CAPSULE 1 CAPSULE ORALLY BID, NOTES: 01/18/21 2100 TAKING ALBUTEROL SULFATE HFA 108 (90 BASE) MCG/ACT AEROSOL SOLUTION 2 PUFFS NEEDED INHALATION EVERY 4 HRS TAKING CARISOPRODOL 350 MG TABLET 1 TABLET NEEDED ORALLY BID, NOTES: 01/18/21 1800 TAKING TIOTROPIUM BROMIDE MONOHYDRATE 2.5 MCG/ACT AEROSOL SOLUTION 2 PUFFS INHALATION ONCE A DAY TAKING RIBOFLAVIN 100 MG CAPSULE 2 CAPSULES ORALLY BID TAKING SILDENAFIL CITRATE 100 MG TABLET 1 TABLET NEEDED ORALLY ONCE A DAY, NOTES: NONE RECENT TAKING OXYCODONE HCL 5 MG TABLET 1 TABLET NEEDED ORALLY BID MDD 2, NOTES: 01/18/21 1800 TAKING EPINEPHRINE PF 1 MG/ML SOLUTION DIRECTED INJECTION TAKING MULTIVITAMIN - TABLET 1 TABLET ORALLY ONCE A DAY TAKING BUDESONIDE-FORMOTEROL FUMARATE 160-4.5 MCG/ACT AEROSOL 2 PUFFS INHALATION TWICE A DAY TAKING ESZOPICLONE 2 MG TABLET 1 TABLET IMMEDIATELY BEFORE BEDTIME ORALLY ONCE A DAY TAKING MAGNESIUM OXIDE 400 MG TABLET 1 TABLET NEEDED ORALLY ONCE A DAY TAKING VITAMIN B COMPLEX - TABLET DIRECTED ORALLY DAILY NOT-TAKING FAMOTIDINE 20 MG TABLET 1 TABLET AT BEDTIME NEEDED ORALLY ONCE A DAY NOT-TAKING CARBOXYMETHYLCELLULOSE SODIUM 0.5 % SOLUTION 1 DROP OPHTHALMIC TID NOT-TAKING PENICILLIN V POTASSIUM 250 MG TABLET 1 TABLET ORALLY QID NOT-TAKING NICORETTE 2 MG GUM 1 PIECE FOR 30 MINUTE NEEDED MOUTH/THROAT 24 TIME(S) A DAY MEDICATION LIST REVIEWED AND RECONCILED WITH THE PATIENT PAST MEDICAL HISTORY PTSD BORDERLINE DIABETIC TBI (2010, 2008, 2006) GANESH WITH BIPAP WITH 3 LITER BLEED IN DEPRESSION ANXIETY INSOMNIA ED (DUE TO MEDICATIONS) HYPOXIA (CO2 RETENTION) SECONDARY TO GANESH; TOXIN EXPOSURE WHILE DEPLOYED LOW BACK PAIN ALLERGIES KETOROLAC TROMETHAMINE: HIVES - ALLERGY LATEX (FOR ALLERGY USE ONLY): HIVES - ALLERGY WHEAT: HIVES - ALLERGY SOCIAL HISTORY GENERAL: TOBACCO USE ARE YOU A:CURRENT SMOKER ARE YOU INTERESTED IN QUITTING?NOT READY TO QUIT HOW MANY CIGARETTES A DAY DO YOU SMOKE?5 OR LESS HOW SOON AFTER YOU WAKE UP DO YOU SMOKE YOUR FIRST CIGARETTE?31-60 MIN HOW OFTEN DO YOU SMOKE CIGARETTES?EVERY DAY PATIENT COUNSELED ON THE DANGERS OF TOBACCO USE AND URGED TO QUIT:02/02/2021 LATEX QUESTIONNAIRE LATEX ALLERGY : HAVE YOU EVER DEVELOPED ANY TYPE OF REACTION AFTER HANDLING LATEX PRODUCTS SUCH RUBBER GLOVES, CONDOMS, DIAPHRAGMS, BALLOONS, SOCKS, OR UNDERWEAR?YES - PLEASE INDICATE :RUBBER GLOVES, CONDOMS LATEX ALLERGY : HAVE YOU EVER DEVELOPED ANY TYPE OF REACTION DURING OR AFTER DENTAL APPOINTMENT, VAGINAL/RECTAL EXAMINATION, SURGICAL PROCEDURE, OR ANY OTHER EXPOSURE?YES LATEX RISK : HAVE YOU EVER HAD ANY DIFFICULTY BREATHING OR HIVES AFTER EATING OR HANDLING ANY FRUITS, OR VEGETABLES; SUCH KIWI, BANANAS, STONE FRUITS, OR CHESTNUTSNO LATEX RISK : DO YOU HAVE A PREVIOUS PERSONAL HISTORY OF MORE THAN NINE SURGERIES, SPINA BIFIDA, OR REPEATED CATHERIZATIONS? NO LATEX RISK : ARE YOU FREQUENTLY EXPOSED TO LATEX PRODUCTS IN YOUR OCCUPATION?NO DATE ASKED : 02/02/2021 ALCOHOL USE: NO. LUNG CANCER SCREENING SMOKING STATUS:CURRENT SMOKER IS THE PATIENT BETWEEN THE AGE OF 55 AND 77?NO ALCOHOL SCREENING DID YOU HAVE A DRINK CONTAINING ALCOHOL IN THE PAST YEAR?YES HOW OFTEN DID YOU HAVE SIX OR MORE DRINKS ON ONE OCCASION IN THE PAST YEAR?NEVER (0 POINTS) HOW MANY DRINKS DID YOU HAVE ON A TYPICAL DAY WHEN YOU WERE DRINKING IN THE PAST YEAR?1 OR 2 (0 POINTS) HOW OFTEN DID YOU HAVE A DRINK CONTAINING ALCOHOL IN THE PAST YEAR?MONTHLY OR LESS (1 POINT) POINTS1 INTERPRETATIONNEGATIVE RECREATIONAL DRUG USE DRUG USE?NO CAFFEINE CAFFEINE USE?YES 2-3 DAILY LANGUAGE LANGUAGES SPOKEN:BENGALI LEARNING BARRIERS / SPECIAL NEEDS CHANGE FROM LAST VISIT?NO BARRIERS TO LEARNING?NO HEARING IMPAIRED?YES MINOR HEARING LOSS DUE TO VISION IMPAIRED?YES :CORRECTIVE LENSES COGNITIVELY IMPAIRED?NO READINESS TO LEARN?YES LEARNING PREFERENCES?YES :HANDOUTS, DEMONSTRATION/VERBAL INSTRUCTION, OTHER (PLEASE COMMENT) HANDS ON LEARNING CAPABILITIES PRESENT?YES EMOTIONAL BARRIERS?YES COMMENTSDOCUMENTED IN NOTES SECTION> PTSD SPECIAL DEVICES?YES :CANE TRADE UNION OFFICIAL NEEDED?NO DOMESTIC VIOLENCE STATUS: DO YOU FEEL SAFE IN YOUR ENVIRONMENT?YES OCCUPATION: COMBAT , 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 EXERCISE: WALKS, DAILY. MARITAL STATUS: . OTHERS AT HOME: SPOUSE, CHILDREN, MOTHER. - HAS THE PATIENT BEEN EDUCATED REGARDING HIS/HER PLAN OF CARE?YES HAS THE PATIENT BEEN EDUCATED REGARDING PAIN, THE RISK FOR PAIN, THE IMPORTANCE OF EFFECTIVE PAIN MANAGEMENT, AND THE PAIN ASSESSMENT PROCESS?YES ADVANCE DIRECTIVE ADVANCE DIRECTIVE DISCUSSED WITH PATIENT:YES PT STATES HE DOES NOT HAVE ANY ADVANCED DIRECTIVES AND HE DECLINES INFORMATION ON HCP AT THIS TIME. REVIEW OF SYSTEMS CONSTITUTIONAL: ANY RECENT FEVER NO . CHILLS NO . WEIGHT CHANGE OF UNKNOWN REASONS NO . GASTROENTEROLOGY: NEW UNEXPLAINABLE CHANGES IN BOWEL CONTROL NO . CONSTIPATION NO . GENITOURINARY: ANY NEW CHANGE IN BLADDER CONTROL? NO . NEUROLOGY: NEW ONSET DIZZINESS OR NEUROLOGICAL CHANGES NOT MENTIONED NO . NEW NUMBNESS OR PAIN PATTERNS NOT MENTIONED AND PERTINENT TO TODAY'S VISIT NO . CARDIOLOGY: NEW CHEST PRESSURE NO . PATIENT DENIES NO . RESPIRATORY: UNEXPLAINABLE COUGH NO . NEW SHORTNESS OF BREATH NO . VITAL SIGNS WT 193.8 LBS, HT 60 IN, BMI 37.84 INDEX, BP 129/80 MM HG, HR 100 /MIN, RR 18 /MIN, TEMP 98.2 F, OXYGEN SAT % 95%, SAFE IN ENV? (Y/N) YES, NA INITIALS WA 09:22, REVIEWED BY: TALIB GRESHAM MA. EXAMINATION GENERAL EXAMINATION: GENERALNO ACUTE DISTRESS, WELL NOURISHED AND HYDRATED. PSYCHAPPROPRIATE MOOD AND AFFECT . LUNGS:CLEAR TO AUSCULTATION BILATERALLY, NO WHEEZES, RHONCHI, RALES. HEART:NO MURMURS, REGULAR RATE AND RHYTHM. ASSESSMENTS OTHER CHRONIC PAIN - G89.29 (PRIMARY) SPONDYLOSIS WITHOUT MYELOPATHY OR RADICULOPATHY, LUMBOSACRAL REGION - M47.817, RISK: (NULL) TREATMENT OTHER CHRONIC PAIN PAIN PROCEDURE LOGDATE OF WNKECEKYE98/20/2021PROCEDURE:BILATERAL THERAPEUTIC LUMBAR FACET BLOCK L4-L5, L5-Q3QBIDZX OF PRE SEDATEVALIUM 10MG; OXYCODONE 10MGRESULT:PRE 7-8/10 POST 510 CONTINUES TO HELP TODAY SPONDYLOSIS WITHOUT MYELOPATHY OR RADICULOPATHY, LUMBOSACRAL REGION NOTES: 40-YEAR-OLD MALE IN FOR POST BILATERAL THERAPEUTIC LUMBAR FACET BLOCK FOLLOW-UP. GIVEN PRESENTING SYMPTOMS RECOMMEND FOLLOW-UP IN 2 MONTHS. PATIENT HAS EXPRESSED UNDERSTANDING OF AND WAS IN AGREEMENT WITH TREATMENT PLAN. GIVEN TIME TO ASK QUESTIONS AND EXPRESS CONCERNS. PROCEDURE CODES FA211 ESTABILISHED PATIENT [facility] CHARGE DISPOSITION & COMMUNICATION FOLLOW UP 2 MONTHS (REASON: LOW BACK PAIN ) ELECTRONICALLY SIGNED BY REDDY RAE ON 02/03/2021 AT 08:28 AM EDT DISCLAIMER : THIS IS A VISIT SUMMARY EXTRACTED FROM THE [employer] CHART. IT IS NOT A COPY OF THE [employer] PROGRESS NOTE. NEIL
== END ==
LOC: M PAIN 09:15
PROVIDERS: ATTEND Family Medicine
DX: G89.29 Other chronic pain (principal); M47.817 Spondylosis without myelopathy or radiculopathy, lumbosacral region; G47.33 Obstructive sleep apnea (adult) (pediatric); G47.00 Insomnia, unspecified; F17.210 Nicotine dependence, cigarettes, uncomplicated; Z86.59 Personal history of other mental and behavioral disorders; Z87.820 Personal history of traumatic brain injury; Z88.6 Allergy status to analgesic agent; Z91.018 Allergy to other foods; Z91.040 Latex allergy status; Z79.899 Other long term (current) drug therapy

== ENCOUNTER → 2021-04-04 | Outpatient (CLI) | payer OTHER ==
--- NOTE | 2021-04-06 05:53 | ECWPNPC ---
PATIENT NAME: AB TURNER : 1980 GENDER: MALE VISIT DATE: 04/04/2021 DISCHARGE DATE: 04/04/21930 VISIT LOCKED DATE TIME: PHYSICIAN: AUGUST HUTCHINS RESOURCE: AUGUST HUTCHINS REASON FOR APPOINTMENT 1. LOW BACK PAIN HISTORY OF PRESENT ILLNESS DEPRESSION SCREENING: PHQ-9 LITTLE INTEREST OR PLEASURE IN DOING THINGSMORE THAN HALF THE DAYS FEELING DOWN, DEPRESSED, OR HOPELESSNEARLY EVERY DAY TROUBLE FALLING OR STAYING ASLEEP, OR SLEEPING TOO MUCHNEARLY EVERY DAY FEELING TIRED OR HAVING LITTLE ENERGYNEARLY EVERY DAY POOR APPETITE OR OVEREATING NOT AT ALL FEELING BAD ABOUT YOURSELF-OR THAT YOU ARE A FAILURE OR HAVE LET YOURSELF OR YOUR FAMILY DOWN MORE THAN HALF THE DAYS TROUBLE CONCENTRATING ON THINGS, SUCH READING THE NEWSPAPER OR WATCHING TELEVISION NEARLY EVERY DAY MOVING OR SPEAKING SO SLOWLY THAT OTHER PEOPLE COULD HAVE NOTICED. OR THE OPPOSITE- BEING SO FIDGETY OR RESTLESS THAT YOU HAVE BEEN MOVING AROUND A LOT MORE THAN USUALNEARLY EVERY DAY THOUGHTS THAT YOU WOULD BE BETTER OFF , OR OF HURTING YOURSELF IN SOME WAY?NOT AT ALL TOTAL SCORE:19 INTERPRETATIONMODERATELY SEVERE DEPRESSION PHQ-2 (2015 EDITION) LITTLE INTEREST OR PLEASURE IN DOING THINGS?MORE THAN HALF THE DAYS FEELING DOWN, DEPRESSED, OR HOPELESS?NEARLY EVERY DAY TOTAL SCORE5 GENERAL: HPI 41-YEAR-OLD MALE IN FOR CHRONIC PAIN FOLLOW-UP. HE RATES HIS PAIN CURRENTLY A 6 OUT OF 10 AND DESCRIBES IT CONTINUOUS, SHARP, STABBING, AND INTERMITTENT. PATIENT HAS HAD LUMBAR FACET BLOCKS IN THE PAST AND ADMITS THAT IT REDUCED SYMPTOMS UP UNTIL RECENTLY . -. FALL RISK SCREENING: SCREENING : NO FALLS REPORTED IN THE LAST YEAR. PAIN SCREENING: PATIENT HAS A COMPLAINT OF ACUTE OR CHRONIC PAIN :YES LOCATION OF PAIN:LOW BACK INTENSITY OF PAIN (SCALE OF 1 TO 10):6 WHAT DOES YOUR PAIN FEEL LIKE:CONTINOUS, SHARP, STABBING INTERMITTENT IN THE EVENING DURATION:CONSTANT, INTERMITTENT PAIN IS INCREASED BY:ACTIVITIES, PROLONGED STANDING PAIN IS DECREASED BY:USE OF PAIN MEDICATIONS, SITTING REPOSITIONING NURSING NOTE: -. PAIN CENTER INTAKE QUESTIONS: DO YOU HAVE A HISTORY OF MRSA? :NO DO YOU TAKE A BLOOD THINNERS? :NO DO YOU HAVE ANY BLEEDING DISORDERS? :NO ANY NEW NUMBNESS OR WEAKNESS IN YOUR LEGS OR ARMS? :NO ANY PACEMAKER,DEFIBRILLATOR, OR DORSAL COLUMN STIMULATOR? :NO DO YOU HAVE ANY RASHES OR OPEN SORES? :NO ARE YOU ALLERGIC TO IV DYE? :NO ARE YOU DIABETIC? :NO ANY NEW PROBLEMS WITH YOUR MEDICATIONS? :NO HAVE YOU RECEIVED A VACCINE IN THE PAST 30 DAYS? :NO SECOND COVID VACCINATION 12/03/2020 DO YOU PLAN TO RECEIVE A VACCINE IN THE NEXT 21 DAYS? :NO DO YOU NEED ANY PRESCRIPTION? :NO DO YOU TAKE ANY IMMUNOSUPPRESSIVE MEDICATIONS? :NO DO YOU HAVE ANY KIDNEY OR LIVER DISEASE? :NO IS THERE A CHANCE YOU COULD BE ? :NO ARE YOU BREAST FEEDING? :NO CURRENT MEDICATIONS TAKING ZOLOFT 100 MG TABLET 1 TABLET ORALLY ONCE A DAY TAKING ARIPIPRAZOLE 20 MG TABLET 1 TABLET ORALLY ONCE A DAY TAKING HYDROXYZINE HCL 25 MG TABLET 1 TABLET NEEDED ORALLY EVERY 8 HRS, NOTES: NONE RECENT TAKING SERTRALINE HCL 100 MG TABLET 2 TABLET ORALLY ONCE A DAY TAKING BUPROPION HCL ER (SR) 150 MG TABLET EXTENDED RELEASE 12 HOUR 1 TABLET IN THE MORNING ORALLY ONCE A DAY TAKING PRAZOSIN HCL 2 MG CAPSULE 4 CAPSULE AT BEDTIME ORALLY ONCE A DAY TAKING PREGABALIN 75 MG CAPSULE 1 CAPSULE ORALLY BID, NOTES: 01/18/21 2100 TAKING ALBUTEROL SULFATE HFA 108 (90 BASE) MCG/ACT AEROSOL SOLUTION 2 PUFFS NEEDED INHALATION EVERY 4 HRS TAKING CARISOPRODOL 350 MG TABLET 1 TABLET NEEDED ORALLY BID, NOTES: 01/18/21 1800 TAKING TIOTROPIUM BROMIDE MONOHYDRATE 2.5 MCG/ACT AEROSOL SOLUTION 2 PUFFS INHALATION ONCE A DAY TAKING RIBOFLAVIN 100 MG CAPSULE 2 CAPSULES ORALLY BID TAKING SILDENAFIL CITRATE 100 MG TABLET 1 TABLET NEEDED ORALLY ONCE A DAY, NOTES: NONE RECENT TAKING OXYCODONE HCL 5 MG TABLET 1 TABLET NEEDED ORALLY BID MDD 2, NOTES: 01/18/21 1800 TAKING EPINEPHRINE PF 1 MG/ML SOLUTION DIRECTED INJECTION TAKING MULTIVITAMIN - TABLET 1 TABLET ORALLY ONCE A DAY TAKING BUDESONIDE-FORMOTEROL FUMARATE 160-4.5 MCG/ACT AEROSOL 2 PUFFS INHALATION TWICE A DAY TAKING ESZOPICLONE 2 MG TABLET 1 TABLET IMMEDIATELY BEFORE BEDTIME ORALLY ONCE A DAY TAKING MAGNESIUM OXIDE 400 MG TABLET 1 TABLET NEEDED ORALLY ONCE A DAY TAKING VITAMIN B COMPLEX - TABLET DIRECTED ORALLY DAILY NOT-TAKING FAMOTIDINE 20 MG TABLET 1 TABLET AT BEDTIME NEEDED ORALLY ONCE A DAY NOT-TAKING CARBOXYMETHYLCELLULOSE SODIUM 0.5 % SOLUTION 1 DROP OPHTHALMIC TID NOT-TAKING PENICILLIN V POTASSIUM 250 MG TABLET 1 TABLET ORALLY QID NOT-TAKING NICORETTE 2 MG GUM 1 PIECE FOR 30 MINUTE NEEDED MOUTH/THROAT 24 TIME(S) A DAY MEDICATION LIST REVIEWED AND RECONCILED WITH THE PATIENT PAST MEDICAL HISTORY PTSD BORDERLINE DIABETIC TBI (2010, 2008, 2006) GANESH WITH BIPAP WITH 3 LITER BLEED IN DEPRESSION ANXIETY INSOMNIA ED (DUE TO MEDICATIONS) HYPOXIA (CO2 RETENTION) SECONDARY TO GANESH; TOXIN EXPOSURE WHILE DEPLOYED LOW BACK PAIN ALLERGIES KETOROLAC TROMETHAMINE: HIVES - ALLERGY LATEX (FOR ALLERGY USE ONLY): HIVES - ALLERGY WHEAT: HIVES - ALLERGY SOCIAL HISTORY GENERAL: TOBACCO USE ARE YOU A:CURRENT SMOKER ARE YOU INTERESTED IN QUITTING?THINKING ABOUT QUITTING PREVIOUS QUIT ATTEMPTS?YES, WITHIN THE LAST 6 MONTHS. COUNSELED THE PATIENT ON SMOKING CESSATION, EDUCATION [id number]/03/2021 HOW MANY CIGARETTES A DAY DO YOU SMOKE?5 OR LESS HOW SOON AFTER YOU WAKE UP DO YOU SMOKE YOUR FIRST CIGARETTE?31-60 MIN HOW OFTEN DO YOU SMOKE CIGARETTES?EVERY DAY PATIENT COUNSELED ON THE DANGERS OF TOBACCO USE AND URGED TO QUIT:02/02/2021 LATEX QUESTIONNAIRE LATEX ALLERGY : HAVE YOU EVER DEVELOPED ANY TYPE OF REACTION AFTER HANDLING LATEX PRODUCTS SUCH RUBBER GLOVES, CONDOMS, DIAPHRAGMS, BALLOONS, SOCKS, OR UNDERWEAR?YES - PLEASE INDICATE :RUBBER GLOVES, CONDOMS LATEX ALLERGY : HAVE YOU EVER DEVELOPED ANY TYPE OF REACTION DURING OR AFTER DENTAL APPOINTMENT, VAGINAL/RECTAL EXAMINATION, SURGICAL PROCEDURE, OR ANY OTHER EXPOSURE?YES LATEX RISK : HAVE YOU EVER HAD ANY DIFFICULTY BREATHING OR HIVES AFTER EATING OR HANDLING ANY FRUITS, OR VEGETABLES; SUCH KIWI, BANANAS, STONE FRUITS, OR CHESTNUTSNO LATEX RISK : DO YOU HAVE A PREVIOUS PERSONAL HISTORY OF MORE THAN NINE SURGERIES, SPINA BIFIDA, OR REPEATED CATHERIZATIONS? NO LATEX RISK : ARE YOU FREQUENTLY EXPOSED TO LATEX PRODUCTS IN YOUR OCCUPATION?NO DATE ASKED : 04/04/2021 ALCOHOL USE: NO. LUNG CANCER SCREENING SMOKING STATUS:CURRENT SMOKER IS THE PATIENT BETWEEN THE AGE OF 55 AND 77?NO ALCOHOL SCREENING DID YOU HAVE A DRINK CONTAINING ALCOHOL IN THE PAST YEAR?YES HOW OFTEN DID YOU HAVE A DRINK CONTAINING ALCOHOL IN THE PAST YEAR?MONTHLY OR LESS (1 POINT) HOW MANY DRINKS DID YOU HAVE ON A TYPICAL DAY WHEN YOU WERE DRINKING IN THE PAST YEAR?1 OR 2 (0 POINTS) HOW OFTEN DID YOU HAVE SIX OR MORE DRINKS ON ONE OCCASION IN THE PAST YEAR?NEVER (0 POINTS) POINTS1 INTERPRETATIONNEGATIVE RECREATIONAL DRUG USE DRUG USE?NO CAFFEINE CAFFEINE USE?YES 2-3 DAILY LANGUAGE LANGUAGES SPOKEN:PUERTO RICAN LEARNING BARRIERS / SPECIAL NEEDS CHANGE FROM LAST VISIT?YES BARRIERS TO LEARNING?NO HEARING IMPAIRED?YES MINOR HEARING LOSS DUE TO VISION IMPAIRED?YES :CORRECTIVE LENSES COGNITIVELY IMPAIRED?NO READINESS TO LEARN?YES LEARNING PREFERENCES?YES :HANDOUTS, DEMONSTRATION/VERBAL INSTRUCTION, OTHER (PLEASE COMMENT) HANDS ON LEARNING CAPABILITIES PRESENT?YES EMOTIONAL BARRIERS?YES COMMENTSDOCUMENTED IN NOTES SECTION> PTSD SPECIAL DEVICES?YES :CANE KNEE AND BACK [employer] CLAIM REPRESENTATIVE NEEDED?NO DOMESTIC VIOLENCE STATUS: DO YOU FEEL SAFE IN YOUR ENVIRONMENT?YES OCCUPATION: COMBAT , 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 EXERCISE: WALKS, DAILY. MARITAL STATUS: . OTHERS AT HOME: SPOUSE, CHILDREN, MOTHER. - HAS THE PATIENT BEEN EDUCATED REGARDING HIS/HER PLAN OF CARE?YES HAS THE PATIENT BEEN EDUCATED REGARDING PAIN, THE RISK FOR PAIN, THE IMPORTANCE OF EFFECTIVE PAIN MANAGEMENT, AND THE PAIN ASSESSMENT PROCESS?YES ADVANCE DIRECTIVE ADVANCE DIRECTIVE DISCUSSED WITH PATIENT:YES PT STATES HE DOES NOT HAVE ANY ADVANCED DIRECTIVES AND HE DECLINES INFORMATION ON HCP AT THIS TIME. REVIEW OF SYSTEMS CONSTITUTIONAL: ANY RECENT FEVER NO . CHILLS NO . WEIGHT CHANGE OF UNKNOWN REASONS NO . GASTROENTEROLOGY: NEW UNEXPLAINABLE CHANGES IN BOWEL CONTROL NO . CONSTIPATION NO . GENITOURINARY: ANY NEW CHANGE IN BLADDER CONTROL? NO . NEUROLOGY: NEW ONSET DIZZINESS OR NEUROLOGICAL CHANGES NOT MENTIONED NO . NEW NUMBNESS OR PAIN PATTERNS NOT MENTIONED AND PERTINENT TO TODAY'S VISIT NO . CARDIOLOGY: NEW CHEST PRESSURE NO . PATIENT DENIES NO . RESPIRATORY: UNEXPLAINABLE COUGH NO . NEW SHORTNESS OF BREATH NO . VITAL SIGNS WT 195.2 LBS, WT-KG 88.54 KG, HT 60 IN, BMI 38.12 INDEX, BP 133/73 MM HG, HR 104 /MIN, RR 18 /MIN, TEMP 98.2 F, OXYGEN SAT % 95%, SAFE IN ENV? (Y/N) YES, NA INITIALS AW 0907, REVIEWED BY: TALIB GRESHAM MA. EXAMINATION GENERAL EXAMINATION: GENERALNO ACUTE DISTRESS, WELL NOURISHED AND HYDRATED. PSYCHAPPROPRIATE MOOD AND AFFECT . LUNGS:CLEAR TO AUSCULTATION BILATERALLY, NO WHEEZES, RHONCHI, RALES. HEART:NO MURMURS, REGULAR RATE AND RHYTHM. ASSESSMENTS SPONDYLOSIS WITHOUT MYELOPATHY OR RADICULOPATHY, LUMBOSACRAL REGION - M47.817 (PRIMARY) TREATMENT SPONDYLOSIS WITHOUT MYELOPATHY OR RADICULOPATHY, LUMBOSACRAL REGION NOTES: 41-YEAR-OLD MALE IN FOR CHRONIC PAIN FOLLOW-UP. DISCUSSED POTENTIAL PROCEDURES WITH PATIENT WHICH WERE DECLINED AT THIS TIME. GIVEN PRESENTING SYMPTOMS RECOMMEND FOLLOW-UP IN 1 MONTH. PATIENT HAS EXPRESSED UNDERSTANDING OF AND WAS IN AGREEMENT WITH TREATMENT PLAN. GIVEN TIME TO ASK QUESTIONS AND EXPRESS CONCERNS. OTHERS CLINICAL NOTES: PATIENT SCORED A 19 ON PHQ9. PATIENT STATES HE "IS BEING SEEN BY THREE OTHER PROVIDERS FOR THIS." PAIN CLINIC PROVIDER NOTIFIED. PRINTED INFORMATION PROVIDED FOR PATIENT. JAMIE GRESHAM MA. PROCEDURE CODES FA211 ESTABILISHED PATIENT [facility] FACILITY CHARGE DISPOSITION & COMMUNICATION FOLLOW UP 4 WEEKS (REASON: LOW BACK PAIN ) ELECTRONICALLY SIGNED BY REDDY RAE ON 04/05/2021 AT 08:56 AM EDT DISCLAIMER : THIS IS A VISIT SUMMARY EXTRACTED FROM THE [employer] CHART. IT IS NOT A COPY OF THE [employer] PROGRESS NOTE. NEIL
== END ==
LOC: M PAIN 09:15
PROVIDERS: ATTEND Family Medicine
DX: M47.817 Spondylosis without myelopathy or radiculopathy, lumbosacral region (principal); G89.29 Other chronic pain; G47.33 Obstructive sleep apnea (adult) (pediatric); F17.210 Nicotine dependence, cigarettes, uncomplicated; Z87.820 Personal history of traumatic brain injury; Z86.59 Personal history of other mental and behavioral disorders; Z88.6 Allergy status to analgesic agent; Z91.018 Allergy to other foods; Z91.040 Latex allergy status; Z79.899 Other long term (current) drug therapy

== ENCOUNTER → 2021-05-26 | Outpatient (CLI) | payer OTHER | LOC: M PAIN 11:30 | PROVIDERS: ATTEND Anesthesiology | DX: M79.10 Myalgia, unspecified site (principal); M47.816 Spondylosis without myelopathy or radiculopathy, lumbar region; G47.33 Obstructive sleep apnea (adult) (pediatric); F17.210 Nicotine dependence, cigarettes, uncomplicated; Z87.820 Personal history of traumatic brain injury; Z86.59 Personal history of other mental and behavioral disorders; Z88.6 Allergy status to analgesic agent; Z91.018 Allergy to other foods; Z91.040 Latex allergy status; Z79.899 Other long term (current) drug therapy ==

== ENCOUNTER → 2021-10-17 | Outpatient (CLI) | payer OTHER | LOC: M PAIN 11:00 | PROVIDERS: ATTEND Nurse Practitioner Family | DX: M79.10 Myalgia, unspecified site (principal); G47.33 Obstructive sleep apnea (adult) (pediatric); F17.210 Nicotine dependence, cigarettes, uncomplicated; Z86.59 Personal history of other mental and behavioral disorders; Z87.820 Personal history of traumatic brain injury; Z88.6 Allergy status to analgesic agent; Z91.018 Allergy to other foods; Z91.040 Latex allergy status; Z79.899 Other long term (current) drug therapy ==

== ENCOUNTER → 2022-04-22 | Outpatient (CLI) | payer OTHER | LOC: M LABSMTC 10:31 | PROVIDERS: ATTEND Anesthesiology | DX: Z01.812 Encounter for preprocedural laboratory examination (principal); Z20.822 Contact with and (suspected) exposure to COVID-19 ==

== ENCOUNTER → 2022-04-26 | Outpatient (CLI) | payer OTHER ==
[~2022-04-26] MED LIST changes: +BUPIVACAINE HCL 0.25% 10ML VIAL As Ordered ONE; +BUPIVACAINE HCL 0.25% 30ML VIAL As Ordered ONE; +TRIAMCINOLONE ACETONIDE SUSP 40 MG/ML VIAL (J3301) As Ordered ONE; +diazePAM 5MG TABLET As Ordered ONE; +oxyCODONE 5MG TAB As Ordered ONE
== END ==
LOC: M PAIN 09:30
PROVIDERS: ATTEND Anesthesiology
DX: M79.18 Myalgia, other site (principal); G89.29 Other chronic pain; G47.33 Obstructive sleep apnea (adult) (pediatric); F17.210 Nicotine dependence, cigarettes, uncomplicated; Z86.59 Personal history of other mental and behavioral disorders; Z87.820 Personal history of traumatic brain injury; Z88.6 Allergy status to analgesic agent; Z91.018 Allergy to other foods; Z91.040 Latex allergy status; Z79.899 Other long term (current) drug therapy
CPT/HCPCS: 20552; J3301

== ENCOUNTER → 2022-05-29 | Outpatient (CLI) | payer OTHER ==
[~2022-05-29] MED LIST changes: -BUPIVACAINE HCL 0.25% 10ML VIAL As Ordered ONE; -BUPIVACAINE HCL 0.25% 30ML VIAL As Ordered ONE; -TRIAMCINOLONE ACETONIDE SUSP 40 MG/ML VIAL (J3301) As Ordered ONE; -diazePAM 5MG TABLET As Ordered ONE; -oxyCODONE 5MG TAB As Ordered ONE
== END ==
LOC: M PAIN 11:30
PROVIDERS: ATTEND Nurse Practitioner Family
DX: M79.10 Myalgia, unspecified site (principal); G89.29 Other chronic pain; G47.33 Obstructive sleep apnea (adult) (pediatric); F17.210 Nicotine dependence, cigarettes, uncomplicated; Z87.820 Personal history of traumatic brain injury; Z86.59 Personal history of other mental and behavioral disorders; Z88.6 Allergy status to analgesic agent; Z91.018 Allergy to other foods; Z91.040 Latex allergy status; Z79.899 Other long term (current) drug therapy

== ENCOUNTER → 2022-08-21 | Outpatient (CLI) | payer OTHER | LOC: M LABSMTC 10:58 | PROVIDERS: ATTEND Anesthesiology | DX: Z01.812 Encounter for preprocedural laboratory examination (principal); Z20.822 Contact with and (suspected) exposure to COVID-19 ==

== ENCOUNTER → 2022-08-23 | Outpatient (CLI) | payer OTHER ==
[~2022-08-23] MED LIST changes: +BUPIVACAINE HCL 0.25% 10ML VIAL As Ordered ONE; +BUPIVACAINE HCL 0.25% 30ML VIAL As Ordered ONE; +TRIAMCINOLONE ACETONIDE SUSP 40MG/ML 1ML VIAL As Ordered ONE; +diazePAM 5MG TABLET As Ordered ONE; +oxyCODONE 5MG TAB As Ordered ONE
== END ==
LOC: M PAIN 13:45
PROVIDERS: ATTEND Anesthesiology
DX: M79.18 Myalgia, other site (principal); G89.29 Other chronic pain; G47.30 Sleep apnea, unspecified; F17.210 Nicotine dependence, cigarettes, uncomplicated; Z86.59 Personal history of other mental and behavioral disorders; Z87.820 Personal history of traumatic brain injury; Z88.6 Allergy status to analgesic agent; Z91.018 Allergy to other foods; Z91.040 Latex allergy status; Z79.899 Other long term (current) drug therapy
CPT/HCPCS: 20553; J3301

== ENCOUNTER → 2022-09-20 | Outpatient (CLI) | payer OTHER ==
[~2022-09-20] MED LIST changes: -BUPIVACAINE HCL 0.25% 10ML VIAL As Ordered ONE; -BUPIVACAINE HCL 0.25% 30ML VIAL As Ordered ONE; -TRIAMCINOLONE ACETONIDE SUSP 40MG/ML 1ML VIAL As Ordered ONE; -diazePAM 5MG TABLET As Ordered ONE; -oxyCODONE 5MG TAB As Ordered ONE
== END ==
LOC: M PAIN 11:15
PROVIDERS: ATTEND Nurse Practitioner Family
DX: M79.10 Myalgia, unspecified site (principal); G89.29 Other chronic pain; G47.33 Obstructive sleep apnea (adult) (pediatric); F17.210 Nicotine dependence, cigarettes, uncomplicated; Z86.59 Personal history of other mental and behavioral disorders; Z87.820 Personal history of traumatic brain injury; Z88.6 Allergy status to analgesic agent; Z91.018 Allergy to other foods; Z91.040 Latex allergy status; Z79.899 Other long term (current) drug therapy

== ENCOUNTER → 2022-11-20 | Outpatient (CLI) | payer OTHER | LOC: M PAIN 10:30 | PROVIDERS: ATTEND Nurse Practitioner Family | DX: M79.10 Myalgia, unspecified site (principal); G89.29 Other chronic pain; G47.30 Sleep apnea, unspecified; F17.210 Nicotine dependence, cigarettes, uncomplicated; Z86.59 Personal history of other mental and behavioral disorders; Z87.820 Personal history of traumatic brain injury; Z88.6 Allergy status to analgesic agent; Z91.018 Allergy to other foods; Z91.040 Latex allergy status; Z79.899 Other long term (current) drug therapy ==

== ENCOUNTER → 2023-01-10 | Outpatient (CLI) | payer OTHER ==
[~2023-01-10] MED LIST changes: +BUPIVACAINE HCL 0.25% 10ML VIAL As Ordered ONE; +BUPIVACAINE HCL 0.25% 30ML VIAL As Ordered ONE; +TRIAMCINOLONE ACETONIDE SUSP 40MG/ML 1ML VIAL As Ordered ONE; +diazePAM 5MG TABLET As Ordered ONE; +oxyCODONE 5MG TAB As Ordered ONE
== END ==
LOC: M PAIN 09:30
PROVIDERS: ATTEND Anesthesiology
DX: M79.18 Myalgia, other site (principal); G47.33 Obstructive sleep apnea (adult) (pediatric); F17.210 Nicotine dependence, cigarettes, uncomplicated; Z86.59 Personal history of other mental and behavioral disorders; Z87.820 Personal history of traumatic brain injury; Z88.6 Allergy status to analgesic agent; Z91.018 Allergy to other foods; Z91.040 Latex allergy status; Z79.899 Other long term (current) drug therapy
CPT/HCPCS: 20553; J3301

== ENCOUNTER → 2023-02-07 | Outpatient (CLI) | payer OTHER ==
[~2023-02-07] MED LIST changes: -BUPIVACAINE HCL 0.25% 10ML VIAL As Ordered ONE; -BUPIVACAINE HCL 0.25% 30ML VIAL As Ordered ONE; -TRIAMCINOLONE ACETONIDE SUSP 40MG/ML 1ML VIAL As Ordered ONE; -diazePAM 5MG TABLET As Ordered ONE; -oxyCODONE 5MG TAB As Ordered ONE
== END ==
LOC: M PAIN 10:15
PROVIDERS: ATTEND Nurse Practitioner Family
DX: G89.29 Other chronic pain (principal); M79.10 Myalgia, unspecified site; F43.10 Post-traumatic stress disorder, unspecified; R73.03 Prediabetes; G47.33 Obstructive sleep apnea (adult) (pediatric); Z87.820 Personal history of traumatic brain injury; F32.A Depression, unspecified; F41.9 Anxiety disorder, unspecified; G47.00 Insomnia, unspecified; N52.2 Drug-induced erectile dysfunction; M54.50 Low back pain, unspecified; F17.210 Nicotine dependence, cigarettes, uncomplicated; Z79.899 Other long term (current) drug therapy; Z88.8 Allergy status to other drugs, medicaments and biological substances; Z91.040 Latex allergy status; Z91.018 Allergy to other foods

== ENCOUNTER → 2023-04-09 | Outpatient (CLI) | payer OTHER | LOC: M PAIN 09:30 | PROVIDERS: ATTEND Nurse Practitioner Family | DX: M79.10 Myalgia, unspecified site (principal); G89.29 Other chronic pain; G47.30 Sleep apnea, unspecified; F17.210 Nicotine dependence, cigarettes, uncomplicated; Z86.59 Personal history of other mental and behavioral disorders; Z87.820 Personal history of traumatic brain injury; Z88.6 Allergy status to analgesic agent; Z91.018 Allergy to other foods; Z91.040 Latex allergy status; Z79.899 Other long term (current) drug therapy ==

== ENCOUNTER → 2023-06-11 | Outpatient (CLI) | payer OTHER ==
[~2023-06-11] MED LIST changes: +TRIAMCINOLONE ACETONIDE SUSP 40MG/ML 1ML VIAL As Ordered ONE; +diazePAM 5MG TABLET As Ordered ONE; +oxyCODONE 5MG TAB As Ordered ONE
== END ==
LOC: M PAIN 14:15
PROVIDERS: ATTEND Anesthesiology
DX: M79.18 Myalgia, other site (principal); G89.29 Other chronic pain; F17.210 Nicotine dependence, cigarettes, uncomplicated; Z88.6 Allergy status to analgesic agent; Z91.018 Allergy to other foods; Z91.040 Latex allergy status; Z79.899 Other long term (current) drug therapy
CPT/HCPCS: 20553; J0665; J3301

== ENCOUNTER → 2023-07-31 | Outpatient (CLI) | payer OTHER ==
[~2023-07-31] MED LIST changes: -TRIAMCINOLONE ACETONIDE SUSP 40MG/ML 1ML VIAL As Ordered ONE; -diazePAM 5MG TABLET As Ordered ONE; -oxyCODONE 5MG TAB As Ordered ONE
== END ==
LOC: M PAIN 17:00
PROVIDERS: ATTEND Anesthesiology
DX: M79.18 Myalgia, other site (principal); M54.50 Low back pain, unspecified; M54.6 Pain in thoracic spine; Z79.891 Long term (current) use of opiate analgesic; Z79.899 Other long term (current) drug therapy

== ENCOUNTER 2023-10-18 06:17 | Day surgery (SDC) | payer OTHER ==
[~2023-10-18] VITALS: Ht 175.3 cm; Wt 88.9 kg
[~2023-10-18 06:17] MED LIST changes: +ATOR40TA75 PO; +BUPR-69 PO; +CARI1TAB7 PO; +CELE100C PO; +CLONI1TA PO; +HYDR50TA70 PO; +LUNE3TAB50 PO; +LYRI75CA PO; +NOXI1TAB PO; +OXYC-673 PO; +SERT-141 PO; +TAMS1CAP17 PO; +VARE1TAB2 PO; +ZYRT10TA12 PO
[2023-10-18] MEDS: LR 1,000 ML IV SCH (07:04)
[2023-10-18] MEDS ORDERED: fentaNYL 100 MCG/2 ML INJECTION As Ordered ONE (07:21)
[2023-10-18] MEDS ORDERED: propofoL 200 MG/20 ML VIAL As Ordered ONE (07:21)
[2023-10-18] MEDS ORDERED: ONDANSETRON 4MG 2ML VIAL As Ordered ONE (07:21)
[2023-10-18] MEDS ORDERED: LIDOCAINE 2% 100MG/5ML SDV (FOR ANES.) As Ordered ONE (07:21)
[2023-10-18] MEDS ORDERED: MIDAZOLAM INJ 2MG/2ML VIAL As Ordered ONE (07:22)
[2023-10-18] MEDS ORDERED: SEVOFLURANE INHAL SOLN 250 ML BTL As Ordered ONE (07:22)
[2023-10-18] MEDS ORDERED: LIDOCAINE 5% OINT 30GM TUBE As Ordered ONE (07:26)
[2023-10-18] MEDS ORDERED: dexmedeTOMIDine (4MCG/ML)200MCG/50ML BTL (PRECEDEX) As Ordered ONE (07:37)
[2023-10-18] MEDS ORDERED: ACETAMINOPHEN 1000MG 100ML IV BAG As Ordered ONE (07:57)
[2023-10-18] MEDS: ceFAZolin SOD 2 GM in IV 1 EA IV ONE (07:59)
[2023-10-18] MEDS: ISOVUE-M 300 61% 15ML VIAL As Ordered ONE (08:11)
[2023-10-18] MEDS ORDERED: LACRILUBE (AKWA TEARS) OPHTH OINT 3.5GM As Ordered ONE (08:22)
[2023-10-18] MEDS ORDERED: ONDANSETRON 4MG 2ML VIAL IV PRN (08:40)
[2023-10-18] MEDS ORDERED: fentaNYL 100 MCG/2 ML INJECTION IV PRN (08:40)
[2023-10-18] MEDS ORDERED: PERCOCET 5MG/325MG TAB PO PRN (08:55)
[2023-10-18 09:11] VITALS: BP 133/72; TEMP 97.2; O2SAT 94
== END 2023-10-18 09:40 | disposition home or self-care (01) ==
LOC: M SDC 06:17
PROVIDERS: ATTEND Urology
DX: N13.2 Hydronephrosis with renal and ureteral calculous obstruction (principal); R73.03 Prediabetes; G47.30 Sleep apnea, unspecified; Z79.899 Other long term (current) drug therapy; F17.210 Nicotine dependence, cigarettes, uncomplicated; Z88.8 Allergy status to other drugs, medicaments and biological substances; G62.9 Polyneuropathy, unspecified; F43.10 Post-traumatic stress disorder, unspecified; F32.A Depression, unspecified; F41.9 Anxiety disorder, unspecified
CPT/HCPCS: 52332; 52352; 76000; 82365; C2617; J0131; J0690; J1100; J2250; J2405; J3010; Q9967

== ENCOUNTER → 2023-12-27 | Outpatient (CLI) | payer OTHER ==
[~2023-12-27] MED LIST changes: +TRIAMCINOLONE ACETONIDE SUSP 40MG/ML 1ML VIAL As Ordered ONE; +diazePAM 5MG TABLET As Ordered ONE; +oxyCODONE 5MG TAB As Ordered ONE
== END ==
LOC: M PAIN 14:30
PROVIDERS: ATTEND Anesthesiology
DX: M79.18 Myalgia, other site (principal); G89.29 Other chronic pain; F43.10 Post-traumatic stress disorder, unspecified; R73.03 Prediabetes; G47.33 Obstructive sleep apnea (adult) (pediatric); F32.A Depression, unspecified; F41.9 Anxiety disorder, unspecified; G47.00 Insomnia, unspecified; N52.2 Drug-induced erectile dysfunction; M54.50 Low back pain, unspecified; Z88.8 Allergy status to other drugs, medicaments and biological substances; Z91.040 Latex allergy status; Z91.018 Allergy to other foods
CPT/HCPCS: 20552; J0665; J3301

== ENCOUNTER → 2024-01-30 | Outpatient (CLI) | payer OTHER ==
[~2024-01-30] MED LIST changes: -TRIAMCINOLONE ACETONIDE SUSP 40MG/ML 1ML VIAL As Ordered ONE; -diazePAM 5MG TABLET As Ordered ONE; -oxyCODONE 5MG TAB As Ordered ONE
== END ==
LOC: M PAIN 11:30
PROVIDERS: ATTEND Nurse Practitioner Family
DX: G89.29 Other chronic pain (principal); M79.18 Myalgia, other site; F43.10 Post-traumatic stress disorder, unspecified; R73.03 Prediabetes; G47.33 Obstructive sleep apnea (adult) (pediatric); F32.A Depression, unspecified; F41.9 Anxiety disorder, unspecified; G47.00 Insomnia, unspecified; M54.50 Low back pain, unspecified; F17.210 Nicotine dependence, cigarettes, uncomplicated; Z79.899 Other long term (current) drug therapy; Z88.8 Allergy status to other drugs, medicaments and biological substances; Z91.040 Latex allergy status; Z91.018 Allergy to other foods

== ENCOUNTER → 2024-07-21 | Outpatient (CLI) | payer OTHER | LOC: M PAIN 09:30 | PROVIDERS: ATTEND Nurse Practitioner Family | DX: M79.18 Myalgia, other site (principal); M54.50 Low back pain, unspecified; G89.29 Other chronic pain; E83.42 Hypomagnesemia; R73.03 Prediabetes; G47.33 Obstructive sleep apnea (adult) (pediatric); F32.A Depression, unspecified; F41.9 Anxiety disorder, unspecified; G47.00 Insomnia, unspecified; Z87.820 Personal history of traumatic brain injury; N52.2 Drug-induced erectile dysfunction; F17.210 Nicotine dependence, cigarettes, uncomplicated; Z79.891 Long term (current) use of opiate analgesic; Z79.899 Other long term (current) drug therapy; Z88.8 Allergy status to other drugs, medicaments and biological substances; Z91.018 Allergy to other foods; Z91.040 Latex allergy status ==

== ENCOUNTER → 2024-10-09 | Outpatient (CLI) | payer OTHER ==
[~2024-10-09] MED LIST changes: +TRIAMCINOLONE ACETONIDE SUSP 40MG/ML 1ML VIAL As Ordered ONE; +diazePAM 5MG TABLET As Ordered ONE; +oxyCODONE 5MG TAB As Ordered ONE
== END ==
LOC: M PAIN 14:30
PROVIDERS: ATTEND Anesthesiology
DX: M79.18 Myalgia, other site (principal); G89.29 Other chronic pain; R73.03 Prediabetes; M54.50 Low back pain, unspecified; F17.210 Nicotine dependence, cigarettes, uncomplicated; Z79.891 Long term (current) use of opiate analgesic; Z79.899 Other long term (current) drug therapy; Z88.8 Allergy status to other drugs, medicaments and biological substances; Z91.018 Allergy to other foods; Z91.040 Latex allergy status
CPT/HCPCS: 20553; J0665; J3301